=== PATIENT | female | born 1960 | race Caucasian/White ===

== ENCOUNTER 2016-07-08 06:09 | Emergency (ER) | payer OTHER ==
[~2016-07-08] VITALS: Ht 170.2 cm; Wt 72.5 kg
[~2016-07-08 06:09] MED LIST: ATEN1TAB74 PO; CITA20TA4 PO; LISI-363 PO; TRAZ100 PO
[2016-07-08] MEDS ORDERED: LISI-515 PO (06:22)
[2016-07-08 06:23] VITALS: BP 143/86; PULSE 76; RESP 18; TEMP 97.6; O2SAT 100
[2016-07-08] MEDS ORDERED: KETOROLAC TROMETHAMINE 60 MG/2 ML (IM) VIAL IM ONE (07:00)
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
[2016-07-08 07:28] VITALS: BP 134/84; PULSE 58; RESP 16; O2SAT 100
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
--- NOTE | 2016-07-08 08:02 | PD ---
Physical Exam Narrative GENERAL: Well-nourished, well-developed patient. well appearing SKIN: Warm and dry. HEAD: Normocephalic EYES: No injection or drainage. ENT: No nasal drainage noted. NECK: Supple, trachea midline. points to pain to bilateral paraspinal areas RESPIRATORY: No accessory muscle use. back: ttp to right lumbar paraspinal area without midline pain or step off NEUROLOGICAL: Awake and alert. Motor and sensory grossly within normal limits. Normal speech. Data Data Last Documented VS Vital Signs Date Time Temp Pulse Resp B/P Pulse Ox O2 Delivery O2 Flow Rate FiO2 07/08/16 08:40 56 16 143/97 98 Room Air 07/08/16 06:[address] Thorax/ Chest Wo Iv Contras (07/08/16 06:48) Ct Cerv Spine W/O Contrast (07/08/16 06:48) Ct Thor Spine W/O Contrast (07/08/16 06:48) Wrist, Complete ([id number]) (07/08/16 06:48) Ketorolac Inj (Toradol Inj) (07/08/16 07:00) Spine, Lumbar Comp W/Obliq (07/08/16 ) MDM Supervised Visit with REBECCA: No Interpretation(s) Last 24 hours Impressions Wrist X-Ray 07/08/16 0648 Signed Impressions: Service Date/Time: Friday, July 08, 2016 06:57 - CONCLUSION: No acute disease. David Reveles MD ct cervical/thoracic spine no fracture, ct thorax no acute lumbar xray no fracture, loss of disc height l5/s1, no fracture Narrative Course signed over to me to follow imaging and if normal to dc on review of imaging ct thorax ordered by mistake after discussion with patient , patient agrees to hold on ct head and will try to cancel ct thorax, agrees to xrays of lumbar spine added on given right sided pain and if persists mri as an outpatient. lengthy discussion with patient about imaging results and pain not over area with loss of disc space, agrees to no further imaging here and will follow with primary for further care, Patient denies any new complaints and states that they are feeling better. Patient happy with care, all questions answered. Patient knows that follow up is incumbent on them and to return to the emergency room immediately if new or worsening symptoms develop. Patient given strict return precautions, vitals reviewed and are normal, agrees to further workup as an outpatient. Diagnosis Primary Impression: Right low back pain Qualified Code: M54.5 - Acute right-sided low back pain without sciatica Additional Impression: Headache Qualified Code: R51 - Acute nonintractable headache, unspecified headache type Patient Instructions: General Instructions Additional Instruction: follow with primary monday, return as needed, alternate tylenol and motrin, don' t drive while taking muscle relaxant Med/Other Pt SpecificInfo: Prescription(s) given Scripts Metaxalone 400 Mg [id number] Mg PO BID PRN (PAIN SCALE 1 TO 10) #15 TAB Prov:Josi Major MD 07/08/16 Disposition: 01 DISCHARGE HOME Condition: Stable Josi Major MD Jul 08, 2016 08:02
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
[2016-07-08 08:40] VITALS: BP 143/97; PULSE 56; RESP 16; O2SAT 98
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
[2016-07-08] MEDS ORDERED: META1TAB17 PO ×2 (08:58→09:00)
== END 2016-07-08 09:13 | disposition home or self-care (01) ==
LOC: PHED 06:09
DX: M54.5 Low back pain (principal); R51 Headache; M54.2 Cervicalgia; M54.6 Pain in thoracic spine; M25.531 Pain in right wrist; I10 Essential (primary) hypertension; E07.9 Disorder of thyroid, unspecified; Z86.59 Personal history of other mental and behavioral disorders; V89.2XXA Person injured in unspecified motor-vehicle accident, traffic, initial encounter; Y92.410 Unspecified street and highway as the place of occurrence of the external cause
CPT/HCPCS: 71250; 72110; 72125; 72128; 73110; 96372; 99285; J1885

== ENCOUNTER 2016-11-20 09:14 | Emergency (ER) | payer OTHER ==
[~2016-11-20] VITALS: Ht 170.2 cm; Wt 66.0 kg
[~2016-11-20 09:14] MED LIST changes: -ATEN1TAB74 PO; -CITA20TA4 PO; -LISI-363 PO; +LISI-515 PO; +META1TAB17 PO; -TRAZ100 PO
[2016-11-20 09:18] VITALS: BP 131/72; PULSE 71; RESP 16; TEMP 98.3; O2SAT 100
--- NOTE | 2016-11-20 09:32 | PD ---
HPI Chief Complaint: Pain: Acute or Chronic Time Seen by Provider: 09:25 Travel History International Travel<30 days: No Contact w/Intl Traveler<30days: No Traveled to known affect area: No History of Present Illness HPI She presents with worsening left lateral foot pain over several days. Denies any nausea vomiting diarrhea or fever. Denies any trauma misstep or fall. Reports increased edema erythema and pain on weightbearing. Tetanus is up-to- date. PFSH Past Medical History Depression: Yes Diabetes: No Diminished Hearing: No Hypertension: Yes Thyroid Disease: Yes ?: Not Menopausal: Yes : 4 Para: 2 Miscarriage: 2 Past Surgical History Tonsillectomy: Yes Other Surgery: Yes (BREAST AUGMENTATION) Social History Alcohol Use: Yes ([facility]) Tobacco Use: No (QUIT 1994) Substance Use: Yes Allergies-Medications (Allergen,Severity, Reaction): Coded Allergies: No Known Allergies (Verified , 11/20/16) Reported Meds & Prescriptions Reported Meds & Active Scripts Active Reported Lisinopril 20 Mg Tab 20 Mg PO DAILY Review of Systems General / Constitutional: No: Fever Eyes: No: Visual changes HENT: No: Headaches Cardiovascular: No: Chest Pain or Discomfort Respiratory: No: Shortness of Breath Gastrointestinal: No: Abdominal Pain Genitourinary: No: Dysuria Musculoskeletal: No: Pain Skin: No Rash Neurologic: No: Weakness Psychiatric: No: Depression Endocrine: No: Polydipsia Hematologic/Lymphatic: No: Easy Bruising Physical Exam Narrative GENERAL: Well-nourished, well-developed patient. SKIN: Focused skin assessment warm/dry. HEAD: Normocephalic. EYES: No scleral icterus. No injection or drainage. NECK: Supple, trachea midline. No JVD or lymphadenopathy. CARDIOVASCULAR: Regular rate and rhythm without murmurs, gallops, or rubs. RESPIRATORY: Breath sounds equal bilaterally. No accessory muscle use. GASTROINTESTINAL: Abdomen soft, non-tender, nondistended. MUSCULOSKELETAL: No cyanosis, or edema. BACK: Nontender without obvious deformity. No CVA tenderness. Examination the left foot over the fourth and fifth metatarsals does reveal erythema edema and tenderness to palpation without any obvious bony deformities or ecchymosis Data Data Last Documented VS Vital Signs Date Time Temp Pulse Resp B/P (MAP) Pulse Ox O2 Delivery O2 Flow Rate FiO2 11/20/16 09:18 98.3 71 16 131/72 (91) 100 Orders Orders Foot, Limited (2vws) (11/20/16 ) MDM Medical Decision Making Medical Screen Exam Complete: Yes Emergency Medical Condition: Yes Differential Diagnosis Metatarsal fracture, cellulitis, contusion Narrative Course Assessment and plan discussed with patient at bedside. Foot films reveal no acute fracture. Diagnosis Primary Impression: Cellulitis Qualified Codes: L03.116 - Cellulitis of left lower limb Patient Instructions: General Instructions Additional Instructions: Motrin or Tylenol for pain, follow-up with PCP, encouraged antibacterial soap and water 2 times per day, return to emergency with any onset of new symptoms. Patient has crutches at home a use these for comfort. Ice and elevation. Med/Other Pt SpecificInfo: Prescription(s) given Scripts Clindamycin (Clindamycin) 150 Mg Cap 300 MG PO TID for Infection for 7 Days, CAP 0 Refills Prov: Alfredo Modi MD 11/20/16 Disposition: 01 DISCHARGE HOME Condition: Good Alfredo Modi MD Nov 20, 2016 09:32
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
[2016-11-20] MEDS ORDERED: CLIN1CAP5 PO (09:59)
[2016-11-20] MEDS ORDERED: TRAM50TA PO (10:12)
== END 2016-11-20 10:19 | disposition home or self-care (01) ==
LOC: PHED 09:14
DX: L03.116 Cellulitis of left lower limb (principal); M25.572 Pain in left ankle and joints of left foot; F32.9 Major depressive disorder, single episode, unspecified; I10 Essential (primary) hypertension; E07.9 Disorder of thyroid, unspecified; Z87.891 Personal history of nicotine dependence
CPT/HCPCS: 73620; 99283

== ENCOUNTER 2017-05-25 10:45 | Inpatient (IN) | payer OTHER ==
[~2017-05-25] VITALS: Ht 170.2 cm; Wt 60.5 kg
[2017-05-25] VITALS (16 sets, daily range): BP systolic 76–114; BP diastolic 51–81; PULSE 47–84; RESP 16–24; TEMP 97.6–98.6; O2SAT 97–100
[~2017-05-25 10:45] MED LIST changes: +CLIN150C14 PO; -META1TAB17 PO; +TRAM50TA PO
[2017-05-25] MEDS ORDERED: SODIUM CHLOR 0.9% 1000 ML INJ 800 ML IV ONE (11:02)
[2017-05-25] MEDS ORDERED: SODIUM CHLOR 0.9% 1000 ML INJ 1,000 ML IV ONE (11:02)
--- NOTE | 2017-05-25 11:08 | PD ---
HPI Chief Complaint: Dizziness Time Seen by Provider: 10:57 Travel History International Travel<30 days: No Contact w/Intl Traveler<30days: No Traveled to known affect area: No History of Present Illness HPI 56-year-old female with history of chronic back pain, here for evaluation of dizziness/lightheadedness, generalized weakness, nausea, vomiting, diarrhea, low back/flank pain/mid scapular pain. Patient reports that the symptoms of dizziness/lightheadedness started today. For the past couple of days she has been having intermittent aches that have been mid scapular, no modifying factors , pain is sharp, currently she does not have pain in this region. Right now she has right flank pain that radiates to her left lower back that she describes as an ache. No urinary or bowel incontinence or retention. No dysuria or hematuria. No fevers or chills. She denies illicit drug use. Chart review shows that the patient has been here before intoxicated with alcohol. She states she has not had any alcohol in "a while." She has had a few episodes of vomiting and diarrhea over the last couple of days and has some mild left lower quadrant abdominal pain that she describes as an ache, worse with movements. No melena or hematochezia. Emesis is clear. She has had little to eat or drink over the last 2 days of fever of vomiting. [facility] Past Medical History Depression: Yes Diabetes: No Diminished Hearing: No Hypertension: Yes Thyroid Disease: Yes ?: Not Menopausal: Yes : 4 Para: 2 Miscarriage: 2 Past Surgical History Tonsillectomy: Yes Other Surgery: Yes (BREAST AUGMENTATION) Social History Alcohol Use: No (denies) Tobacco Use: No (QUIT 1994) Substance Use: Yes Allergies-Medications (Allergen,Severity, Reaction): Coded Allergies: No Known Allergies (Verified Allergy, Unknown, 05/25/17) Reported Meds & Prescriptions Reported Meds & Active Scripts Active Tramadol (Tramadol HCl) 50 Mg Tab 50 Mg PO Q8H PRN Clindamycin (Clindamycin HCl) 150 Mg Cap 300 Mg PO TID 7 Days Reported Lisinopril 20 Mg Tab 20 Mg PO DAILY Review of Systems Except as stated in HPI: all other systems reviewed are Neg Physical Exam Narrative GENERAL: Well-developed, thin, awake, alert, no apparent distress. SKIN: Focused skin assessment warm/dry. No rash. HEAD: Atraumatic. Normocephalic. EYES: Pupils equal and round. No scleral icterus. No injection or drainage. ENT: Mucous membranes pink and moist. NECK: Trachea midline. No JVD. CARDIOVASCULAR: Regular rate and rhythm. RESPIRATORY: No accessory muscle use. Clear to auscultation. Breath sounds equal bilaterally. GASTROINTESTINAL: Abdomen soft, nondistended. Mild left lower quadrant tenderness without peritoneal signs. Normal bowel sounds. No hernias. MUSCULOSKELETAL: No obvious deformities. No clubbing. No cyanosis. No edema. No midline vertebral step-off or tenderness. Mild right flank tenderness. NEUROLOGICAL: Awake and alert. No obvious cranial nerve deficits. Motor grossly within normal limits. Normal speech. PSYCHIATRIC: Appropriate mood and affect; insight and judgment normal. Data Data Last Documented VS Vital Signs Date Time Temp Pulse Resp B/P (MAP) Pulse Ox O2 Delivery O2 Flow Rate FiO2 05/25/17 16:08 67 16 101/61 (74) 100 Room Air 05/25/17 11:05 97.6 Orders Orders Sepsis Workup Initiated (05/25/17 ) Electrocardiogram (05/25/17 11:02) Complete Blood Count With Diff (05/25/17 11:02) Comprehensive Metabolic Panel (05/25/17 11:02) Prothrombin Time / Inr (Pt) (05/25/17 11:02) Act Partial Throm Time (Ptt) (05/25/17 11:02) Lactic Acid Sepsis Protocol (05/25/17 11:02) Lipase (05/25/17 11:02) Ckmb (Isoenzyme) Profile (05/25/17 11:02) Troponin I (05/25/17 11:02) Urinalysis - C+S If Indicated (05/25/17 11:02) Blood Culture (05/25/17 11:02) Chest, Single Ap (05/25/17 11:02) Ecg Monitoring (05/25/17 11:02) Iv Access Insert/Monitor (05/25/17 11:02) Oximetry (05/25/17 11:02) Sodium Chlor 0.9% 1000 Ml Inj (Ns 1000 M (05/25/17 11:02) Sodium Chlor 0.9% 1000 Ml Inj (Ns 1000 M (05/25/17 11:02) Alcohol (Ethanol) (05/25/17 11:02) Drug Screen, Random Urine (05/25/17 11:02) Urine Culture (05/25/17 12:50) Ceftriaxone Inj (Rocephin Inj) (05/25/17 13:15) Potassium Chloride (Kcl) (05/25/17 13:15) Ct Abd/Pel W/O Iv Contrast (05/25/17 ) Sodium Chlor 0.9% 1000 Ml Inj (Ns 1000 M (05/25/17 13:48) Basic Metabolic Panel (Bmp) (05/25/17 14:31) Protein Corrected Calcium(Pcc) (05/25/17 14:47) Labs Laboratory Tests Test 05/25/17 11:35 05/25/17 12:50 05/25/17 14:47 White Blood Count 14.0 TH/MM3 Red Blood Count 3.61 MIL/MM3 Hemoglobin 12.3 GM/DL Hematocrit 37.1 % Mean Corpuscular Volume 102.8 FL Mean Corpuscular Hemoglobin 34.0 PG Mean Corpuscular Hemoglobin Concent 33.1 % Red Cell Distribution Width 15.7 % Platelet Count 313 TH/MM3 Mean Platelet Volume 9.5 FL Neutrophils (%) (Auto) 77.8 % Lymphocytes (%) (Auto) 13.5 % Monocytes (%) (Auto) 8.1 % Eosinophils (%) (Auto) 0.2 % Basophils (%) (Auto) 0.4 % Neutrophils # (Auto) 10.9 TH/MM3 Lymphocytes # (Auto) 1.9 TH/MM3 Monocytes # (Auto) 1.1 TH/MM3 Eosinophils # (Auto) 0.0 TH/MM3 Basophils # (Auto) 0.1 TH/MM3 CBC Comment DIFF FINAL Differential Comment Prothrombin Time 12.5 SEC Prothromb Time International Ratio 1.2 RATIO Activated Partial Thromboplast Time 27.3 SEC Blood Urea Nitrogen 36 MG/DL 35 MG/DL Creatinine 2.70 MG/DL 2.30 MG/DL Random Glucose 103 MG/DL 86 MG/DL Total Protein 8.1 GM/DL 7.0 GM/DL Albumin 3.3 GM/DL Calcium Level 8.5 MG/DL 7.4 MG/DL Alkaline Phosphatase 120 U/L Aspartate Amino Transf (AST/SGOT) 123 U/L Alanine Aminotransferase (ALT/SGPT) 56 U/L Total Bilirubin 1.6 MG/DL Sodium Level 128 MEQ/L 131 MEQ/L Potassium Level 2.4 MEQ/L 2.4 MEQ/L Chloride Level 86 MEQ/L 94 MEQ/L Carbon Dioxide Level 24.5 MEQ/L 25.0 MEQ/L Anion Gap 18 MEQ/L 12 MEQ/L Estimat Glomerular Filtration Rate 18 ML/MIN 22 ML/MIN Lactic Acid Level 1.8 mmol/L Total Creatine Kinase 95 U/L Troponin I LESS THAN 0.02 NG/ML Lipase 206 U/L Ethyl Alcohol Level LESS THAN 3 MG/DL Urine Collection Type CATH Urine Color YELLOW Urine Turbidity CLEAR Urine pH 6.5 Urine Specific Waucoma LESS/EQUAL 1.005 Urine Protein 30 mg/dL Urine Glucose (UA) NEG mg/dL Urine Ketones NEG mg/dL Urine Occult Blood TRACE Urine Nitrite NEG Urine Bilirubin NEG Urine Urobilinogen 0.2 MG/DL Urine Leukocyte Esterase TRACE Urine RBC 10-14 /hpf Urine WBC 15-19 /hpf Urine Squamous Epithelial Cells 0-5 /hpf Urine Bacteria FEW /hpf Urine Hyaline Casts 3-5 /lpf Microscopic Urinalysis Comment CULTURE INDICATED Urine Collection Time 12:50 Urine Opiates Screen NEG Urine Barbiturates Screen NEG Urine Amphetamines Screen NEG Urine Benzodiazepines Screen NEG Urine Cocaine Screen NEG Urine Cannabinoids Screen NEG Protein Corrected Calcium 7.5 MG/DL MDM Medical Decision Making Medical Screen Exam Complete: Yes Emergency Medical Condition: Yes Medical Record Reviewed: Yes Interpretation(s) EKG: Sinus, rate 64, normal axis, normal intervals, no acute ischemic abnormality. Differential Diagnosis Sepsis, dehydration, metabolic abnormality, UTI, ACS, pneumonia, colitis, diverticulitis, Narrative Course Initial vital signs show heart rate 79, blood pressure 76/51, pulse ox 99% on room air, oral temperature 97.6F. CBC: WBC 14, hemoglobin 12.3, hematocrit 37, platelets 313, MCV 102.8. CMP is remarkable for sodium 120, potassium 2.4, chloride 86, anion gap 18, BUN 36, creatinine 2.7, GFR 18, AST 123, ALT 56, otherwise unremarkable. Cardiac enzymes are negative. Lipase is 206. Lactic acid is 1.8. Alcohol level is negative. UA: 30 protein, trace leukocyte esterase, 10-14 RBCs, 15-19 WBCs, few bacteria, 3-5 hyaline casts, culture indicated. Chest x-ray: No acute cardiopulmonary process. CT abdomen pelvis: CONCLUSION: 1. Two small punctate 2 mm nonobstructing calyceal calculi in the inferior pole of the left kidney. No evidence for obstructive uropathy. 2. Profound hepatic steatosis. 3. Normal appendix. No evidence for bowel obstruction. The patient was made aware of all findings. She was given 2 L of normal saline IV with slight improvement in her blood pressure to 100/70. She was also provided 60 mEq of oral potassium. She admits to history of alcohol abuse, but states that she does not drink nearly as much as she used to. She attends AA meetings, however she did have a relapse about 5 days ago. I told her that my recommendation is for her to stay in the hospital overnight where her potassium can be replaced and she can be given IV fluids to treat her renal insufficiency. Patient is adamant at this point that she does not want to stay in the hospital. She states that she has pets at home that rely on her. I told her I would like to repeat her BMP and would like her to reconsider. She is amenable to this plan. Repeat BMP about 4 hours after initial BMP after the patient had received 2 L of normal saline IV and 60 mEq of oral potassium is remarkable for sodium 131, potassium 2.4, chloride 94, BUN 35, creatinine 2.3, GFR 22, calcium 7.4. Patient was made aware of repeat BMP results and my recommendation is to still admit her for overnight observation for further treatment of dehydration/ electrolyte abnormality. She is now amenable to staying. She will be written for parenteral potassium. Case discussed with hospitalist Dr. London who prefer that the patient be admitted to the [facility] service as the patient's blood pressure remains persistently low. Case discussed with justice of the peace Dr. Rosario who will admit the patient to her service. Diagnosis Primary Impression: Dehydration Additional Impressions: Acute kidney injury Hypokalemia Hyponatremia UTI (urinary tract infection) Qualified Codes: N39.0 - Urinary tract infection, site not specified; R31.9 - Hematuria, unspecified Admitting Information Admitting Physician Requests: Wilfred Vargas MD May 25, 2017 11:08
--- NOTE | 2017-05-25 11:33 | RADRPT ---
EXAM DATE/TIME: 05/25/2017 11:08 [facility] COMPARISON: No previous studies available for comparison. INDICATIONS : Mid scapular chest pain. Nausea, vomiting, diarrhea. MEDICAL HISTORY : Hypertension. Thyroid disease. SURGICAL HISTORY : Tonsillectomy. ENCOUNTER: Initial ACUITY: 2 days PAIN SCORE: 5/10 LOCATION: chest FINDINGS: A single view of the chest demonstrates the lungs to be symmetrically aerated without evidence of mas s, infiltrate or effusion. The cardiomediastinal contours are unremarkable. Osseous structures are intact with a mild levoscoliosis of the thoracolumbar spine. CONCLUSION: No acute cardiopulmonary process. Damon Cardona MD on May 25, 2017 at 11:30 Board Certified Radiologist. This report was verified electronically.
[2017-05-25 11:54] LABS: AUTOMATED NEUTROPHIL # 10.9 TH/MM3 (1.8-7.7); BASOPHIL # 0.1 TH/MM3 (0-0.2); BASOPHIL % 0.4 % (0.0-2.0); EOSINOPHIL % 0.2 % (0.0-4.0); HEMATOCRIT 37.1 % (35.0-46.0); HEMOGLOBIN 12.3 GM/DL (11.6-15.3); LYMPH % 13.5 % (9.0-44.0); LYMPHOCYTE # 1.9 TH/MM3 (1.0-4.8); MEAN CELL VOLUME 102.8 FL (80.0-100.0); MEAN CORPUSCULAR HGB CONC 33.1 % (32.0-36.0); MEAN PLATELET VOLUME 9.5 FL (7.0-11.0); MONO % 8.1 % (0.0-8.0); MONOCYTE # 1.1 TH/MM3 (0-0.9); NEUT % 77.8 % (16.0-70.0); PLATELET COUNT 313 TH/MM3 (150-450); RED BLOOD COUNT 3.61 MIL/MM3 (4.00-5.30); RED CELL DISTRIBUTION WIDTH 15.7 % (11.6-17.2)
[2017-05-25 12:35] LABS: INTERNATIONAL NORMALIZED RATIO 1.2 RATIO; PROTHROMBIN TIME - PATIENT 12.5 SEC (9.8-11.6)
[2017-05-25 12:43] LABS: ALBUMIN 3.3 GM/DL (3.4-5.0); ALKALINE PHOSPHATASE 120 U/L (45-117); ALT (GPT) 56 U/L (10-53); AST (GOT) 123 U/L (15-37); BICARBONATE 24.5 MEQ/L (21.0-32.0); BLOOD UREA NITROGEN 36 MG/DL (7-18); CALCIUM 8.5 MG/DL (8.5-10.1); CHLORIDE 86 MEQ/L (98-107); GLOMERULAR FILTRATION RATE 18 ML/MIN (>89); GLUCOSE,RANDOM 103 MG/DL (74-106); SODIUM (NA) 128 MEQ/L (136-145); TOTAL BILIRUBIN ADULT 1.6 MG/DL (0.2-1.0); TOTAL PROTEIN 8.1 GM/DL (6.4-8.2); TROPONIN I LESS THAN 0.02 NG/ML (0.02-0.05)
[2017-05-25 13:04] LABS: BLOOD, URINE TRACE (NEG); GLUCOSE,URINE NEG (NEG); KETONE, URINE NEG (NEG); NITRITE,URINE NEG (NEG); PH, URINE 6.5 (5.0-8.5); URINE COLOR YELLOW (YELLW/STRAW); URINE LEUKOCYTE ESTERASE TRACE (NEG)
[2017-05-25 13:08] LABS: BILIRUBIN, URINE NEG (NEG)
[2017-05-25 13:09] LABS: BACTERIA, URINE FEW /hpf; SQUAMOUS EPITHELIAL CELL URINE 0-5 /hpf (0-5); WBC, URINE 15-19 /hpf (0-5)
[2017-05-25] MEDS ORDERED: cefTRIAXone INJ 1,000 MG in SODIUM CHLORIDE 0.9% INJ 100 ML IV ONE (13:15)
[2017-05-25] MEDS ORDERED: POTASSIUM CHLORIDE 20 MEQ CONTROLLED RELEASE TAB PO ONE (13:15)
[2017-05-25] MEDS ORDERED: SODIUM CHLOR 0.9% 1000 ML INJ 1,000 ML IV SCH (13:48)
--- NOTE | 2017-05-25 14:21 | RADRPT ---
EXAM DATE/TIME: 05/25/2017 13:35 [facility] COMPARISON: No previous studies available for comparison. INDICATIONS : Lower abdominal and back pain. Nausea, vomiting and diarrhea. ORAL CONTRAST: No oral contrast ingested. RADIATION DOSE: 5.46 CTDIvol (mGy) MEDICAL HISTORY : Hypertension. Hypothyroidism. SURGICAL HISTORY : None. ENCOUNTER: Initial ACUITY: 2 days PAIN SCALE: 2/10 LOCATION: Bilateral lower quadrant TECHNIQUE: Volumetric scanning of the abdomen and pelvis was performed. Using automated exposure control and ad justment of the mA and/or kV according to patient size, radiation dose was kept as low as reasonably achievable to obtain optimal diagnostic quality images. DICOM format image data is available electro nically for review and comparison. FINDINGS: LOWER LUNGS: The visualized lower lungs are clear. LIVER: Prominent diffuse decreased hepatic attenuation and hepatomegaly without focal mass or intrahepatic d uctal dilatation. The gallbladder is grossly unremarkable by CT. SPLEEN: Normal size without lesion. PANCREAS: Within normal limits. KIDNEYS: There are 2 small punctate 2 mm calyceal calcifications in the inferior pole of the left kidney. The kidneys are otherwise symmetrical in size without evidence for hydronephrosis or contour deforming ab normality. ADRENAL GLANDS: Within normal limits. VASCULAR: There is no aortic aneurysm. BOWEL/MESENTERY: The stomach, small bowel, and colon demonstrate no acute abnormality. There is no free intraperitone al air or fluid. Appendix is visualized and normal in appearance. ABDOMINAL WALL: Within normal limits. RETROPERITONEUM: There is no lymphadenopathy. BLADDER: No wall thickening or mass. No bladder calculi. REPRODUCTIVE: Within normal limits. INGUINAL: There is no lymphadenopathy or hernia. MUSCULOSKELETAL: Within normal limits for patient age. CONCLUSION: 1. Two small punctate 2 mm nonobstructing calyceal calculi in the inferior pole of the left kidney. N o evidence for obstructive uropathy. 2. Profound hepatic steatosis. 3. Normal appendix. No evidence for bowel obstruction. Yoshi Barnes MD on May 25, 2017 at 14:08 Board Certified Radiologist. This report was verified electronically.
[2017-05-25 15:39] LABS: CALCIUM 7.4 MG/DL (8.5-10.1); CREATININE 2.3 MG/DL (0.50-1.00)
[2017-05-25 16:02] LABS: CALCIUM-PROTEIN CORRECTED 7.5 MG/DL (8.5-10.1)
[2017-05-25] MEDS: POTASSIUM CHLOR 20 MEQ PREMIX 100 ML IV SCH ×2 (16:42→19:04)
--- NOTE | 2017-05-25 17:55 | HHI.HP ---
[facility] Service Critical Care Medicine Primary Care Physician Logan Bermudez M.D. Admission Diagnosis Dehydration, OMAR, hypokalemia, hyponatremia, UTI Diagnosis: Travel History International Travel<30 Days: No Contact w/Intl Traveler <30 Da: No Traveled to Known Affected Are: No History of Present Illness History of Present Illness HPI This is a 56-year-old female that presented to the [place] emergency department with complaints of dizziness/lightheadedness, generalized weakness, nausea, vomiting, diarrhea, low back/flank pain/mid scapular pain. Patient reports that the symptoms of dizziness/lightheadedness started yesterday and became progressively worse. Right now she has right flank pain and right lower pelvis that radiates to her left lower back that she describes as an ache. No urinary or bowel incontinence or retention. No dysuria or hematuria. No fevers or chills. She denies illicit drug use. She states she has not had any alcohol in a while, however reported to me she had approximately had a alcoholic binge 4-5 days ago She has had a few episodes of vomiting and diarrhea over the last couple of days, no melena or hematochezia. Emesis is clear. She has had little to eat or drink over the last 2 days of fever of vomiting. The patient's medical history significant for chronic back pain which she takes baclofen, and Motrin 800 mg. The patient also has a history of hypertension and takes Lisinopril last dose reportedly 2 days ago. Critical care medicine is consulted for patient's low blood pressure. Upon my evaluation in the ED patient's blood pressure systolic 109-115. Patient alert and oriented 3 responding to questions appropriately, with heart rate in the 70s. Patient currently drinking water and Gatorade, and occasionally having bouts of nausea. 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 Reported alcohol binge 4-5 days ago Tobacco Use: No (QUIT 1994) Substance Use: Yes Allergies-Medications Allergies-Medications (Allergen,Severity, Reaction): Coded Allergies: No Known Allergies (Verified Allergy, Unknown, 05/25/17) Reported Meds & Prescriptions Reported Meds & Active Scripts Active Tramadol (Tramadol HCl) 50 Mg Tab 50 Mg PO Q8H PRN Clindamycin (Clindamycin HCl) 150 Mg Cap 300 Mg PO TID 7 Days Reported Lisinopril 20 Mg Tab 20 Mg PO DAILY ROS Review of Systems Except as stated in HPI: 12 point review of systems negative with the exception of HPI Physical Exam Vital Signs Vital Signs Date Time Temp Pulse Resp B/P (MAP) Pulse Ox O2 Delivery O2 Flow Rate FiO2 05/25/17 16:49 49 16 109/66 (80) 99 Room Air 05/25/17 16:08 67 16 101/61 (74) 100 Room Air 05/25/17 15:03 47 16 97/58 (71) Room Air 05/25/17 14:05 64 16 101/68 (79) 100 Room Air 05/25/17 12:57 56 16 88/56 (67) 100 Room Air 05/25/17 11:51 58 16 91/60 (70) 100 Room Air 05/25/17 11:10 100 Room Air 05/25/17 11:05 97.6 84 16 80/69 (73) 97 Room Air 05/25/17 10:46 97.6 79 16 76/51 (59) 99 Physical Exam GENERAL: Well-developed well-nourished female of stated age in mild to SKIN: Warm and dry. HEAD: Atraumatic. Normocephalic. EYES: Pupils equal and round. 2 mm and brisk. EOMI. no scleral icterus. No injection or drainage. ENT: No nasal bleeding or discharge. Mucous membranes pink and moist. NECK: Trachea midline. No JVD. CARDIOVASCULAR: Normal rate, regular rhythm. RESPIRATORY: No accessory muscle use. Clear to auscultation. Breath sounds equal bilaterally. GASTROINTESTINAL: Abdomen soft, nondistended right lower quadrant pelvic region mild pain on deep palpation. No guarding. No rebound tenderness. Bowel sounds are present MUSCULOSKELETAL: Extremities without clubbing, cyanosis, or edema. No obvious deformities. NEUROLOGICAL: GCS 15 awake and alert. RASS 0. No gross focal/sensory deficits. Follows commands in all 4 extremities. Motor strength 5/5 bilateral upper and lower extremities Laboratory Laboratory Tests Test 05/25/17 11:35 05/25/17 12:50 05/25/17 14:47 White Blood Count 14.0 Red Blood Count 3.61 Hemoglobin 12.3 Hematocrit 37.1 Mean Corpuscular Volume 102.8 Mean Corpuscular Hemoglobin 34.0 Mean Corpuscular Hemoglobin Concent 33.1 Red Cell Distribution Width 15.7 Platelet Count 313 Mean Platelet Volume 9.5 Neutrophils (%) (Auto) 77.8 Lymphocytes (%) (Auto) 13.5 Monocytes (%) (Auto) 8.1 Eosinophils (%) (Auto) 0.2 Basophils (%) (Auto) 0.4 Neutrophils # (Auto) 10.9 Lymphocytes # (Auto) 1.9 Monocytes # (Auto) 1.1 Eosinophils # (Auto) 0.0 Basophils # (Auto) 0.1 CBC Comment DIFF FINAL Differential Comment Prothrombin Time 12.5 Prothromb Time International Ratio 1.2 Activated Partial Thromboplast Time 27.3 Blood Urea Nitrogen 36 35 Creatinine 2.70 2.30 Random Glucose 103 86 Total Protein 8.1 7.0 Albumin 3.3 Calcium Level 8.5 7.4 Alkaline Phosphatase 120 Aspartate Amino Transf (AST/SGOT) 123 Alanine Aminotransferase (ALT/SGPT) 56 Total Bilirubin 1.6 Sodium Level 128 131 Potassium Level 2.4 2.4 Chloride Level 86 94 Carbon Dioxide Level 24.5 25.0 Anion Gap 18 12 Estimat Glomerular Filtration Rate 18 22 Lactic Acid Level 1.8 Total Creatine Kinase 95 Troponin I LESS THAN 0.02 Lipase 206 Ethyl Alcohol Level LESS THAN 3 Urine Collection Type CATH Urine Color YELLOW Urine Turbidity CLEAR Urine pH 6.5 Urine Specific [place] LESS/EQUAL 1.005 Urine Protein 30 Urine Glucose (UA) NEG Urine Ketones NEG Urine Occult Blood TRACE Urine Nitrite NEG Urine Bilirubin NEG Urine Urobilinogen 0.2 Urine Leukocyte Esterase TRACE Urine RBC 10-14 Urine WBC 15-19 Urine Squamous Epithelial Cells 0-5 Urine Bacteria FEW Urine Hyaline Casts 3-5 Microscopic Urinalysis Comment CULTURE INDICATED Urine Collection Time 12:50 Urine Opiates Screen NEG Urine Barbiturates Screen NEG Urine Amphetamines Screen NEG Urine Benzodiazepines Screen NEG Urine Cocaine Screen NEG Urine Cannabinoids Screen NEG Protein Corrected Calcium 7.5 Date/Time Source Procedure Growth Status 05/25/17 11:35 Blood Peripheral Aerobic Blood Culture Pending Received 05/25/17 11:35 Blood Peripheral Anaerobic Blood Culture Pending Received 05/25/17 12:50 Urine Catheterized Urine Urine Culture Pending Received Result Diagram: 05/25/17 1135 05/25/17 1447 Imaging Last Impressions Chest X-Ray 05/25/17 1102 Signed Impressions: Service Date/Time: May 11:08 - CONCLUSION: No acute cardiopulmonary process. Damon Cardona MD Abdomen/Pelvis CT 05/25/17 0000 Signed Impressions: Service Date/Time: May 13:35 - CONCLUSION: 1. Two small punctate 2 mm nonobstructing calyceal calculi in the inferior pole of the left kidney. No evidence for obstructive uropathy. 2. Profound hepatic steatosis. 3. Normal appendix. No evidence for bowel obstruction. Yoshi Barnes MD Septic Shock Reassessment Septic shock perfusion: reassessment completed Caprini VTE Risk Assessment Caprini VTE Risk Assessment: Mod/High Risk (score >= 2) Caprini Risk Assessment Model Point Value = 1 Point Value = 2 Point Value = 3 Point Value = 5 Age 41-60 Minor surgery BMI > 25 kg/m2 Swollen legs Varicose veins or History of unexplained or recurrent spontaneous Oral contraceptives or hormone replacement Sepsis (< 1 month) Serious lung disease, including pneumonia (< 1 month) Abnormal pulmonary function Acute myocardial infarction Congestive heart failure (< 1 month) History of inflammatory bowel disease Medical patient at bed rest Age 61-74 Arthroscopic surgery Major open surgery (> 45 min) Laparoscopic surgery (> 45 min) Malignancy Confined to bed (> 72 hours) Immobilizing plaster cast Central venous access Age >= 75 History of VTE Family history of VTE Factor V Leiden Prothrombin 32063H Lupus anticoagulant Anticardiolipin antibodies Elevated serum homocysteine Heparin-induced thrombocytopenia Other congenital or acquired thrombophilia Stroke (< 1 month) Elective arthroplasty Hip, pelvis, or leg fracture Acute spinal cord injury (< 1 month) Prophylaxis Regimen Total Risk Factor Score Risk Level Prophylaxis Regimen 0-1 Low Early ambulation 2 Moderate Order ONE of the following: *Sequential Compression Device (SCD) *Heparin 5000 units SQ BID 3-4 Higher Order ONE of the following medications: *Heparin 5000 units SQ TID *Enoxaparin/Lovenox 40 mg SQ daily (WT < 150 kg, CrCl > 30 mL/min) *Enoxaparin/Lovenox 30 mg SQ daily (WT < 150 kg, CrCl > 10-29 mL/min) *Enoxaparin/Lovenox 30 mg SQ BID (WT < 150 kg, CrCl > 30 mL/min) AND/OR *Sequential Compression Device (SCD) 5 or more Highest Order ONE of the following medications: *Heparin 5000 units SQ TID (Preferred with Epidurals) *Enoxaparin/Lovenox 40 mg SQ daily (WT < 150 kg, CrCl > 30 mL/min) *Enoxaparin/Lovenox 30 mg SQ daily (WT < 150 kg, CrCl > 10-29 mL/min) *Enoxaparin/Lovenox 30 mg SQ BID (WT < 150 kg, CrCl > 30 mL/min) AND *Sequential Compression Device (SCD) Assessment and Plan Problem List: (1) Dehydration ICD Code: E86.0 - Dehydration Status: Acute (2) Right low back pain ICD Code: M54.5 - Low back pain Status: Acute (3) Headache ICD Code: R51 - Headache Status: Acute (4) Hypokalemia ICD Code: E87.6 - Hypokalemia Status: Acute (5) Hyponatremia ICD Code: E87.1 - Hypo-osmolality and hyponatremia Status: Acute (6) UTI (urinary tract infection) ICD Code: N39.0 - Urinary tract infection, site not specified Status: Acute (7) Acute kidney injury ICD Code: N17.9 - Acute kidney failure, unspecified Status: Acute (8) Electrolyte imbalance ICD Code: E87.8 - Other disorders of electrolyte and fluid balance, not elsewhere classified Assessment and Plan Assessment Is a 56-year-old female that presented with hypotension and hypokalemia and hyponatremia, initially with hypotension, now resolved. Admit to ICU. Plan by systems: Neurologic: Syncope Chronic back pain Neuro checks per ICU protocol Avoid long-acting sedative medication Patient previously on tramadol and Motrin 800 mg , baclofen home meds will hold for now We will avoid acetaminophen secondary to hepatomegaly, will avoid ketorolac secondary to elevated creatinine Consider fentanyl low-dose if needed for pain scale 7-[address] brain Obtain random cortisol level Respiratory: Maintain O2 sat greater than 92% Currently on room air O2 saturation 100% Incentive spirometry Duo nebs every 4 hours for wheezing as needed Cardiovascular: Hypotension History of hypertension Maintain MAP greater than 65 Continue IV fluids Initial troponin <0.02 Renal: Possible UTI OMAR No Koo indicated at this TMP- SMX 1 tab BID x 3 days -- Strict I/Os FEN/GI: Fatty liver Dehydration Nausea Elevated liver enzymes Hypoalbuminemia Continue IV fluids normal saline with 20 of KCL Replete electrolytes per ICU protocol Trend sodium levels every 6 hours Zofran for nausea Clear liquid diet Obtain triglyceride level Obtain hepatitis panel 05/25 Lipase 206 Obtain gallbladder ultrasound 05/25 albumin 3.3 Home med- lisinopril for hypertension-we will hold in the setting of OMAR Avoid nephrotoxic drugs Heme/ID: Leukocytosis Monitor CBC Provide TMP-SMX x 3 days for possible UTI-we will de-escalate upon culture results Follow-up blood and urine culture Endocrine: Hypothyroidism ? Thyroid disease noted in all previous medical records obtain Thyroid panel -- SSI Prophylaxis: GI Prophylaxis Protonix DVT Prophylaxis -- SCDs Heparin SQ BID Lines: Peripheral IVs 2. Central line if indicated Dispo: Level 3 admission Code Status Full Discussed Condition With Dr. Means, and ED RN at bedside Problem Qualifiers (1) UTI (urinary tract infection): Qualified Codes: N39.0 - Urinary tract infection, site not specified; R31.9 - Hematuria, unspecified Nedra Rosario MD May 25, 2017 17:55
[2017-05-25] MEDS ORDERED: MISCELLANEOUS NURSING INFORMATION XX SCH (18:00)
[2017-05-25] MEDS ORDERED: BISACODYL 10 MG SUPP RECTAL PRN (18:00)
[2017-05-25] MEDS ORDERED: LACTULOSE SYRUP 20 GM/30 ML CUP PO PRN (18:00)
[2017-05-25] MEDS ORDERED: RESP: ALBUTEROL 2.5 MG/IPRATROPIUM 0.5 MG NEB (PRN) INH (18:00)
[2017-05-25] MEDS ORDERED: SODIUM CHLORIDE 0.9% FLUSH 10 ML FLUSH IV FLUSH PRN (18:00)
[2017-05-25] MEDS ORDERED: SENNOSIDES 8.6 MG TAB PO PRN (18:00)
[2017-05-25] MEDS ORDERED: ONDANSETRON HCL 4 MG/2 ML VIAL IV PUSH PRN (18:00)
[2017-05-25] MEDS ORDERED: CHLORHEXIDINE GLUCONATE 2 % 1 PACK (2 CLOTHS) TOP PRN (18:00)
[2017-05-25] MEDS ORDERED: MAGNESIUM HYDROXIDE SUSP 30 ML CUP PO PRN (18:00)
[2017-05-25] MEDS: NS + KCL 20 MEQ INJ 1,000 ML IV SCH (19:04)
[2017-05-25] MEDS: HEPARIN SODIUM - SQ 10,000 UNITS/ML VIAL SQ SCH (20:19)
[2017-05-25] MEDS: SULFAMETHOXAZOLE-TRIMETHOPRIM DS 800-160 MG TAB PO SCH (20:19)
[2017-05-25] MEDS: DOCUSATE SODIUM 50 MG/SENNA 8.6 MG TAB PO SCH (20:19)
[2017-05-25] MEDS: SODIUM CHLORIDE 0.9% FLUSH 10 ML FLUSH IV FLUSH SCH (20:21)
[2017-05-25] MEDS: PANTOPRAZOLE SODIUM 40 MG VIAL IV PUSH SCH (20:21)
[2017-05-26] VITALS (28 sets, daily range): BP systolic 92–119; BP diastolic 58–80; PULSE 52–86; RESP 11–30; TEMP 98.1–99.4; O2SAT 100
[2017-05-26 01:34] LABS: CHOLESTEROL/ HDL RATIO 13.85 RATIO; FREE T3 1.68 PG/ML (2.18-3.98); HDL CHOLESTEROL 19.7 MG/DL (40.0-60.0); THYROXINE (T4) 9.4 MCG/DL (4.8-13.9)
--- NOTE | 2017-05-26 02:51 | RADRPT ---
EXAM DATE/TIME: 05/26/2017 02:25 [place] COMPARISON: CT BRAIN W/O CONTRAST, May 31, 2014, 23:11. INDICATIONS : Dizziness. RADIATION DOSE: 55.65 CTDIvol (mGy) MEDICAL HISTORY : Hypothyroidism. Hypertension. SURGICAL HISTORY : None. ENCOUNTER: Initial ACUITY: 1 day PAIN SCALE: 0/10 LOCATION: cranial TECHNIQUE: Multiple contiguous axial images were obtained of the head. Using automated exposure control and adj ustment of the mA and/or kV according to patient size, radiation dose was kept as low as reasonably a chievable to obtain optimal diagnostic quality images. DICOM format image data is available electro nically for review and comparison. FINDINGS: CEREBRUM: The ventricles are normal for age. No evidence of midline shift, mass lesion, hemorrhage or acute in farction. No extra-axial fluid collections are seen. POSTERIOR FOSSA: The cerebellum and brainstem are intact. The 4th ventricle is midline. The cerebellopontine angle i s unremarkable. EXTRACRANIAL: The visualized portion of the orbits is intact. SKULL: The calvaria is intact. No evidence of skull fracture. CONCLUSION: No acute disease. Diego El Jr., MD on May 26, 2017 at 2:49 Board Certified Radiologist. This report was verified electronically.
[2017-05-26] MEDS: CHLORHEXIDINE GLUCONATE 2 % 1 PACK (2 CLOTHS) TOP SCH (04:00)
[2017-05-26 04:54] LABS: AUTOMATED NEUTROPHIL # 5.3 TH/MM3 (1.8-7.7); BASOPHIL % 0.4 % (0.0-2.0); EOSINOPHIL % 0.5 % (0.0-4.0); HEMATOCRIT 26.7 % (35.0-46.0); HEMOGLOBIN 8.9 GM/DL (11.6-15.3); LYMPH % 15.5 % (9.0-44.0); LYMPHOCYTE # 1.1 TH/MM3 (1.0-4.8); MEAN CELL VOLUME 103.1 FL (80.0-100.0); MEAN CORPUSCULAR HEMOGLOBIN 34.2 PG (27.0-34.0); MEAN CORPUSCULAR HGB CONC 33.2 % (32.0-36.0); MEAN PLATELET VOLUME 8.6 FL (7.0-11.0); MONO % 11.7 % (0.0-8.0); MONOCYTE # 0.8 TH/MM3 (0-0.9); NEUT % 71.9 % (16.0-70.0); PLATELET COUNT 197 TH/MM3 (150-450); RED BLOOD COUNT 2.59 MIL/MM3 (4.00-5.30); RED CELL DISTRIBUTION WIDTH 15.1 % (11.6-17.2); WHITE BLOOD COUNT 7.2 TH/MM3 (4.0-11.0)
[2017-05-26 05:06] LABS: INTERNATIONAL NORMALIZED RATIO 1.3 RATIO; PROTHROMBIN TIME - PATIENT 13.5 SEC (9.8-11.6)
[2017-05-26 05:13] LABS: ALBUMIN 2.5 GM/DL (3.4-5.0); BICARBONATE 19.3 MEQ/L (21.0-32.0); CALCIUM-PROTEIN CORRECTED 7.6 MG/DL (8.5-10.1); CREATININE 1.8 MG/DL (0.50-1.00); MAGNESIUM 1.2 MG/DL (1.5-2.5); PHOSPHORUS 0.7 MG/DL (2.5-4.9); TOTAL BILIRUBIN ADULT 1.1 MG/DL (0.2-1.0); TOTAL PROTEIN 5.9 GM/DL (6.4-8.2)
[2017-05-26] MEDS ORDERED: ICU - CALL ORDERING PHYSICIAN PRN (06:00)
[2017-05-26] MEDS ORDERED: SODIUM CHLOR 0.9% IV ONE (06:00)
[2017-05-26] MEDS ORDERED: ICU - MAGNESIUM SULFATE 4 GM/NS 100 ML IV PRN ×2 (06:00)
[2017-05-26] MEDS ORDERED: ICU - MAGNESIUM OXIDE 400 MG TAB PO PRN (06:00)
[2017-05-26] MEDS ORDERED: CALCIUM GLUCONATE INJ 2 GM in SODIUM CHLORIDE 0.9% INJ 100 ML IV ONE (06:00)
[2017-05-26] MEDS ORDERED: CALCIUM GLUCONATE IV ONE (06:00)
[2017-05-26] MEDS ORDERED: ICU - POTASSIUM PHOSPHATE 30 MMOL/NS 250 ML IV PRN ×2 (06:00)
[2017-05-26] MEDS ORDERED: ICU - POTASSIUM PHOSPHATE MONOBASIC 500 MG TAB PO PRN (06:00)
[2017-05-26] MEDS ORDERED: POTASSIUM CHLORIDE 25 MEQ EFFERVESCENT TAB PO PRN (06:00)
[2017-05-26] MEDS ORDERED: ICU - MAGNESIUM SULFATE 2 GM/NS 100 ML IV PRN ×2 (06:00)
[2017-05-26] MEDS ORDERED: ICU - SODIUM PHOSPHATE 30 MMOL/NS 250 ML IV PRN ×2 (06:00)
[2017-05-26] MEDS ORDERED: ICU - D/C ICU ELECTROLYTE ORDERS PRN (06:00)
[2017-05-26] MEDS ORDERED: ICU - POTASSIUM CHLORIDE/AQUEOUS SOLN 40 MEQ/100 ML IVPB IV PRN (06:00)
[2017-05-26] MEDS: ICU - POTASSIUM CHLORIDE/AQUEOUS SOLN 20 MEQ/100 ML IVPB IV PRN ×4 (06:17→15:26)
[2017-05-26] MEDS: NS + KCL 20 MEQ INJ 1,000 ML IV SCH ×2 (06:20→20:37)
--- NOTE | 2017-05-26 07:08 | HHI.CCPN ---
Subjective Remarks/Hospital Course This is a 56-year-old female that presented to the [place] emergency department with complaints of dizziness/lightheadedness, generalized weakness, nausea, vomiting, diarrhea, low back/flank pain/mid scapular pain. Patient reports that the symptoms of dizziness/lightheadedness started yesterday and became progressively worse. Right now she has right flank pain and right lower pelvis that radiates to her left lower back that she describes as an ache. No urinary or bowel incontinence or retention. No dysuria or hematuria. No fevers or chills. She denies illicit drug use. She states she has not had any alcohol in a while, however reported to me she had approximately had a alcoholic binge 4-5 days ago She has had a few episodes of vomiting and diarrhea over the last couple of days, no melena or hematochezia. Emesis is clear. She has had little to eat or drink over the last 2 days of fever of vomiting. The patient's medical history significant for chronic back pain which she takes baclofen, and Motrin 800 mg. The patient also has a history of hypertension and takes Lisinopril last dose reportedly 2 days ago. Critical care medicine is consulted for patient's low blood pressure. Upon my evaluation in the ED patient's blood pressure systolic 109-115. Patient alert and oriented 3 responding to questions appropriately, with heart rate in the 70s. Patient currently drinking water and Gatorade, and occasionally having bouts of nausea. 05/26 No events overnight. On room air oxygen. Afebrile. Awake and alert. Objective Vital Signs Date Time Temp Pulse Resp B/P (MAP) Pulse Ox O2 Delivery O2 Flow Rate FiO2 05/26/17 06:00 11 95/69 (78) 100 05/26/17 05:00 61 05/26/17 04:00 99.4 05/25/17 19:30 21 05/25/17 17:51 Room Air Intake and Output 05/26/17 05/26/17 05/27/17 08:00 16:00 00:00 Intake Total 1240 ml Output Total 950 ml Balance 290 ml Result Diagram: 05/26/17 0440 05/26/17 0440 Other Results Laboratory Tests Test 05/25/17 11:35 05/25/17 12:50 05/25/17 14:47 05/25/17 18:55 White Blood Count 14.0 TH/MM3 Red Blood Count 3.61 MIL/MM3 Hemoglobin 12.3 GM/DL Hematocrit 37.1 % Mean Corpuscular Volume 102.8 FL Mean Corpuscular Hemoglobin 34.0 PG Mean Corpuscular Hemoglobin Concent 33.1 % Red Cell Distribution Width 15.7 % Platelet Count 313 TH/MM3 Mean Platelet Volume 9.5 FL Neutrophils (%) (Auto) 77.8 % Lymphocytes (%) (Auto) 13.5 % Monocytes (%) (Auto) 8.1 % Eosinophils (%) (Auto) 0.2 % Basophils (%) (Auto) 0.4 % Neutrophils # (Auto) 10.9 TH/MM3 Lymphocytes # (Auto) 1.9 TH/MM3 Monocytes # (Auto) 1.1 TH/MM3 Eosinophils # (Auto) 0.0 TH/MM3 Basophils # (Auto) 0.1 TH/MM3 CBC Comment DIFF FINAL Differential Comment Prothrombin Time 12.5 SEC Prothromb Time International Ratio 1.2 RATIO Activated Partial Thromboplast Time 27.3 SEC Blood Urea Nitrogen 36 MG/DL 35 MG/DL Creatinine 2.70 MG/DL 2.30 MG/DL Random Glucose 103 MG/DL 86 MG/DL Total Protein 8.1 GM/DL 7.0 GM/DL Albumin 3.3 GM/DL Calcium Level 8.5 MG/DL 7.4 MG/DL Alkaline Phosphatase 120 U/L Aspartate Amino Transf (AST/SGOT) 123 U/L Alanine Aminotransferase (ALT/SGPT) 56 U/L Total Bilirubin 1.6 MG/DL Sodium Level 128 MEQ/L 131 MEQ/L Potassium Level 2.4 MEQ/L 2.4 MEQ/L Chloride Level 86 MEQ/L 94 MEQ/L Carbon Dioxide Level 24.5 MEQ/L 25.0 MEQ/L Anion Gap 18 MEQ/L 12 MEQ/L Estimat Glomerular Filtration Rate 18 ML/MIN 22 ML/MIN Lactic Acid Level 1.8 mmol/L Total Creatine Kinase 95 U/L Troponin I LESS THAN 0.02 NG/ML Lipase 206 U/L Ethyl Alcohol Level LESS THAN 3 MG/DL Urine Collection Type CATH Urine Color YELLOW Urine Turbidity CLEAR Urine pH 6.5 Urine Specific [place] LESS/EQUAL 1.005 Urine Protein 30 mg/dL Urine Glucose (UA) NEG mg/dL Urine Ketones NEG mg/dL Urine Occult Blood TRACE Urine Nitrite NEG Urine Bilirubin NEG Urine Urobilinogen 0.2 MG/DL Urine Leukocyte Esterase TRACE Urine RBC 10-14 /hpf Urine WBC 15-19 /hpf Urine Squamous Epithelial Cells 0-5 /hpf Urine Bacteria FEW /hpf Urine Hyaline Casts 3-5 /lpf Microscopic Urinalysis Comment CULTURE INDICATED Urine Collection Time 12:50 Urine Opiates Screen NEG Urine Barbiturates Screen NEG Urine Amphetamines Screen NEG Urine Benzodiazepines Screen NEG Urine Cocaine Screen NEG Urine Cannabinoids Screen NEG Protein Corrected Calcium 7.5 MG/DL Ammonia LESS THAN 10 MCMOL/L Test 05/25/17 19:01 05/25/17 19:25 05/26/17 04:40 Nasal Screen MRSA (PCR) MRSA NOT DETECTED Sodium Level 131 MEQ/L 132 MEQ/L Triglycerides Level 256 MG/DL Cholesterol Level 273 MG/DL LDL Cholesterol 202 MG/DL HDL Cholesterol 19.7 MG/DL Cholesterol/HDL Ratio 13.85 RATIO Thyroxine (T4) 9.4 MCG/DL Free Triiodothyronine (T3) pg/dL 1.68 PG/ML Thyroid Stimulating Hormone 3rd Gen 6.210 uIU/ML Random Cortisol 22.7 MCG/DL Hepatitis A IgM Antibody NONREACTIVE Hepatitis B Surface Antigen NONREACTIVE Hepatitis B Core IgM Antibody NONREACTIVE Hepatitis C IgG Antibody NONREACTIVE White Blood Count 7.2 TH/MM3 Red Blood Count 2.59 MIL/MM3 Hemoglobin 8.9 GM/DL Hematocrit 26.7 % Mean Corpuscular Volume 103.1 FL Mean Corpuscular Hemoglobin 34.2 PG Mean Corpuscular Hemoglobin Concent 33.2 % Red Cell Distribution Width 15.1 % Platelet Count 197 TH/MM3 Mean Platelet Volume 8.6 FL Neutrophils (%) (Auto) 71.9 % Lymphocytes (%) (Auto) 15.5 % Monocytes (%) (Auto) 11.7 % Eosinophils (%) (Auto) 0.5 % Basophils (%) (Auto) 0.4 % Neutrophils # (Auto) 5.3 TH/MM3 Lymphocytes # (Auto) 1.1 TH/MM3 Monocytes # (Auto) 0.8 TH/MM3 Eosinophils # (Auto) 0.0 TH/MM3 Basophils # (Auto) 0.0 TH/MM3 CBC Comment DIFF FINAL Differential Comment Prothrombin Time 13.5 SEC Prothromb Time International Ratio 1.3 RATIO Blood Urea Nitrogen 30 MG/DL Creatinine 1.80 MG/DL Random Glucose 85 MG/DL Total Protein 5.9 GM/DL Albumin 2.5 GM/DL Calcium Level 7.0 MG/DL Phosphorus Level 0.7 MG/DL Magnesium Level 1.2 MG/DL Alkaline Phosphatase 88 U/L Aspartate Amino Transf (AST/SGOT) 99 U/L Alanine Aminotransferase (ALT/SGPT) 43 U/L Total Bilirubin 1.1 MG/DL Potassium Level 2.9 MEQ/L Chloride Level 103 MEQ/L Carbon Dioxide Level 19.3 MEQ/L Anion Gap 10 MEQ/L Estimat Glomerular Filtration Rate 29 ML/MIN Protein Corrected Calcium 7.6 MG/DL Imaging Last Impressions Chest X-Ray 05/25/17 1102 Signed Impressions: Service Date/Time: May 11:08 - CONCLUSION: No acute cardiopulmonary process. Damon Cardona MD Head CT 05/25/17 0000 Signed Impressions: Service Date/Time: Friday, May 26, 2017 02:25 - CONCLUSION: No acute disease. Diego El Jr., MD Abdomen/Pelvis CT 05/25/17 0000 Signed Impressions: Service Date/Time: May 13:35 - CONCLUSION: 1. Two small punctate 2 mm nonobstructing calyceal calculi in the inferior pole of the left kidney. No evidence for obstructive uropathy. 2. Profound hepatic steatosis. 3. Normal appendix. No evidence for bowel obstruction. Yoshi Barnes MD Objective Remarks GENERAL: Well-developed well-nourished female of stated age in mild to SKIN: Warm and dry. HEAD: Atraumatic. Normocephalic. EYES: Pupils equal and round. 2 mm and brisk. EOMI. no scleral icterus. No injection or drainage. ENT: No nasal bleeding or discharge. Mucous membranes pink and moist. NECK: Trachea midline. No JVD. CARDIOVASCULAR: Normal rate, regular rhythm. RESPIRATORY: No accessory muscle use. Clear to auscultation. Breath sounds equal bilaterally. GASTROINTESTINAL: Abdomen soft, nondistended right lower quadrant pelvic region mild pain on deep palpation. No guarding. No rebound tenderness. Bowel sounds are present MUSCULOSKELETAL: Extremities without clubbing, cyanosis, or edema. No obvious deformities. NEUROLOGICAL: GCS 15 awake and alert. RASS 0. No gross focal/sensory deficits. Follows commands in all 4 extremities. Motor strength 5/5 bilateral upper and lower extremities A/P Problem List: (1) Dehydration ICD Code: E86.0 - Dehydration Status: Acute (2) Right low back pain ICD Code: M54.5 - Low back pain Status: Acute (3) Headache ICD Code: R51 - Headache Status: Acute (4) Hypokalemia ICD Code: E87.6 - Hypokalemia Status: Acute (5) Hyponatremia ICD Code: E87.1 - Hypo-osmolality and hyponatremia Status: Acute (6) UTI (urinary tract infection) ICD Code: N39.0 - Urinary tract infection, site not specified Status: Acute (7) Acute kidney injury ICD Code: N17.9 - Acute kidney failure, unspecified Status: Acute (8) Electrolyte imbalance ICD Code: E87.8 - Other disorders of electrolyte and fluid balance, not elsewhere classified Assessment and Plan Assessment Is a 56-year-old female that presented with hypotension and hypokalemia and hyponatremia, initially with hypotension, now resolved. Admit to ICU. Plan by systems: Neurologic: Syncope Chronic back pain Neuro checks per ICU protocol Avoid long-acting sedative medication Patient previously on tramadol and Motrin 800 mg , baclofen home meds will hold for now We will avoid acetaminophen secondary to hepatomegaly, will avoid ketorolac secondary to elevated creatinine CT brain: no acute process Respiratory: Maintain O2 sat greater than 92% Currently on room air O2 saturation 100% Incentive spirometry Duo nebs every 4 hours for wheezing as needed Cardiovascular: Hypotension History of hypertension Maintain MAP greater than 65 Continue IV fluids Initial troponin <0.02 Renal: Possible UTI OMAR- resolving Monitor renal function, I/O's, electrolytes replacement per protocol. Renal function is improving with Cr: 1.[address] abd/pelvis: . Two small punctate 2 mm nonobstructing calyceal calculi in the inferior pole of the left kidney. No evidence for obstructive uropathy. hepatic steatosis. No evidence for bowel obstruction. FEN/GI: Fatty liver Dehydration Nausea Elevated liver enzymes Hypoalbuminemia Continue IV fluids normal saline with 20 of KCL@75ml/hr Replete electrolytes per ICU protocol. Will need K, Mag, Phos replacement today Zofran for nausea Clear liquid diet hepatitis panel: Negative Obtain gallbladder ultrasound 05/25 albumin 3.3 Heme/ID: Leukocytosis Monitor CBC Provide TMP-SMX x 3 days for possible UTI-we will de-escalate upon culture results Follow-up blood and urine culture Endocrine: Hypothyroidism ? TSH: 6.2, FT3: 1.[address] Place on Synthroid 25mcg daily -- SSI Prophylaxis: GI Prophylaxis Protonix DVT Prophylaxis -- SCDs Heparin SQ BID Lines: Peripheral IVs 2. Level 2 admission Problem Qualifiers (1) UTI (urinary tract infection): Qualified Codes: N39.0 - Urinary tract infection, site not specified; R31.9 - Hematuria, unspecified Ramakrishna Guillen MD May 26, 2017 07:08
[2017-05-26] MEDS: DOCUSATE SODIUM 50 MG/SENNA 8.6 MG TAB PO SCH ×2 (09:00→20:38)
--- NOTE | 2017-05-26 09:00 | RADRPT ---
EXAM DATE/TIME: 05/26/2017 08:05 [facility] COMPARISON: CT ABDOMEN & PELVIS W/O CONTRAST, May 25, 2017, 13:35. INDICATIONS : Nausea and vomiting. MEDICAL HISTORY : Hypertension. Thyroid disease. SURGICAL HISTORY : Tonsillectomy. ENCOUNTER: Subsequent ACUITY: 2 days PAIN SCORE: 0/10 LOCATION: Left upper quadrant MEASUREMENTS: LIVER: 20.0 cm length COMMON DUCT: 8 mm RIGHT KIDNEY: 11.1 x 5.5 x 6.2 cm FINDINGS: LIVER: Enlarged with diffusely increased echogenicity consistent with hepatic steatosis as demonstrated on C T. COMMON DUCT: No intraluminal mass or stone visualized. GALLBLADDER: Contains no stones, demonstrates no wall thickening or pericholecystic fluid. PANCREAS: The visualized portions are within normal limits. RIGHT KIDNEY: No evidence of hydronephrosis, stone, or mass. CONCLUSION: 1. Mildly prominent common bile duct measuring up to 8 mm (normal <=6 mm) without evidence for focal intraluminal abnormality on ultrasound. No associated intrahepatic ductal dilatation. Findings are so mewhat nonspecific but may reflect sphincter dysfunction versus partial distal CBD obstruction. Furth er evaluation may be performed with ERCP or MRCP as clinically warranted. 2. Normal appearance of the gallbladder. No cholelithiasis or sonographic evidence for acute cholecys titis. 3. Hepatic steatosis. Yoshi Barnes MD on May 26, 2017 at 8:47 Board Certified Radiologist. This report was verified electronically.
[2017-05-26] MEDS ORDERED: PNEUMOCOCCAL POLYVALENT INJ 25 MCG/0.5 ML SYR IM ONE (10:00)
[2017-05-26] MEDS: PANTOPRAZOLE SODIUM 40 MG VIAL IV PUSH SCH (10:07)
[2017-05-26] MEDS: SODIUM CHLORIDE 0.9% FLUSH 10 ML FLUSH IV FLUSH SCH ×2 (10:07→20:37)
[2017-05-26] MEDS: HEPARIN SODIUM - SQ 10,000 UNITS/ML VIAL SQ SCH ×2 (10:08→20:37)
[2017-05-26] MEDS: SULFAMETHOXAZOLE-TRIMETHOPRIM DS 800-160 MG TAB PO SCH ×2 (10:12→20:38)
[2017-05-26] MEDS: LEVOTHYROXINE SODIUM 25 MCG TAB PO SCH (10:20)
[2017-05-26 15:57] LABS: CHLORIDE 105 MEQ/L (98-107); SODIUM (NA) 136 MEQ/L (136-145)
[2017-05-26 16:00] LABS: CALCIUM 7.8 MG/DL (8.5-10.1)
[2017-05-26 16:01] LABS: ALBUMIN 2.6 GM/DL (3.4-5.0); BICARBONATE 19.1 MEQ/L (21.0-32.0)
[2017-05-26 16:13] LABS: ALKALINE PHOSPHATASE 94 U/L (45-117); ALT (GPT) 44 U/L (10-53); AST (GOT) 108 U/L (15-37); BLOOD UREA NITROGEN 25 MG/DL (7-18); GLOMERULAR FILTRATION RATE 31 ML/MIN (>89); GLUCOSE,RANDOM 95 MG/DL (74-106); PHOSPHORUS 0.6 MG/DL (2.5-4.9); TOTAL BILIRUBIN ADULT 0.9 MG/DL (0.2-1.0)
[2017-05-27] VITALS (21 sets, daily range): BP systolic 99–125; BP diastolic 60–82; PULSE 56–89; RESP 14–32; TEMP 98.1–98.7; O2SAT 99
[2017-05-27] MEDS: CHLORHEXIDINE GLUCONATE 2 % 1 PACK (2 CLOTHS) TOP SCH (04:00)
[2017-05-27] MEDS: LEVOTHYROXINE SODIUM 25 MCG TAB PO SCH (04:49)
[2017-05-27 06:34] LABS: AUTOMATED NEUTROPHIL # 4.1 TH/MM3 (1.8-7.7); BASOPHIL % 0.7 % (0.0-2.0); EOSINOPHIL % 0.2 % (0.0-4.0); HEMOGLOBIN 9.1 GM/DL (11.6-15.3); LYMPH % 19.2 % (9.0-44.0); LYMPHOCYTE # 1.1 TH/MM3 (1.0-4.8); MEAN CELL VOLUME 103.5 FL (80.0-100.0); MEAN CORPUSCULAR HEMOGLOBIN 34.9 PG (27.0-34.0); MEAN CORPUSCULAR HGB CONC 33.7 % (32.0-36.0); MEAN PLATELET VOLUME 7.7 FL (7.0-11.0); MONO % 11.2 % (0.0-8.0); MONOCYTE # 0.7 TH/MM3 (0-0.9); NEUT % 68.7 % (16.0-70.0); PLATELET COUNT 250 TH/MM3 (150-450); RED BLOOD COUNT 2.61 MIL/MM3 (4.00-5.30); RED CELL DISTRIBUTION WIDTH 15.1 % (11.6-17.2); WHITE BLOOD COUNT 5.9 TH/MM3 (4.0-11.0)
[2017-05-27 06:57] LABS: ALBUMIN 2.4 GM/DL (3.4-5.0); CALCIUM 7.3 MG/DL (8.5-10.1); CALCIUM-PROTEIN CORRECTED 7.9 MG/DL (8.5-10.1); CREATININE 1.4 MG/DL (0.50-1.00); MAGNESIUM 1.4 MG/DL (1.5-2.5); PHOSPHORUS 1.8 MG/DL (2.5-4.9); TOTAL BILIRUBIN ADULT 0.9 MG/DL (0.2-1.0); TOTAL PROTEIN 5.9 GM/DL (6.4-8.2)
[2017-05-27] MEDS: SODIUM CHLORIDE 0.9% FLUSH 10 ML FLUSH IV FLUSH SCH ×2 (09:00→20:53)
--- NOTE | 2017-05-27 09:09 | HHI.CCPN ---
Subjective Remarks/Hospital Course This is a 56-year-old female that presented to the [facility] emergency department with complaints of dizziness/lightheadedness, generalized weakness, nausea, vomiting, diarrhea, low back/flank pain/mid scapular pain. Patient reports that the symptoms of dizziness/lightheadedness started yesterday and became progressively worse. Right now she has right flank pain and right lower pelvis that radiates to her left lower back that she describes as an ache. No urinary or bowel incontinence or retention. No dysuria or hematuria. No fevers or chills. She denies illicit drug use. She states she has not had any alcohol in a while, however reported to me she had approximately had a alcoholic binge 4-5 days ago She has had a few episodes of vomiting and diarrhea over the last couple of days, no melena or hematochezia. Emesis is clear. She has had little to eat or drink over the last 2 days of fever of vomiting. The patient's medical history significant for chronic back pain which she takes baclofen, and Motrin 800 mg. The patient also has a history of hypertension and takes Lisinopril last dose reportedly 2 days ago. Critical care medicine is consulted for patient's low blood pressure. Upon my evaluation in the ED patient's blood pressure systolic 109-115. Patient alert and oriented 3 responding to questions appropriately, with heart rate in the 70s. Patient currently drinking water and Gatorade, and occasionally having bouts of nausea. 05/26 No events overnight. On room air oxygen. Afebrile. Awake and alert. Subjective: 05/27 Afebrile. Urine culture with gram-negative rods. Normotensive. Tried to eat breakfast but it was unappetizing. Objective Vital Signs Date Time Temp Pulse Resp B/P (MAP) Pulse Ox O2 Delivery O2 Flow Rate FiO2 05/27/17 08:02 68 21 125/80 (95) 05/27/17 04:02 98.5 05/26/17 20:02 100 21 05/25/17 17:51 Room Air Intake and Output 05/27/17 05/27/17 05/28/17 08:00 16:00 00:00 Intake Total 713 ml Output Total 2000 ml Balance -1287 ml Result Diagram: 05/27/17 0623 05/27/17 0623 Other Results Microbiology Date/Time Source Procedure Growth Status 4/19/18 22:50 Stool Stool Stool Occult Blood ([facility]) - Final HEMOCCULT NEGATIVE Complete Imaging Last Impressions Chest X-Ray 05/25/17 1102 Signed Impressions: Service Date/Time: May 11:08 - CONCLUSION: No acute cardiopulmonary process. Damon Cardona MD Head CT 05/25/17 0000 Signed Impressions: Service Date/Time: Friday, May 26, 2017 02:25 - CONCLUSION: No acute disease. Diego El Jr., MD Abdomen/Pelvis CT 05/25/17 0000 Signed Impressions: Service Date/Time: May 13:35 - CONCLUSION: 1. Two small punctate 2 mm nonobstructing calyceal calculi in the inferior pole of the left kidney. No evidence for obstructive uropathy. 2. Profound hepatic steatosis. 3. Normal appendix. No evidence for bowel obstruction. Yoshi Barnes MD Objective Remarks GENERAL: Well-developed well-nourished female sitting up in bed. SKIN: Warm and dry. HEAD: Atraumatic. Normocephalic. EYES: Pupils equal and round. 2 mm and brisk. EOMI. no scleral icterus. No injection or drainage. ENT: No nasal bleeding or discharge. Mucous membranes pink and moist. NECK: Trachea midline. No JVD. CARDIOVASCULAR: Normal rate, regular rhythm. RESPIRATORY: No accessory muscle use. Clear to auscultation. Breath sounds equal bilaterally. GASTROINTESTINAL: Abdomen soft, nondistended. Suprapubic tenderness on deep palpation. No RUQ tenderness. No guarding. No rebound tenderness. Bowel sounds are present MUSCULOSKELETAL: Extremities without clubbing, cyanosis, or edema. No obvious deformities. NEUROLOGICAL: GCS 15 awake and alert. No gross focal/sensory deficits. Follows commands in all 4 extremities. Motor strength 5/5 bilateral upper and lower extremities A/P Problem List: (1) Dehydration ICD Code: E86.0 - Dehydration Status: Acute (2) Right low back pain ICD Code: M54.5 - Low back pain Status: Acute (3) Headache ICD Code: R51 - Headache Status: Acute (4) Hypokalemia ICD Code: E87.6 - Hypokalemia Status: Acute (5) Hyponatremia ICD Code: E87.1 - Hypo-osmolality and hyponatremia Status: Acute (6) UTI (urinary tract infection) ICD Code: N39.0 - Urinary tract infection, site not specified Status: Acute (7) Acute kidney injury ICD Code: N17.9 - Acute kidney failure, unspecified Status: Acute (8) Electrolyte imbalance ICD Code: E87.8 - Other disorders of electrolyte and fluid balance, not elsewhere classified Assessment and Plan Assessment Is a 56-year-old female that presented with hypotension and hypokalemia and hyponatremia, initially with hypotension, now resolved. Admit to ICU. Plan by systems: Neurologic: Syncope Chronic back pain Neuro checks per ICU protocol Avoid long-acting sedative medication Patient previously on tramadol and Motrin 800 mg , baclofen home meds will hold for now We will avoid acetaminophen secondary to hepatomegaly, will avoid ketorolac secondary to elevated creatinine CT brain: no acute process Respiratory: ON RA Incentive spirometry Duo nebs every 4 hours for wheezing as needed Cardiovascular: Hypotension, resolved History of hypertension Maintain MAP greater than 65 Initial troponin <0.02 Lisinopril remains on hold due to hypotension and acute kidney injury. FEN/Renal: UTI OMAR- resolving Hypophosphatemia Hypomagnesemia Monitor renal function, I/O's, electrolytes replacement per protocol. Renal function improving, Continue 0.9 NACL with 20 MEQ KCL at 75 mg/h. Replace magnesium and phos per electrolyte protocol. CT abd/pelvis: . Two small punctate 2 mm nonobstructing calyceal calculi in the inferior pole of the left kidney. No evidence for obstructive uropathy. hepatic steatosis. No evidence for bowel obstruction. FEN/GI: Hepatic steatosis. Dehydration Nausea Elevated liver enzymes Hypoalbuminemia Zofran for nausea Patient requests change to regular diet. hepatitis panel: Negative GB ultrasound with dilated CBD. No cholelithiasis or cholecystitis. D/w patient. Ordered MRCP. 05/25 albumin 3.3 Heme/ID: Leukocytosis Monitor CBC On TMP-SMX for possible UTI. Will stop in view of OMAR and cover with rocephin pending further culture results. Follow-up blood and urine culture Endocrine: Hypothyroidism TSH: 6.2, FT3: 1.68. Check free T4 Has been started on Synthroid 25mcg daily -- SSI Prophylaxis: GI Prophylaxis Protonix po DVT Prophylaxis -- SCDs Heparin SQ BID Lines: Peripheral IVs 2. Out of bed today. PT consult. Transfer to Floor. Hospitalist consult Level 2 followup Problem Qualifiers (1) UTI (urinary tract infection): Qualified Codes: N39.0 - Urinary tract infection, site not specified; R31.9 - Hematuria, unspecified Kitty Dawkins MD May 27, 2017 09:09
--- NOTE | 2017-05-27 09:25 | EKG ---
Date Performed: 05/25/2017 Time Performed: 11:24:21 PTAGE: 56 years EKG: Sinus rhythm NORMAL ECG NO PREVIOUS TRACING DOCTOR: Madonna Galan Interpretating Date/Time 05/27/2017 09:18:34
[2017-05-27] MEDS: HEPARIN SODIUM - SQ 10,000 UNITS/ML VIAL SQ SCH ×2 (10:03→20:53)
[2017-05-27] MEDS: cefTRIAXone INJ 1,000 MG in SODIUM CHLORIDE 0.9% INJ 100 ML IV SCH (10:04)
[2017-05-27] MEDS: NS + KCL 20 MEQ INJ 1,000 ML IV SCH ×2 (10:05→11:15)
[2017-05-27] MEDS: DOCUSATE SODIUM 50 MG/SENNA 8.6 MG TAB PO SCH ×2 (10:05→20:53)
--- NOTE | 2017-05-27 13:51 | RADRPT ---
EXAM DATE/TIME: 05/27/2017 13:19 [facility] COMPARISON: US ABDOMEN - GALLBLADDER, May 26, 2017, 8:05. INDICATIONS : Obstruction. MEDICAL HISTORY : Hypertension. SURGICAL HISTORY : Breast augmentation. ENCOUNTER: Initial ACUITY: 1 day PAIN SCORE: 5/10 LOCATION: Abdomen. TECHNIQUE: Multiplanar, multisequence magnetic resonance imaging of the abdomen was performed. High-resolution 3D dataset was utilized to reconstruct maximum-intensity projection (MIP) images. FINDINGS: INTRAHEPATIC BILE DUCTS: Within normal limits. No significant anatomical variant is present. EXTRAHEPATIC BILE DUCTS: The common bile duct measures 9-10 mm. No stone or filling defect is identified but the duct does ter minate approximately 10 mm from the second portion of the duodenum. This may simply represent a promi nent sphincter although an intraductal mass cannot be completely excluded. GALLBLADDER: No stones, wall thickening, or pericholecystic fluid. LIVER: Normal size and signal intensity. No concerning liver lesion is identified on this non-contrast exam. PANCREAS: The main pancreatic duct is normal in size. There is no significant anatomical variant. Signal inte nsity is within normal limits. No mass is visualized on this non-contrast exam but the pancreas is d iffusely atrophic. OTHER: The remaining visualized structures demonstrate no acute abnormality on this non-contrast exam. CONCLUSION: 1. CBD is prominent at 9-10 mm but no intrahepatic biliary duct dilatation. Gallbladder is mildly dis tended. 2. I do not see an obvious filling defect to suggest stones. The duct ends abruptly approximately 10 mm from the duodenum. While this may represent an elongated sphincter, an intra-ductal mass lesion c annot be completely excluded. ERCP may be useful for further characterization of this region. 3. Atrophic changes of the pancreas. Pancreas is otherwise intact Damon Cardona MD on May 27, 2017 at 13:43 Board Certified Radiologist. This report was verified electronically.
[2017-05-28] VITALS: BP 119/80; PULSE 68; RESP 18; TEMP 98.7; O2SAT 99
[2017-05-28] MEDS: CHLORHEXIDINE GLUCONATE 2 % 1 PACK (2 CLOTHS) TOP SCH ×2 (03:27→20:20)
[2017-05-28 04:00] VITALS: BP 114/73; PULSE 67; RESP 16; TEMP 98.5; O2SAT 96
[2017-05-28] MEDS: LEVOTHYROXINE SODIUM 25 MCG TAB PO SCH (05:39)
[2017-05-28] MEDS: PANTOPRAZOLE SOD 40 MG DELAYED RELEASE TAB PO SCH (07:53)
[2017-05-28] MEDS: SODIUM CHLORIDE 0.9% FLUSH 10 ML FLUSH IV FLUSH SCH ×2 (07:55→20:19)
[2017-05-28] MEDS: DOCUSATE SODIUM 50 MG/SENNA 8.6 MG TAB PO SCH ×2 (07:55→21:00)
[2017-05-28] MEDS: HEPARIN SODIUM - SQ 10,000 UNITS/ML VIAL SQ SCH ×2 (07:55→21:25)
[2017-05-28 08:02] VITALS: BP 140/92; PULSE 65; RESP 16; TEMP 97.9; O2SAT 100
[2017-05-28 08:26] LABS: AUTOMATED NEUTROPHIL # 4.5 TH/MM3 (1.8-7.7); BASOPHIL # 0.1 TH/MM3 (0-0.2); BASOPHIL % 1.8 % (0.0-2.0); EOSINOPHIL % 0.2 % (0.0-4.0); HEMATOCRIT 31.2 % (35.0-46.0); HEMOGLOBIN 10.5 GM/DL (11.6-15.3); LYMPH % 17.3 % (9.0-44.0); LYMPHOCYTE # 1.1 TH/MM3 (1.0-4.8); MEAN CELL VOLUME 104.6 FL (80.0-100.0); MEAN CORPUSCULAR HEMOGLOBIN 35.1 PG (27.0-34.0); MEAN CORPUSCULAR HGB CONC 33.5 % (32.0-36.0); MEAN PLATELET VOLUME 8.5 FL (7.0-11.0); MONO % 10.2 % (0.0-8.0); MONOCYTE # 0.6 TH/MM3 (0-0.9); NEUT % 70.5 % (16.0-70.0); PLATELET COUNT 273 TH/MM3 (150-450); RED BLOOD COUNT 2.98 MIL/MM3 (4.00-5.30); RED CELL DISTRIBUTION WIDTH 15.5 % (11.6-17.2); WHITE BLOOD COUNT 6.3 TH/MM3 (4.0-11.0)
--- NOTE | 2017-05-28 08:49 | HHI.PR ---
Subjective Remarks Follow-up dizziness/lightheadedness, generalized weakness, nausea, vomiting, diarrhea, low back/flank pain/mid scapular pain. Patient seen and examined, lying in bed comfortably in no apparent distress. Eating breakfast with no abdominal pain, nausea or vomiting. Patient is to transfer to the main today to undergo ERCP tomorrow and be seen by gastroenterology. N.p.o. after midnight. Vital signs are stable. Afebrile. Urine culture growing gram- negative rods. OMAR improving. Low mag and phos today. Objective Vitals Vital Signs Date Time Temp Pulse Resp B/P (MAP) Pulse Ox O2 Delivery O2 Flow Rate FiO2 05/28/17 08:02 97.9 65 16 140/92 (108) 100 05/28/17 04:00 98.5 67 16 114/73 (87) 96 05/28/17 00:00 98.7 68 18 119/80 (93) 99 05/27/17 20:00 98.7 73 18 122/82 (95) 99 05/27/17 19:30 99 21 05/27/17 16:00 82 23 111/69 (83) 05/27/17 13:41 122/81 (95) 05/27/17 12:00 89 05/27/17 10:00 72 I/O 05/27/17 05/27/17 05/27/17 05/28/17 05/28/17 05/28/17 07:00 15:00 23:00 07:00 15:00 23:00 Intake Total 713 ml 480 ml 360 ml Output Total 2000 ml Balance -1287 ml 480 ml 360 ml Intake Oral 480 ml 360 ml IV Total 713 ml Output Urine Total 2000 ml # Voids 3 5 # Bowel Movements 0 Result Diagram: 05/28/17 0741 05/28/17 0741 Imaging Last Impressions Cholangiopancreatography MRI 05/27/17 0000 Signed Impressions: Service Date/Time: Saturday, May 27, 2017 13:19 - CONCLUSION: 1. CBD is prominent at 9-10 mm but no intrahepatic biliary duct dilatation. Gallbladder is mildly distended. 2. I do not see an obvious filling defect to suggest stones. The duct ends abruptly approximately 10 mm from the duodenum. While this may represent an elongated sphincter, an intra-ductal mass lesion cannot be completely excluded. ERCP may be useful for further characterization of this region. 3. Atrophic changes of the pancreas. Pancreas is otherwise intact Damon Cardona MD Gall Bladder Ultrasound 05/26/17 0000 Signed Impressions: Service Date/Time: Friday, May 26, 2017 08:05 - CONCLUSION: 1. Mildly prominent common bile duct measuring up to 8 mm (normal <=6 mm) without evidence for focal intraluminal abnormality on ultrasound. No associated intrahepatic ductal dilatation. Findings are somewhat nonspecific but may reflect sphincter dysfunction versus partial distal CBD obstruction. Further evaluation may be performed with ERCP or MRCP as clinically warranted. 2. Normal appearance of the gallbladder. No cholelithiasis or sonographic evidence for acute cholecystitis. 3. Hepatic steatosis. Yoshi Barnes MD Chest X-Ray 05/25/17 1102 Signed Impressions: Service Date/Time: May 11:08 - CONCLUSION: No acute cardiopulmonary process. Damon Cardona MD Head CT 05/25/17 0000 Signed Impressions: Service Date/Time: Friday, May 26, 2017 02:25 - CONCLUSION: No acute disease. Diego El Jr., MD Abdomen/Pelvis CT 05/25/17 0000 Signed Impressions: Service Date/Time: May 13:35 - CONCLUSION: 1. Two small punctate 2 mm nonobstructing calyceal calculi in the inferior pole of the left kidney. No evidence for obstructive uropathy. 2. Profound hepatic steatosis. 3. Normal appendix. No evidence for bowel obstruction. Yoshi Barnes MD Objective Remarks GENERAL: Well-developed, well-nourished patient in [facility]. SKIN: Warm and dry. No rash. HEAD: Normocephalic. Atraumatic. EYES: Pupils equal and round. No scleral icterus. No injection or drainage. ENT: No nasal bleeding or discharge. Mucous membranes pink and moist. NECK: Supple. Trachea midline. CARDIOVASCULAR: Regular rate and rhythm. S1, S2 noted. No murmur appreciated. RESPIRATORY: No accessory muscle use. Clear to auscultation. Breath sounds equal bilaterally. GASTROINTESTINAL: Abdomen soft, non-tender, nondistended. Normoactive bowel sounds x4. MUSCULOSKELETAL: No obvious deformities. Extremities without clubbing, cyanosis , or edema. NEUROLOGICAL: Awake and alert. No obvious cranial nerve deficits. Motor grossly within normal limits. 5/5 muscle strength in bilateral upper and lower extremities. Normal speech. PSYCHIATRIC: Appropriate mood and affect; insight and judgment normal. A/P Problem List: (1) Dehydration ICD Code: E86.0 - Dehydration Status: Acute (2) Right low back pain ICD Code: M54.5 - Low back pain Status: Acute (3) Headache ICD Code: R51 - Headache Status: Acute (4) Hypokalemia ICD Code: E87.6 - Hypokalemia Status: Acute (5) Hyponatremia ICD Code: E87.1 - Hypo-osmolality and hyponatremia Status: Acute (6) UTI (urinary tract infection) ICD Code: N39.0 - Urinary tract infection, site not specified Status: Acute (7) Acute kidney injury ICD Code: N17.9 - Acute kidney failure, unspecified Status: Acute (8) Electrolyte imbalance ICD Code: E87.8 - Other disorders of electrolyte and fluid balance, not elsewhere classified Assessment and Plan This is a 56-year-old female that presented with hypotension and hypokalemia and hyponatremia, initially with hypotension, now resolved. Hepatic steatosis Dehydration, resolved. Nausea, resolved. Transaminitis Hypoalbuminemia - CT abdomen/pelvis showing two small punctate 2 mm nonobstructing calyceal calculi in the inferior pole of the left kidney. No evidence for obstructive uropathy. hepatic steatosis. No evidence for bowel obstruction. - Patient had MRCP, showing common bile duct dilation, gallbladder is mildly distended. No cholelithiasis or cholecystitis. Patient will undergo an ERCP at the main hospital, gastroenterology consulted and appreciate input - recommendations. Further hospitalization and treatment plan will depend on ERCP results. - Hepatitis panel checked, negative. - Zofran for nausea - Albumin level 2.4. Urinary tract infection Acute kidney injury suspect secondary to above Hypophosphatemia Hypomagnesemia - Urine culture growing E. coli, continue ceftriaxone IV. No leukocytosis at this time. Monitor CBC. Blood cultures negative to date. - Monitor BMP. Creatinine 0.97 today. Monitor intake and output. Continue IVF. - Replace electrolytes today. Hypotension, resolved History of hypertension - Maintain MAP greater than 65 - Lisinopril remains on hold due to hypotension and acute kidney injury. Hypothyroidism: TSH: 6.2, FT3: 1.68. Free T4 WNL. Has been started on Synthroid 25mcg daily. Chronic back pain - Patient previously on tramadol and Motrin 800 mg , baclofen home meds will hold for now - We will avoid acetaminophen secondary to hepatomegaly. GI prophylaxis: Protonix p.o. DVT prophylaxis: SCDs. Heparin. Problem Qualifiers (1) UTI (urinary tract infection): Qualified Codes: N39.0 - Urinary tract infection, site not specified; R31.9 - Hematuria, unspecified Carrie Bruner May 28, 2017 08:49
[2017-05-28] MEDS: cefTRIAXone INJ 1,000 MG in SODIUM CHLORIDE 0.9% INJ 100 ML IV SCH (08:50)
[2017-05-28 08:53] LABS: BICARBONATE 16.5 MEQ/L (21.0-32.0); CALCIUM 7.2 MG/DL (8.5-10.1); CREATININE 0.97 MG/DL (0.50-1.00); MAGNESIUM 1.1 MG/DL (1.5-2.5); PHOSPHORUS 1.5 MG/DL (2.5-4.9)
[2017-05-28 09:07] LABS: CALCIUM-PROTEIN CORRECTED 7.6 MG/DL (8.5-10.1); TOTAL PROTEIN 6.4 GM/DL (6.4-8.2)
[2017-05-28] MEDS: MAGNESIUM SULFATE 1 GM PREMIX 100 ML IV SCH ×2 (09:26→10:32)
[2017-05-28] MEDS ORDERED: SODIUM PHOSPHATE INJ 30 MMOL in SODIUM CHLOR 0.9% 250 ML INJ 250 ML IV ONE (11:00)
[2017-05-28 12:00] VITALS: BP 120/75; PULSE 66; RESP 20; TEMP 97.9; O2SAT 100
[2017-05-28 16:00] VITALS: BP 128/84; PULSE 63; RESP 20; TEMP 98.1; O2SAT 100
[2017-05-28 20:00] VITALS: BP 126/79; PULSE 84; RESP 18; TEMP 97.9; O2SAT 98
[2017-05-29] VITALS: BP 113/73; PULSE 74; RESP 17; TEMP 97.4; O2SAT 100
[2017-05-29] MEDS ORDERED: LACTATED RINGER'S 1000 ML IV PRN (02:00)
[2017-05-29] MEDS ORDERED: SODIUM CHLORID 0.9% 500 ML IV PRN (02:00)
[2017-05-29] MEDS: LEVOTHYROXINE SODIUM 25 MCG TAB PO SCH (05:32)
[2017-05-29 08:00] VITALS: BP 111/75; PULSE 72; RESP 16; TEMP 98.3; O2SAT 97
[2017-05-29] MEDS: HEPARIN SODIUM - SQ 10,000 UNITS/ML VIAL SQ SCH ×2 (08:00→20:26)
[2017-05-29] MEDS: DOCUSATE SODIUM 50 MG/SENNA 8.6 MG TAB PO SCH ×2 (09:00→20:26)
[2017-05-29] MEDS: PANTOPRAZOLE SOD 40 MG DELAYED RELEASE TAB PO SCH (09:47)
[2017-05-29] MEDS: cefTRIAXone INJ 1,000 MG in SODIUM CHLORIDE 0.9% INJ 100 ML IV SCH (09:48)
[2017-05-29] MEDS: SODIUM CHLORIDE 0.9% FLUSH 10 ML FLUSH IV FLUSH SCH ×2 (09:48→20:26)
[2017-05-29] MEDS ORDERED: PROPOFOL 200 MG/20 ML AMP IV ONE (12:00)
[2017-05-29] MEDS ORDERED: LIDOCAINE HCL 1% PF 5 ML SYRINGE OTHER ONE (12:00)
[2017-05-29] MEDS ORDERED: MIDAZOLAM HCL 2 MG/2 ML VIAL ONE (14:42)
--- NOTE | 2017-05-29 14:44 | PD.PROCEDR ---
GI Procedure PROCEDURE PERFORMED EGD with biopsy followed by endoscopic ultrasound INDICATION FOR PROCEDURE Abnormal imaging with complaints of nausea and vomiting PROCEDURE: The procedure, risks and benefits were discussed with Patient/POA and informed consent was obtained. Anesthesia sedated Patient with Diprivan. Patient was placed in the left lateral decubitus position. EGD: The Pentax videoscope was introduced through the oropharynx and advanced to the second portion of the duodenum under direct visualization. Retroflexion was performed in the stomach. FINDINGS: The esophagus this appeared to be unremarkable and within normal limits The stomach there was some patchy erythema in the antrum but no ulcerations no erosions no blood or bleeding the rest of the stomach was unremarkable antral biopsies were taken for further evaluation The duodenum this was normal EUS: The Pentax videoscope was introduced through the oropharynx and advanced to the second portion of the duodenum . FINDINGS: The pancreatic parenchyma appeared to be within normal limits it was slightly lobular throughout the pancreatic body but with normal pancreatic duct from head to tail with no filling defects The ampulla appeared to be unremarkable and within normal limits The common bile duct appeared to be unremarkable with a gradual taper towards the ampulla and may be a slight dilation in the more proximal portions of the no filling defects no sudden change of caliber no abnormal echo findings along its path The gallbladder had a few small less than 3 mm polyps otherwise it was unremarkable No lymphadenopathy was seen or noted ESTIMATED BLOOD LOSS: None SPECIMENS REMOVED: Antral biopsies COMPLICATIONS: None IMPRESSION: Mild gastritis Gallbladder polyps Otherwise unremarkable endoscopic ultrasound PLAN: Await biopsies Advance diet Recommend abdominal ultrasound in 1 year Follow-up with GI post discharge Check on tumor markers for verification Dann Chandra MD May 29, 2017 14:44
--- NOTE | 2017-05-29 15:36 | HHI.PR ---
Subjective Remarks Follow-up hepatic steatosis/dehydration/hypotension May 29, 2017-patient seen and examined, denies any abdominal pain, chest pain or shortness of breath. Plan for ERCP today Objective Vitals Vital Signs Date Time Temp Pulse Resp B/P (MAP) Pulse Ox O2 Delivery O2 Flow Rate FiO2 05/29/17 14:49 97.2 73 16 142/86 (104) 99 05/29/17 08:00 98.3 72 16 111/75 (87) 97 05/29/17 00:00 97.4 74 17 113/73 (86) 100 05/28/17 20:00 97.9 84 18 126/79 (95) 98 05/28/17 16:00 98.1 63 20 128/84 (99) 100 I/O 05/28/17 05/28/17 05/28/17 05/29/17 05/29/17 05/29/17 07:00 15:00 23:00 07:00 15:00 23:00 Intake Total 360 ml 600 ml 1100 ml 700 ml Output Total 0 ml Balance 360 ml 600 ml 1100 ml 700 ml Intake Oral 360 ml 840 ml IV Total 600 ml 260 ml 700 ml Estimated Blood Loss 0 ml # Voids 5 4 1 # Bowel Movements 0 1 Result Diagram: 05/28/17 0741 05/28/17 0741 Imaging Last Impressions Cholangiopancreatography MRI 05/27/17 0000 Signed Impressions: Service Date/Time: Saturday, May 27, 2017 13:19 - CONCLUSION: 1. CBD is prominent at 9-10 mm but no intrahepatic biliary duct dilatation. Gallbladder is mildly distended. 2. I do not see an obvious filling defect to suggest stones. The duct ends abruptly approximately 10 mm from the duodenum. While this may represent an elongated sphincter, an intra-ductal mass lesion cannot be completely excluded. ERCP may be useful for further characterization of this region. 3. Atrophic changes of the pancreas. Pancreas is otherwise intact Damon Cardona MD Gall Bladder Ultrasound 05/26/17 0000 Signed Impressions: Service Date/Time: Friday, May 26, 2017 08:05 - CONCLUSION: 1. Mildly prominent common bile duct measuring up to 8 mm (normal <=6 mm) without evidence for focal intraluminal abnormality on ultrasound. No associated intrahepatic ductal dilatation. Findings are somewhat nonspecific but may reflect sphincter dysfunction versus partial distal CBD obstruction. Further evaluation may be performed with ERCP or MRCP as clinically warranted. 2. Normal appearance of the gallbladder. No cholelithiasis or sonographic evidence for acute cholecystitis. 3. Hepatic steatosis. Yoshi Barnes MD Chest X-Ray 05/25/17 1102 Signed Impressions: Service Date/Time: May 11:08 - CONCLUSION: No acute cardiopulmonary process. Damon Cardona MD Head CT 05/25/17 0000 Signed Impressions: Service Date/Time: Friday, May 26, 2017 02:25 - CONCLUSION: No acute disease. Diego El Jr., MD Abdomen/Pelvis CT 05/25/17 0000 Signed Impressions: Service Date/Time: May 13:35 - CONCLUSION: 1. Two small punctate 2 mm nonobstructing calyceal calculi in the inferior pole of the left kidney. No evidence for obstructive uropathy. 2. Profound hepatic steatosis. 3. Normal appendix. No evidence for bowel obstruction. Yoshi Barnes MD Objective Remarks GENERAL: NAD SKIN: Warm and dry. HEAD: Normocephalic. EYES: No scleral icterus. No injection or drainage. NECK: Supple, trachea midline. No JVD or lymphadenopathy. CARDIOVASCULAR: Regular rate and rhythm without murmurs, gallops, or rubs. RESPIRATORY: Breath sounds equal bilaterally. No accessory muscle use. GASTROINTESTINAL: Abdomen soft, non-tender, nondistended. MUSCULOSKELETAL: No cyanosis, or edema. BACK: Nontender without obvious deformity. No CVA tenderness. A/P Problem List: (1) Dehydration ICD Code: E86.0 - Dehydration Status: Acute (2) Right low back pain ICD Code: M54.5 - Low back pain Status: Acute (3) Headache ICD Code: R51 - Headache Status: Acute (4) Hypokalemia ICD Code: E87.6 - Hypokalemia Status: Acute (5) Hyponatremia ICD Code: E87.1 - Hypo-osmolality and hyponatremia Status: Acute (6) UTI (urinary tract infection) ICD Code: N39.0 - Urinary tract infection, site not specified Status: Acute (7) Acute kidney injury ICD Code: N17.9 - Acute kidney failure, unspecified Status: Acute (8) Electrolyte imbalance ICD Code: E87.8 - Other disorders of electrolyte and fluid balance, not elsewhere classified Assessment and Plan 56-year-old female with Hepatic steatosis Dehydration, resolved. Nausea, resolved. Transaminitis Hypoalbuminemia - CT abdomen/pelvis showing two small punctate 2 mm nonobstructing calyceal calculi in the inferior pole of the left kidney. No evidence for obstructive uropathy. hepatic steatosis. No evidence for bowel obstruction. - Patient had MRCP, -Appreciate input from GI and plan for ERCP today - Hepatitis panel checked, negative. Urinary tract infection Currently on Rocephin however will switch to Cipro 500 mg every 12 hours Acute kidney injury Resolved with IV fluid hydration Hypophosphatemia Hypomagnesemia -Give magnesium sulfate 1 g IV 1 now Hypotension, resolved History of hypertension - Maintain MAP greater than 65 - Lisinopril remains on hold due to hypotension and acute kidney injury. Hypothyroidism: TSH: 6.2, FT3: 1.68. Free T4 WNL. on Synthroid 25mcg daily. Chronic back pain - Patient previously on tramadol and Motrin 800 mg , baclofen on hold GI prophylaxis: Protonix p.o. DVT prophylaxis: SCDs. Heparin. Problem Qualifiers (1) UTI (urinary tract infection): Qualified Codes: N39.0 - Urinary tract infection, site not specified; R31.9 - Hematuria, unspecified Trevor Ramirez MD May 29, 2017 15:36
[2017-05-29] MEDS ORDERED: MAGNESIUM SULFATE 1 GM PREMIX 100 ML IV ONE (15:45)
[2017-05-29 16:00] VITALS: BP 129/81; PULSE 80; RESP 17; TEMP 97.8; O2SAT 100
[2017-05-29 17:17] LABS: CARCINOEMBRYONIC ANTIGEN 2.8 NG/ML (0.2-5.0)
[2017-05-29 20:00] VITALS: BP 120/78; PULSE 70; RESP 20; TEMP 98.4; O2SAT 100
[2017-05-29] MEDS: CIPROFLOXACIN 500 MG TAB PO SCH (20:26)
[2017-05-30] VITALS: BP 99/56; PULSE 69; RESP 18; TEMP 98.1; O2SAT 98
[2017-05-30] MEDS: CHLORHEXIDINE GLUCONATE 2 % 1 PACK (2 CLOTHS) TOP SCH (04:00)
[2017-05-30] MEDS: LEVOTHYROXINE SODIUM 25 MCG TAB PO SCH (05:50)
[2017-05-30 06:36] LABS: HEMOGLOBIN 9.1 GM/DL (11.6-15.3); MEAN CORPUSCULAR HEMOGLOBIN 36.6 PG (27.0-34.0); MEAN CORPUSCULAR HGB CONC 34.9 % (32.0-36.0); MEAN PLATELET VOLUME 8.4 FL (7.0-11.0); PLATELET COUNT 266 TH/MM3 (150-450); RED BLOOD COUNT 2.47 MIL/MM3 (4.00-5.30); RED CELL DISTRIBUTION WIDTH 15.4 % (11.6-17.2)
[2017-05-30 06:54] LABS: ALBUMIN 2.3 GM/DL (3.4-5.0); BICARBONATE 17.8 MEQ/L (21.0-32.0); CALCIUM 7.3 MG/DL (8.5-10.1); CREATININE 0.59 MG/DL (0.50-1.00); MAGNESIUM 1.3 MG/DL (1.5-2.5); TOTAL BILIRUBIN ADULT 1.2 MG/DL (0.2-1.0); TOTAL PROTEIN 5.8 GM/DL (6.4-8.2)
[2017-05-30 08:00] VITALS: BP 139/76; PULSE 69; RESP 18; TEMP 99; O2SAT 98
[2017-05-30] MEDS: HEPARIN SODIUM - SQ 10,000 UNITS/ML VIAL SQ SCH (08:34)
[2017-05-30] MEDS: SODIUM CHLORIDE 0.9% FLUSH 10 ML FLUSH IV FLUSH SCH (08:36)
[2017-05-30] MEDS: PANTOPRAZOLE SOD 40 MG DELAYED RELEASE TAB PO SCH (08:36)
[2017-05-30] MEDS: CIPROFLOXACIN 500 MG TAB PO SCH (08:36)
[2017-05-30] MEDS: DOCUSATE SODIUM 50 MG/SENNA 8.6 MG TAB PO SCH (08:44)
[2017-05-30] MEDS ORDERED: CIPR-9 PO (10:17)
--- NOTE | 2017-05-30 10:39 | HHI.PR ---
Subjective Remarks Follow-up hepatic steatosis/dehydration/hypotension May 29, 2017-patient seen and examined, denies any abdominal pain, chest pain or shortness of breath. Plan for ERCP today May 30, 2017-patient seen and examined, denies any abdominal pain vitals stable. States she is ready for discharge home. Objective Vitals Vital Signs Date Time Temp Pulse Resp B/P (MAP) Pulse Ox O2 Delivery O2 Flow Rate FiO2 05/30/17 08:00 99.0 69 18 139/76 (97) 98 05/30/17 00:00 98.1 69 18 99/56 (70) 98 05/29/17 20:00 98.4 70 20 120/78 (92) 100 05/29/17 16:00 97.8 80 17 129/81 (97) 100 05/29/17 14:49 97.2 73 16 142/86 (104) 99 I/O 05/29/17 05/29/17 05/29/17 05/30/17 05/30/17 05/30/17 07:00 15:00 23:00 07:00 15:00 23:00 Intake Total 700 ml 820 ml Output Total 0 ml 0 ml Balance 700 ml 820 ml 0 ml Intake Oral 720 ml IV Total 700 ml 100 ml Stool Total 0 ml Estimated Blood Loss 0 ml # Voids 1 10 5 Result Diagram: 05/30/17 0536 05/30/17 0536 Imaging Last Impressions Cholangiopancreatography MRI 05/27/17 0000 Signed Impressions: Service Date/Time: Saturday, May 27, 2017 13:19 - CONCLUSION: 1. CBD is prominent at 9-10 mm but no intrahepatic biliary duct dilatation. Gallbladder is mildly distended. 2. I do not see an obvious filling defect to suggest stones. The duct ends abruptly approximately 10 mm from the duodenum. While this may represent an elongated sphincter, an intra-ductal mass lesion cannot be completely excluded. ERCP may be useful for further characterization of this region. 3. Atrophic changes of the pancreas. Pancreas is otherwise intact Damon Cardona MD Gall Bladder Ultrasound 05/26/17 0000 Signed Impressions: Service Date/Time: Friday, May 26, 2017 08:05 - CONCLUSION: 1. Mildly prominent common bile duct measuring up to 8 mm (normal <=6 mm) without evidence for focal intraluminal abnormality on ultrasound. No associated intrahepatic ductal dilatation. Findings are somewhat nonspecific but may reflect sphincter dysfunction versus partial distal CBD obstruction. Further evaluation may be performed with ERCP or MRCP as clinically warranted. 2. Normal appearance of the gallbladder. No cholelithiasis or sonographic evidence for acute cholecystitis. 3. Hepatic steatosis. Yoshi Barnes MD Chest X-Ray 05/25/17 1102 Signed Impressions: Service Date/Time: May 11:08 - CONCLUSION: No acute cardiopulmonary process. Damon Cardona MD Head CT 05/25/17 0000 Signed Impressions: Service Date/Time: Friday, May 26, 2017 02:25 - CONCLUSION: No acute disease. Diego El Jr., MD Abdomen/Pelvis CT 05/25/17 0000 Signed Impressions: Service Date/Time: May 13:35 - CONCLUSION: 1. Two small punctate 2 mm nonobstructing calyceal calculi in the inferior pole of the left kidney. No evidence for obstructive uropathy. 2. Profound hepatic steatosis. 3. Normal appendix. No evidence for bowel obstruction. Yoshi Barnes MD Objective Remarks GENERAL: NAD SKIN: Warm and dry. HEAD: Normocephalic. EYES: No scleral icterus. No injection or drainage. NECK: Supple, trachea midline. No JVD or lymphadenopathy. CARDIOVASCULAR: Regular rate and rhythm without murmurs, gallops, or rubs. RESPIRATORY: Breath sounds equal bilaterally. No accessory muscle use. GASTROINTESTINAL: Abdomen soft, non-tender, nondistended. MUSCULOSKELETAL: No cyanosis, or edema. BACK: Nontender without obvious deformity. No CVA tenderness. Procedures None A/P Problem List: (1) Dehydration ICD Code: E86.0 - Dehydration Status: Acute (2) Right low back pain ICD Code: M54.5 - Low back pain Status: Acute (3) Headache ICD Code: R51 - Headache Status: Acute (4) Hypokalemia ICD Code: E87.6 - Hypokalemia Status: Acute (5) Hyponatremia ICD Code: E87.1 - Hypo-osmolality and hyponatremia Status: Acute (6) UTI (urinary tract infection) ICD Code: N39.0 - Urinary tract infection, site not specified Status: Acute (7) Acute kidney injury ICD Code: N17.9 - Acute kidney failure, unspecified Status: Acute (8) Electrolyte imbalance ICD Code: E87.8 - Other disorders of electrolyte and fluid balance, not elsewhere classified Assessment and Plan 56-year-old female with Hepatic steatosis Dehydration, resolved. Nausea, resolved. Transaminitis-improving Hypoalbuminemia - CT abdomen/pelvis showing two small punctate 2 mm nonobstructing calyceal calculi in the inferior pole of the left kidney. No evidence for obstructive uropathy. hepatic steatosis. No evidence for bowel obstruction. - Patient had MRCP, -Appreciate input from GI and s/p ERCP 05/29/17 - Hepatitis panel checked, negative. Urinary tract infection-E. coli s/p Rocephin and continue Cipro 500 mg every 12 hours Acute kidney injury Resolved with IV fluid hydration Hypophosphatemia Hypomagnesemia -Status post replacement with electrolyte Hypotension, resolved History of hypertension - Maintain MAP greater than 65 - Resume Lisinopril as hypotension and acute kidney injury resolved. Hypothyroidism: TSH: 6.2, FT3: 1.68. Free T4 WNL. on Synthroid 25mcg daily. Hyperlipidemia Although LDL of 202, however secondary to elevated LFTs will not start Statin. Patient to recheck LFTs in 4-6 weeks Chronic back pain - Patient previously on tramadol and Motrin 800 mg , baclofen on hold GI prophylaxis: Protonix p.o. DVT prophylaxis: SCDs. Heparin. Problem Qualifiers (1) UTI (urinary tract infection): Qualified Codes: N39.0 - Urinary tract infection, site not specified; R31.9 - Hematuria, unspecified Trevor Ramirez MD May 30, 2017 10:39
--- NOTE | 2017-05-30 10:40 | HHI.DS ---
Discharge Summary Admission Date May 25, 2017 at 16:21 Discharge Date: May 30, 2017 Admitting Diagnosis Dehydration, OMAR, hypokalemia, hyponatremia, UTI (1) Dehydration ICD Code: E86.0 - Dehydration Status: Acute (2) Right low back pain ICD Code: M54.5 - Low back pain Status: Acute (3) Headache ICD Code: R51 - Headache Status: Acute (4) Hypokalemia ICD Code: E87.6 - Hypokalemia Status: Acute (5) Hyponatremia ICD Code: E87.1 - Hypo-osmolality and hyponatremia Status: Acute (6) UTI (urinary tract infection) ICD Code: N39.0 - Urinary tract infection, site not specified Status: Acute (7) Acute kidney injury ICD Code: N17.9 - Acute kidney failure, unspecified Status: Acute (8) Electrolyte imbalance ICD Code: E87.8 - Other disorders of electrolyte and fluid balance, not elsewhere classified Procedures None Brief History - From Admission History of Present Illness HPI This is a 56-year-old female that presented to the [place] emergency department with complaints of dizziness/lightheadedness, generalized weakness, nausea, vomiting, diarrhea, low back/flank pain/mid scapular pain. Patient reports that the symptoms of dizziness/lightheadedness started yesterday and became progressively worse. Right now she has right flank pain and right lower pelvis that radiates to her left lower back that she describes as an ache. No urinary or bowel incontinence or retention. No dysuria or hematuria. No fevers or chills. She denies illicit drug use. She states she has not had any alcohol in a while, however reported to me she had approximately had a alcoholic binge 4-5 days ago She has had a few episodes of vomiting and diarrhea over the last couple of days, no melena or hematochezia. Emesis is clear. She has had little to eat or drink over the last 2 days of fever of vomiting. The patient's medical history significant for chronic back pain which she takes baclofen, and Motrin 800 mg. The patient also has a history of hypertension and takes Lisinopril last dose reportedly 2 days ago. Critical care medicine is consulted for patient's low blood pressure. Upon my evaluation in the ED patient's blood pressure systolic 109-115. Patient alert and oriented 3 responding to questions appropriately, with heart rate in the 70s. Patient currently drinking water and Gatorade, and occasionally having bouts of nausea. 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 Reported alcohol binge 4-5 days ago Tobacco Use: No (QUIT 1994) Substance Use: Yes Allergies-Medications Allergies-Medications (Allergen,Severity, Reaction): Coded Allergies: No Known Allergies (Verified Allergy, Unknown, 05/25/17) Reported Meds & Prescriptions Reported Meds & Active Scripts Active Tramadol (Tramadol HCl) 50 Mg Tab 50 Mg PO Q8H PRN Clindamycin (Clindamycin HCl) 150 Mg Cap 300 Mg PO TID 7 Days Reported Lisinopril 20 Mg Tab 20 Mg PO DAILY ROS Review of Systems Except as stated in HPI: 12 point review of systems negative with the exception of HPI CBC/BMP: 05/30/17 0536 05/30/17 0536 Significant Findings Laboratory Tests Test 05/28/17 07:41 05/29/17 16:22 05/30/17 05:36 Red Blood Count 2.98 MIL/MM3 (4.00-5.30) 2.47 MIL/MM3 (4.00-5.30) Hemoglobin 10.5 GM/DL (11.6-15.3) 9.1 GM/DL (11.6-15.3) Hematocrit 31.2 % (35.0-46.0) 26.0 % (35.0-46.0) Mean Corpuscular Volume 104.6 FL (80.0-100.0) 105.0 FL (80.0-100.0) Mean Corpuscular Hemoglobin 35.1 PG (27.0-34.0) 36.6 PG (27.0-34.0) Neutrophils (%) (Auto) 70.5 % (16.0-70.0) Monocytes (%) (Auto) 10.2 % (0.0-8.0) Calcium Level 7.2 MG/DL (8.5-10.1) 7.3 MG/DL (8.5-10.1) Phosphorus Level 1.5 MG/DL (2.5-4.9) Magnesium Level 1.1 MG/DL (1.5-2.5) 1.3 MG/DL (1.5-2.5) Sodium Level 134 MEQ/L (136-145) Chloride Level 108 MEQ/L (98-107) Carbon Dioxide Level 16.5 MEQ/L (21.0-32.0) 17.8 MEQ/L (21.0-32.0) Estimat Glomerular Filtration Rate 60 ML/MIN (>89) Protein Corrected Calcium 7.6 MG/DL (8.5-10.1) 8.0 MG/DL (8.5-10.1) Blood Urea Nitrogen 3 MG/DL (7-18) Total Protein 5.8 GM/DL (6.4-8.2) Albumin 2.3 GM/DL (3.4-5.0) Aspartate Amino Transf (AST/SGOT) 81 U/L (15-37) Total Bilirubin 1.2 MG/DL (0.2-1.0) Potassium Level 3.3 MEQ/L (3.5-5.1) Imaging Last Impressions Cholangiopancreatography MRI 05/27/17 0000 Signed Impressions: Service Date/Time: Saturday, May 27, 2017 13:19 - CONCLUSION: 1. CBD is prominent at 9-10 mm but no intrahepatic biliary duct dilatation. Gallbladder is mildly distended. 2. I do not see an obvious filling defect to suggest stones. The duct ends abruptly approximately 10 mm from the duodenum. While this may represent an elongated sphincter, an intra-ductal mass lesion cannot be completely excluded. ERCP may be useful for further characterization of this region. 3. Atrophic changes of the pancreas. Pancreas is otherwise intact Damon Cardona MD Gall Bladder Ultrasound 05/26/17 0000 Signed Impressions: Service Date/Time: Friday, May 26, 2017 08:05 - CONCLUSION: 1. Mildly prominent common bile duct measuring up to 8 mm (normal <=6 mm) without evidence for focal intraluminal abnormality on ultrasound. No associated intrahepatic ductal dilatation. Findings are somewhat nonspecific but may reflect sphincter dysfunction versus partial distal CBD obstruction. Further evaluation may be performed with ERCP or MRCP as clinically warranted. 2. Normal appearance of the gallbladder. No cholelithiasis or sonographic evidence for acute cholecystitis. 3. Hepatic steatosis. Yoshi Barnes MD Chest X-Ray 05/25/17 1102 Signed Impressions: Service Date/Time: May 11:08 - CONCLUSION: No acute cardiopulmonary process. Damon Cardona MD Head CT 05/25/17 0000 Signed Impressions: Service Date/Time: Friday, May 26, 2017 02:25 - CONCLUSION: No acute disease. Diego El Jr., MD Abdomen/Pelvis CT 05/25/17 0000 Signed Impressions: Service Date/Time: May 13:35 - CONCLUSION: 1. Two small punctate 2 mm nonobstructing calyceal calculi in the inferior pole of the left kidney. No evidence for obstructive uropathy. 2. Profound hepatic steatosis. 3. Normal appendix. No evidence for bowel obstruction. Yoshi Barnes MD PE at Discharge GENERAL: NAD SKIN: Warm and dry. HEAD: Normocephalic. EYES: No scleral icterus. No injection or drainage. NECK: Supple, trachea midline. No JVD or lymphadenopathy. CARDIOVASCULAR: Regular rate and rhythm without murmurs, gallops, or rubs. RESPIRATORY: Breath sounds equal bilaterally. No accessory muscle use. GASTROINTESTINAL: Abdomen soft, non-tender, nondistended. MUSCULOSKELETAL: No cyanosis, or edema. BACK: Nontender without obvious deformity. No CVA tenderness. Hospital Course While in the hospital, patient was treated for: Hepatic steatosis Dehydration, resolved. Nausea, resolved. Transaminitis-improving Hypoalbuminemia - CT abdomen/pelvis showing two small punctate 2 mm nonobstructing calyceal calculi in the inferior pole of the left kidney. No evidence for obstructive uropathy. hepatic steatosis. No evidence for bowel obstruction. - Patient had MRCP, -Appreciated input from GI and s/p ERCP 05/29/17 - Hepatitis panel checked, negative. Urinary tract infection-E. coli s/p Rocephin and she was switched to Cipro 500 mg every 12 hours Acute kidney injury Resolved with IV fluid hydration Hypophosphatemia Hypomagnesemia -Status post replacement with electrolyte Hypotension, resolved History of hypertension - Maintain MAP greater than 65 - Resume Lisinopril as hypotension and acute kidney injury resolved. Hypothyroidism: TSH: 6.2, FT3: 1.68. Free T4 WNL. on Synthroid 25mcg daily. Hyperlipidemia Although LDL of 202, however secondary to elevated LFTs will not start Statin. Patient to recheck LFTs in 4-6 weeks Chronic back pain - Patient previously on tramadol and Motrin 800 mg , baclofen on hold GI prophylaxis: Protonix p.o. DVT prophylaxis: SCDs. Heparin. Pt Condition on Discharge: Good Discharge Disposition: Discharge Home Discharge Time: <= 30 minutes Discharge Instructions DIET: Follow Instructions for: As Tolerated, No Restrictions Activities you can perform: Regular-No Restrictions Follow up Referrals: Appointment for Follow Up - 2 Weeks with Dann Chandra MD PCP Follow-up - 1 Week New Medications: Ciprofloxacin (Cipro) 500 Mg Tab 500 MG PO Q12HR for Infection, #10 TAB Continued Medications: Lisinopril (Lisinopril) 20 Mg Tab 20 MG PO DAILY, #30 TAB 0 Refills Discontinued Medications: Clindamycin (Clindamycin) 150 Mg Cap 300 MG PO TID for Infection for 7 Days, CAP 0 Refills Tramadol (Tramadol) 50 Mg Tab 50 MG PO Q8H PRN for PAIN, #20 TAB 0 Refills Trevor Ramirez MD May 30, 2017 10:40
== END 2017-05-30 13:04 | disposition home or self-care (01) | DRG 683 ==
LOC: PHED 10:45 → PHEDA 16:21 → PHICU 18:22 → PH3B 05-28 06:18 → N07B 05-29 00:08
PROVIDERS: ADMIT Hospitalist; ATTEND Hospitalist
PROC: 0DJ08ZZ Inspection of Upper Intestinal Tract, Via Natural or Artificial Opening Endoscopic (ICD-10-PCS; 2017-05-29)
PROC: 0DB78ZX Excision of Stomach, Pylorus, Via Natural or Artificial Opening Endoscopic, Diagnostic (ICD-10-PCS; principal; 2017-05-29 13:53)
DX: N17.9 Acute kidney failure, unspecified (principal); E87.1 Hypo-osmolality and hyponatremia; I95.9 Hypotension, unspecified; K76.0 Fatty (change of) liver, not elsewhere classified; E88.09 Other disorders of plasma-protein metabolism, not elsewhere classified; E83.42 Hypomagnesemia; N39.0 Urinary tract infection, site not specified; E83.39 Other disorders of phosphorus metabolism; R16.0 Hepatomegaly, not elsewhere classified; I10 Essential (primary) hypertension; E03.9 Hypothyroidism, unspecified; E78.5 Hyperlipidemia, unspecified; E86.0 Dehydration; E87.6 Hypokalemia; N20.0 Calculus of kidney; K82.4 Cholesterolosis of gallbladder; K29.70 Gastritis, unspecified, without bleeding; R74.0 Nonspecific elevation of levels of transaminase and lactic acid dehydrogenase [LDH]; M54.5 Low back pain; G89.29 Other chronic pain; R79.89 Other specified abnormal findings of blood chemistry; F10.10 Alcohol abuse, uncomplicated; F32.9 Major depressive disorder, single episode, unspecified; Y90.0 Blood alcohol level of less than 20 mg/100 ml; Z23 Encounter for immunization; Z87.891 Personal history of nicotine dependence
CPT/HCPCS: 43259; 70450; 71045; 74176; 74181; 76377; 76705; 80048; 80053; 80061; 80074; 80307; 81001; 82140; 82272; 82378; 82533; 82550; 83605; 83690; 83735; 84100; 84155; 84295; 84436; 84439; 84443; 84481; 84484; 85025; 85027; 85610; 85730; 86301; 87040; 87077; 87086; 87186; 87641; 88305; 88312; 90732; 93005; 94150; 96361; 96365; C9113; J0610; J0696; J1644; J2250; J3010; J3475; J3480; J7030; J7050; J7120

== ENCOUNTER 2017-10-03 07:00 | Inpatient (IN) ==
[2017-10-03] MEDS ORDERED: Thiamine Inj 100 MG in Sodium Chlor 0.9% Inj 100 ML IV.SIG ONE (07:06)
--- NOTE | 2017-10-03 07:23 | ED ---
HPI General Chief complaint: Altered Mental Status Stated complaint: Evac/Altered mental Time Seen by Provider: 10/03/17 07:13 History of Present Illness HPI narrative: History of present illness on this patient is very limited by the patient's altered mental status. This is a 56-year-old female, apparently daughter had been calling her since about 2:00 in the morning and had been able to get through so she called 911. 9 1 found the patient on the floor glass strewn about the room and the patient had been down for an unknown period of time. Apparently has a history of alcoholism. The patient on physical exam can tell me her first name, and when I asked her to answer any other questions she just says that she is 5 foot 7. No other history is readily available from this patient is no family is at the bedside. Related Data Home Medications Medication Instructions Recorded Confirmed Unable to Obtain Home Meds 10/03/17 10/03/17 Allergies Allergy/AdvReac Type Severity Reaction Status Date / Time No Known Allergies Allergy Unverified 10/03/17 07:09 Review of Systems ROS Unobtainable ROS Unobtainable: unobtainable due to mental status PMFSH Family History Family History Other Unknown family medical history Social History Social History Substance History: No History of Abuse Second Hand Smoke Exposure: No Smoking Status: Former smoker How Often Do You Have a Drink Containing Alcohol: 4 or more times a week Immunization History Tetanus Immunization Year if Known: 2017 Exam Narrative Exam Narrative: GENERAL: Well-developed under nourished female patient appears older than stated age. Bruises of multiple stages of healing on her forehead and face. SKIN: There are scattered bruises over her upper and lower extremities as well as her face. These are all in multiple different stages of healing. There is scattered yellow hue of her skin, probably from healing bruising but cannot rule out mild jaundice. Specific bruising noted and includes a large bruise to her middle of her forehead, large bruise to the right knee, scattered bruises on both forearms, there is a bruise over the right iliac crest and one over the right flank, there is also a stage I pressure ulcer on the sacrum. HEAD: No king signs no raccoons eyes. Multiple bruises at different stages of healing on her face as above.. Normocephalic. EYES: Pupils equal and round. No scleral icterus. No injection or drainage. ENT: No nasal bleeding or discharge. Mucous membranes pink and moist. NECK: Trachea midline. No JVD. CARDIOVASCULAR: Regular rate and rhythm. No murmur appreciated. RESPIRATORY: No accessory muscle use. Clear to auscultation. Breath sounds equal bilaterally. GASTROINTESTINAL: Abdomen soft, non-tender, nondistended. Hepatic and splenic margins not palpable. MUSCULOSKELETAL: No obvious deformities. No clubbing. No cyanosis. No edema. NEUROLOGICAL: Alert and awake, very confused as per HPI. Very repetitive in questioning. Is playing with the sensors on her but is unable to follow commands but does have purposeful movement in all 4 extremities. She has what appears to be a contracture of her right hand most limited in the adduction of her thumb. No obvious cranial nerve deficits. No tremor seen, no seizure activity on initial exam peer PSYCHIATRIC: Unable to assess Course Initial Documented Vital Signs Temperature 98.2 F 10/03/17 07:01 Pulse Rate 76 10/03/17 07:01 Respiratory Rate 15 10/03/17 07:01 Blood Pressure 150/104 H 10/03/17 07:01 Pulse Oximetry 94 L 10/03/17 07:01 Last Documented Vital Signs Temperature 98.3 F 10/05/17 04:00 Pulse Rate 67 10/05/17 04:00 Respiratory Rate 16 10/05/17 04:00 Blood Pressure 134/87 10/05/17 04:00 Pulse Oximetry 100 10/05/17 07:52 Medical Decision Making [facility] Narrative Medical decision making narrative: Review of the patient's labs shows that she has not a significant acute kidney from a month ago, creatinine has gone from 0.72 in excess of 3, she does also have metabolic acidosis with anion gap. And because of her anion gap is yet unidentified, could consider alcoholic ketoacidosis, other differentials include Wernicke's encephalopathy, UTI. Significant difficulty with straight cathing the patient and she did have some hematuria. A bedside ultrasound shows that she has no urine in the bladder. I think the patient clinically is dehydrated, failure to thrive multiple bruising. I have added on a CAT scan of her chest abdomen and pelvis to screen for any additional internal injuries, CT head and C-spine were negative. Patient remaining altered, thiamine, normal saline, potassium is being repleted. Will obligate admission to the hospital for further workup, I have attempted to call patient's daughter Rhina with no answer. Patient lactic acid is normal negating the need for aggressive fluid resuscitation. Medical Screen Exam Complete: Yes Emergency Medical Condition: Yes Differential Diagnosis Differential Diagnosis: Head injury, sepsis, UTI, coagulopathy, electrolyte abnormality, alcohol intoxication, hepatic encephalopathy, toxic encephalopathy. Subacute CVA. Lab Data Result diagrams: 10/05/17 04:40 10/05/17 04:40 Lab Results 10/03/17 10/03/17 10/03/17 Range/Units 07:30 07:30 07:30 CBC w Diff Auto diff final WBC 15.9 H (4.0-11.0) th/mm3 RBC 2.71 L (4.00-5.30) mil/mm3 Hgb 9.8 L (11.6-15.3) gm/dL Hct 28.1 L (35.0-46.0) % MCV 103.8 H (80.0-100.0) fL MCH 36.1 H (27.0-34.0) pg MCHC 34.8 (32.0-36.0) % RDW 16.8 (11.6-17.2) % Plt Count 187 D (150-450) th/mm3 MPV 8.4 (7.0-11.0) fL Neut % (Auto) 84.3 H (16.0-70.0) % Lymph % (Auto) 9.1 (9.0-44.0) % Gila % (Auto) 6.4 (0.0-8.0) % Eos % (Auto) 0.0 (0.0-4.0) % Baso % (Auto) 0.2 (0.0-2.0) % Neut # (Auto) 13.5 H (1.8-7.7) th/mm3 Lymph # (Auto) 1.4 (1.0-4.8) th/mm3 Gila # (Auto) 1.0 H (0.0-0.9) th/mm3 Eos # (Auto) 0.0 (0.0-0.4) th/mm3 Baso # (Auto) 0.0 (0.0-0.2) th/mm3 WBC Differential . Diff Scan Differential Comment . PT 13.4 H (9.8-11.6) sec INR 1.3 Ratio APTT 21.9 L (24.3-30.1) sec Sodium 145 (136-145) meq/L Potassium 2.8 L* (3.5-5.1) meq/L Chloride 108 H (98-107) meq/L Carbon Dioxide 18.4 L (21.0-32.0) meq/L Anion Gap 19 H (5-15) meq/L BUN 27 H (7-18) mg/dL Creatinine 3.30 H (0.50-1.00) mg/dL Estimated GFR 15 L (>89) mL/min POC Glucose (68-110) mg/dl Random Glucose 122 H (74-106) mg/dL Lactic Acid (0.4-2.0) mmol/L Calcium 8.4 L (8.5-10.1) mg/dL Prot Corrected Calcium (8.5-10.1) mg/dL Magnesium (1.5-2.5) mg/dL Total Bilirubin 1.3 H (0.2-1.0) mg/dL AST 119 H (15-37) U/L ALT 40 (10-53) U/L Alkaline Phosphatase 163 H (45-117) U/L Ammonia (11-32) mcmol/L Total Creatine Kinase 733 H (26-192) U/L CK-MB (CK-2) 13.4 H (0.5-3.6) ng/mL CK-MB (CK-2) % 1.8 (0.0-4.0) % Troponin I Less than 0.02 L (0.02-0.05) ng/mL Total Protein 8.1 (6.4-8.2) g/dL Albumin 3.5 (3.4-5.0) g/dL TSH 8.410 H (0.358-3.740) uIU/mL Free T4 (0.76-1.46) ng/dL Free T3 (2.18-3.98) pg/mL Ur Collection Type Urine Color (Yellw/Straw) Urine Clarity (Clear) Urine pH (5.0-8.5) Ur Specific [place] (1.002-1.035) Urine Protein (Neg-Trace) mg/dL Urine Glucose (UA) (Negative) mg/dL Urine Ketones (Negative) mg/dL Urine Occult Blood (Negative) Urine Nitrate (Negative) Urine Bilirubin (Negative) Urine Urobilinogen (Less than 2) mg/dL Ur Leukocyte Esterase (Negative) Urine RBC (0-3) /hpf Urine WBC (0-5) /hpf Ur Transition Epith Cell (None) /hpf Ur Renal Epithelial Cell (None) /hpf Amorphous Sediment (None) /hpf Micro UA Comment Ur Microscopic Review Urine Culture Comments Urine Opiates Screen (Neg) Ur Barbiturates Screen (Neg) Ur Amphetamines Screen (Neg) U Benzodiazepines Scrn (Neg) Urine Cocaine Screen (Neg) U Cannabinoids Screen (Neg) Serum Alcohol Less than 3 (0-5) mg/dL 10/03/17 10/03/17 10/03/17 Range/Units 07:30 07:30 07:38 CBC w Diff WBC (4.0-11.0) th/mm3 RBC (4.00-5.30) mil/mm3 Hgb (11.6-15.3) gm/dL Hct (35.0-46.0) % MCV (80.0-100.0) fL MCH (27.0-34.0) pg MCHC (32.0-36.0) % RDW (11.6-17.2) % Plt Count (150-450) th/mm3 MPV (7.0-11.0) fL Neut % (Auto) (16.0-70.0) % Lymph % (Auto) (9.0-44.0) % Gila % (Auto) (0.0-8.0) % Eos % (Auto) (0.0-4.0) % Baso % (Auto) (0.0-2.0) % Neut # (Auto) (1.8-7.7) th/mm3 Lymph # (Auto) (1.0-4.8) th/mm3 Gila # (Auto) (0.0-0.9) th/mm3 Eos # (Auto) (0.0-0.4) th/mm3 Baso # (Auto) (0.0-0.2) th/mm3 WBC Differential Diff Scan Differential Comment PT (9.8-11.6) sec INR Ratio APTT (24.3-30.1) sec Sodium (136-145) meq/L Potassium (3.5-5.1) meq/L Chloride (98-107) meq/L Carbon Dioxide (21.0-32.0) meq/L Anion Gap (5-15) meq/L BUN (7-18) mg/dL Creatinine (0.50-1.00) mg/dL Estimated GFR (>89) mL/min POC Glucose 146 H (68-110) mg/dl Random Glucose (74-106) mg/dL Lactic Acid 1.6 (0.4-2.0) mmol/L Calcium (8.5-10.1) mg/dL Prot Corrected Calcium (8.5-10.1) mg/dL Magnesium (1.5-2.5) mg/dL Total Bilirubin (0.2-1.0) mg/dL AST (15-37) U/L ALT (10-53) U/L Alkaline Phosphatase (45-117) U/L Ammonia 35 H (11-32) mcmol/L Total Creatine Kinase (26-192) U/L CK-MB (CK-2) (0.5-3.6) ng/mL CK-MB (CK-2) % (0.0-4.0) % Troponin I (0.02-0.05) ng/mL Total Protein (6.4-8.2) g/dL Albumin (3.4-5.0) g/dL TSH (0.358-3.740) uIU/mL Free T4 (0.76-1.46) ng/dL Free T3 (2.18-3.98) pg/mL Ur Collection Type Urine Color (Yellw/Straw) Urine Clarity (Clear) Urine pH (5.0-8.5) Ur Specific [place] (1.002-1.035) Urine Protein (Neg-Trace) mg/dL Urine Glucose (UA) (Negative) mg/dL Urine Ketones (Negative) mg/dL Urine Occult Blood (Negative) Urine Nitrate (Negative) Urine Bilirubin (Negative) Urine Urobilinogen (Less than 2) mg/dL Ur Leukocyte Esterase (Negative) Urine RBC (0-3) /hpf Urine WBC (0-5) /hpf Ur Transition Epith Cell (None) /hpf Ur Renal Epithelial Cell (None) /hpf Amorphous Sediment (None) /hpf Micro UA Comment Ur Microscopic Review Urine Culture Comments Urine Opiates Screen (Neg) Ur Barbiturates Screen (Neg) Ur Amphetamines Screen (Neg) U Benzodiazepines Scrn (Neg) Urine Cocaine Screen (Neg) U Cannabinoids Screen (Neg) Serum Alcohol (0-5) mg/dL 10/03/17 10/03/17 10/03/17 Range/Units 08:05 08:05 19:15 CBC w Diff WBC (4.0-11.0) th/mm3 RBC (4.00-5.30) mil/mm3 Hgb (11.6-15.3) gm/dL Hct (35.0-46.0) % MCV (80.0-100.0) fL MCH (27.0-34.0) pg MCHC (32.0-36.0) % RDW (11.6-17.2) % Plt Count (150-450) th/mm3 MPV (7.0-11.0) fL Neut % (Auto) (16.0-70.0) % Lymph % (Auto) (9.0-44.0) % Gila % (Auto) (0.0-8.0) % Eos % (Auto) (0.0-4.0) % Baso % (Auto) (0.0-2.0) % Neut # (Auto) (1.8-7.7) th/mm3 Lymph # (Auto) (1.0-4.8) th/mm3 Gila # (Auto) (0.0-0.9) th/mm3 Eos # (Auto) (0.0-0.4) th/mm3 Baso # (Auto) (0.0-0.2) th/mm3 WBC Differential Diff Scan Differential Comment PT (9.8-11.6) sec INR Ratio APTT (24.3-30.1) sec Sodium 149 H (136-145) meq/L Potassium 3.7 D (3.5-5.1) meq/L Chloride 115 H (98-107) meq/L Carbon Dioxide 18.1 L (21.0-32.0) meq/L Anion Gap 16 H (5-15) meq/L BUN 25 H (7-18) mg/dL Creatinine 2.10 H (0.50-1.00) mg/dL Estimated GFR 25 L (>89) mL/min POC Glucose (68-110) mg/dl Random Glucose 77 (74-106) mg/dL Lactic Acid (0.4-2.0) mmol/L Calcium 7.7 L (8.5-10.1) mg/dL Prot Corrected Calcium (8.5-10.1) mg/dL Magnesium (1.5-2.5) mg/dL Total Bilirubin (0.2-1.0) mg/dL AST (15-37) U/L ALT (10-53) U/L Alkaline Phosphatase (45-117) U/L Ammonia (11-32) mcmol/L Total Creatine Kinase 698 H (26-192) U/L CK-MB (CK-2) 9.8 H (0.5-3.6) ng/mL CK-MB (CK-2) % 1.4 (0.0-4.0) % Troponin I (0.02-0.05) ng/mL Total Protein (6.4-8.2) g/dL Albumin (3.4-5.0) g/dL TSH (0.358-3.740) uIU/mL Free T4 (0.76-1.46) ng/dL Free T3 (2.18-3.98) pg/mL Ur Collection Type Cath Urine Color Red H (Yellw/Straw) Urine Clarity Cloudy H (Clear) Urine pH 6.0 (5.0-8.5) Ur Specific [place] 1.025 (1.002-1.035) Urine Protein 300 or greater H (Neg-Trace) mg/dL Urine Glucose (UA) Negative (Negative) mg/dL Urine Ketones 15 H (Negative) mg/dL Urine Occult Blood Large H (Negative) Urine Nitrate Negative (Negative) Urine Bilirubin Negative (Negative) Urine Urobilinogen 1.0 (Less than 2) mg/dL Ur Leukocyte Esterase Small H (Negative) Urine RBC Innumerable H (0-3) /hpf Urine WBC 21-50 H (0-5) /hpf Ur Transition Epith Cell 1-5 H (None) /hpf Ur Renal Epithelial Cell 6-10 H (None) /hpf Amorphous Sediment Few H (None) /hpf Micro UA Comment Cath-culture ind Ur Microscopic Review Microscopic reviewed Urine Culture Comments Cath-cult indicated Urine Opiates Screen Neg (Neg) Ur Barbiturates Screen Neg (Neg) Ur Amphetamines Screen Neg (Neg) U Benzodiazepines Scrn Neg (Neg) Urine Cocaine Screen Neg (Neg) U Cannabinoids Screen Neg (Neg) Serum Alcohol (0-5) mg/dL 10/03/17 10/04/17 10/04/17 Range/Units 19:15 02:46 05:00 CBC w Diff WBC (4.0-11.0) th/mm3 RBC (4.00-5.30) mil/mm3 Hgb (11.6-15.3) gm/dL Hct (35.0-46.0) % MCV (80.0-100.0) fL MCH (27.0-34.0) pg MCHC (32.0-36.0) % RDW (11.6-17.2) % Plt Count (150-450) th/mm3 MPV (7.0-11.0) fL Neut % (Auto) (16.0-70.0) % Lymph % (Auto) (9.0-44.0) % Gila % (Auto) (0.0-8.0) % Eos % (Auto) (0.0-4.0) % Baso % (Auto) (0.0-2.0) % Neut # (Auto) (1.8-7.7) th/mm3 Lymph # (Auto) (1.0-4.8) th/mm3 Gila # (Auto) (0.0-0.9) th/mm3 Eos # (Auto) (0.0-0.4) th/mm3 Baso # (Auto) (0.0-0.2) th/mm3 WBC Differential Diff Scan Differential Comment PT (9.8-11.6) sec INR Ratio APTT (24.3-30.1) sec Sodium 149 H (136-145) meq/L Potassium 2.4 L* D (3.5-5.1) meq/L Chloride 117 H (98-107) meq/L Carbon Dioxide 19.1 L (21.0-32.0) meq/L Anion Gap 13 (5-15) meq/L BUN 21 H (7-18) mg/dL Creatinine 1.30 H (0.50-1.00) mg/dL Estimated GFR 43 L (>89) mL/min POC Glucose 76 (68-110) mg/dl Random Glucose 80 (74-106) mg/dL Lactic Acid (0.4-2.0) mmol/L Calcium 7.3 L* (8.5-10.1) mg/dL Prot Corrected Calcium 7.5 L (8.5-10.1) mg/dL Magnesium 1.6 (1.5-2.5) mg/dL Total Bilirubin 1.0 (0.2-1.0) mg/dL AST 108 H (15-37) U/L ALT 34 (10-53) U/L Alkaline Phosphatase 131 H (45-117) U/L Ammonia (11-32) mcmol/L Total Creatine Kinase 444 H (26-192) U/L CK-MB (CK-2) 5.8 H (0.5-3.6) ng/mL CK-MB (CK-2) % 1.3 (0.0-4.0) % Troponin I (0.02-0.05) ng/mL Total Protein 6.7 D (6.4-8.2) g/dL Albumin 2.7 L D (3.4-5.0) g/dL TSH (0.358-3.740) uIU/mL Free T4 1.07 (0.76-1.46) ng/dL Free T3 1.83 L (2.18-3.98) pg/mL Ur Collection Type Urine Color (Yellw/Straw) Urine Clarity (Clear) Urine pH (5.0-8.5) Ur Specific [place] (1.002-1.035) Urine Protein (Neg-Trace) mg/dL Urine Glucose (UA) (Negative) mg/dL Urine Ketones (Negative) mg/dL Urine Occult Blood (Negative) Urine Nitrate (Negative) Urine Bilirubin (Negative) Urine Urobilinogen (Less than 2) mg/dL Ur Leukocyte Esterase (Negative) Urine RBC (0-3) /hpf Urine WBC (0-5) /hpf Ur Transition Epith Cell (None) /hpf Ur Renal Epithelial Cell (None) /hpf Amorphous Sediment (None) /hpf Micro UA Comment Ur Microscopic Review Urine Culture Comments Urine Opiates Screen (Neg) Ur Barbiturates Screen (Neg) Ur Amphetamines Screen (Neg) U Benzodiazepines Scrn (Neg) Urine Cocaine Screen (Neg) U Cannabinoids Screen (Neg) Serum Alcohol (0-5) mg/dL 10/04/17 10/04/17 10/04/17 Range/Units 05:00 05:00 07:47 CBC w Diff Auto diff final WBC 6.2 D (4.0-11.0) th/mm3 RBC 2.42 L (4.00-5.30) mil/mm3 Hgb 8.3 L (11.6-15.3) gm/dL Hct 25.5 L (35.0-46.0) % MCV 105.4 H (80.0-100.0) fL MCH 34.5 H (27.0-34.0) pg MCHC 32.7 (32.0-36.0) % RDW 16.6 (11.6-17.2) % Plt Count 155 (150-450) th/mm3 MPV 7.0 (7.0-11.0) fL Neut % (Auto) 65.3 (16.0-70.0) % Lymph % (Auto) 24.6 (9.0-44.0) % Gila % (Auto) 9.5 H (0.0-8.0) % Eos % (Auto) 0.2 (0.0-4.0) % Baso % (Auto) 0.4 (0.0-2.0) % Neut # (Auto) 4.1 (1.8-7.7) th/mm3 Lymph # (Auto) 1.5 (1.0-4.8) th/mm3 Gila # (Auto) 0.6 (0.0-0.9) th/mm3 Eos # (Auto) 0.0 (0.0-0.4) th/mm3 Baso # (Auto) 0.0 (0.0-0.2) th/mm3 WBC Differential . Diff Scan Differential Comment . PT (9.8-11.6) sec INR Ratio APTT (24.3-30.1) sec Sodium (136-145) meq/L Potassium (3.5-5.1) meq/L Chloride (98-107) meq/L Carbon Dioxide (21.0-32.0) meq/L Anion Gap (5-15) meq/L BUN (7-18) mg/dL Creatinine (0.50-1.00) mg/dL Estimated GFR (>89) mL/min POC Glucose 87 (68-110) mg/dl Random Glucose (74-106) mg/dL Lactic Acid (0.4-2.0) mmol/L Calcium (8.5-10.1) mg/dL Prot Corrected Calcium (8.5-10.1) mg/dL Magnesium (1.5-2.5) mg/dL Total Bilirubin (0.2-1.0) mg/dL AST (15-37) U/L ALT (10-53) U/L Alkaline Phosphatase (45-117) U/L Ammonia 42 H (11-32) mcmol/L Total Creatine Kinase (26-192) U/L CK-MB (CK-2) (0.5-3.6) ng/mL CK-MB (CK-2) % (0.0-4.0) % Troponin I (0.02-0.05) ng/mL Total Protein (6.4-8.2) g/dL Albumin (3.4-5.0) g/dL TSH (0.358-3.740) uIU/mL Free T4 (0.76-1.46) ng/dL Free T3 (2.18-3.98) pg/mL Ur Collection Type Urine Color (Yellw/Straw) Urine Clarity (Clear) Urine pH (5.0-8.5) Ur Specific [place] (1.002-1.035) Urine Protein (Neg-Trace) mg/dL Urine Glucose (UA) (Negative) mg/dL Urine Ketones (Negative) mg/dL Urine Occult Blood (Negative) Urine Nitrate (Negative) Urine Bilirubin (Negative) Urine Urobilinogen (Less than 2) mg/dL Ur Leukocyte Esterase (Negative) Urine RBC (0-3) /hpf Urine WBC (0-5) /hpf Ur Transition Epith Cell (None) /hpf Ur Renal Epithelial Cell (None) /hpf Amorphous Sediment (None) /hpf Micro UA Comment Ur Microscopic Review Urine Culture Comments Urine Opiates Screen (Neg) Ur Barbiturates Screen (Neg) Ur Amphetamines Screen (Neg) U Benzodiazepines Scrn (Neg) Urine Cocaine Screen (Neg) U Cannabinoids Screen (Neg) Serum Alcohol (0-5) mg/dL 08/29/18 08/29/18 08/29/18 Range/Units 11:49 15:26 21:06 CBC w Diff WBC (4.0-11.0) th/mm3 RBC (4.00-5.30) mil/mm3 Hgb (11.6-15.3) gm/dL Hct (35.0-46.0) % MCV (80.0-100.0) fL MCH (27.0-34.0) pg MCHC (32.0-36.0) % RDW (11.6-17.2) % Plt Count (150-450) th/mm3 MPV (7.0-11.0) fL Neut % (Auto) (16.0-70.0) % Lymph % (Auto) (9.0-44.0) % Gila % (Auto) (0.0-8.0) % Eos % (Auto) (0.0-4.0) % Baso % (Auto) (0.0-2.0) % Neut # (Auto) (1.8-7.7) th/mm3 Lymph # (Auto) (1.0-4.8) th/mm3 Gila # (Auto) (0.0-0.9) th/mm3 Eos # (Auto) (0.0-0.4) th/mm3 Baso # (Auto) (0.0-0.2) th/mm3 WBC Differential Diff Scan Differential Comment PT (9.8-11.6) sec INR Ratio APTT (24.3-30.1) sec Sodium (136-145) meq/L Potassium (3.5-5.1) meq/L Chloride (98-107) meq/L Carbon Dioxide (21.0-32.0) meq/L Anion Gap (5-15) meq/L BUN (7-18) mg/dL Creatinine (0.50-1.00) mg/dL Estimated GFR (>89) mL/min POC Glucose 102 117 H 117 H (68-110) mg/dl Random Glucose (74-106) mg/dL Lactic Acid (0.4-2.0) mmol/L Calcium (8.5-10.1) mg/dL Prot Corrected Calcium (8.5-10.1) mg/dL Magnesium (1.5-2.5) mg/dL Total Bilirubin (0.2-1.0) mg/dL AST (15-37) U/L ALT (10-53) U/L Alkaline Phosphatase (45-117) U/L Ammonia (11-32) mcmol/L Total Creatine Kinase (26-192) U/L CK-MB (CK-2) (0.5-3.6) ng/mL CK-MB (CK-2) % (0.0-4.0) % Troponin I (0.02-0.05) ng/mL Total Protein (6.4-8.2) g/dL Albumin (3.4-5.0) g/dL TSH (0.358-3.740) uIU/mL Free T4 (0.76-1.46) ng/dL Free T3 (2.18-3.98) pg/mL Ur Collection Type Urine Color (Yellw/Straw) Urine Clarity (Clear) Urine pH (5.0-8.5) Ur Specific [place] (1.002-1.035) Urine Protein (Neg-Trace) mg/dL Urine Glucose (UA) (Negative) mg/dL Urine Ketones (Negative) mg/dL Urine Occult Blood (Negative) Urine Nitrate (Negative) Urine Bilirubin (Negative) Urine Urobilinogen (Less than 2) mg/dL Ur Leukocyte Esterase (Negative) Urine RBC (0-3) /hpf Urine WBC (0-5) /hpf Ur Transition Epith Cell (None) /hpf Ur Renal Epithelial Cell (None) /hpf Amorphous Sediment (None) /hpf Micro UA Comment Ur Microscopic Review Urine Culture Comments Urine Opiates Screen (Neg) Ur Barbiturates Screen (Neg) Ur Amphetamines Screen (Neg) U Benzodiazepines Scrn (Neg) Urine Cocaine Screen (Neg) U Cannabinoids Screen (Neg) Serum Alcohol (0-5) mg/dL 10/05/17 10/05/17 10/05/17 Range/Units 04:40 04:40 04:40 CBC w Diff Slide review pending WBC 5.6 (4.0-11.0) th/mm3 RBC 2.41 L (4.00-5.30) mil/mm3 Hgb 8.4 L (11.6-15.3) gm/dL Hct 25.2 L (35.0-46.0) % MCV 104.8 H (80.0-100.0) fL MCH 34.7 H (27.0-34.0) pg MCHC 33.1 (32.0-36.0) % RDW 16.1 (11.6-17.2) % Plt Count 189 (150-450) th/mm3 MPV 7.4 (7.0-11.0) fL Neut % (Auto) 53.3 (16.0-70.0) % Lymph % (Auto) 31.4 (9.0-44.0) % Gila % (Auto) 13.9 H (0.0-8.0) % Eos % (Auto) 0.9 (0.0-4.0) % Baso % (Auto) 0.5 (0.0-2.0) % Neut # (Auto) 2.9 (1.8-7.7) th/mm3 Lymph # (Auto) 1.8 (1.0-4.8) th/mm3 Gila # (Auto) 0.8 (0.0-0.9) th/mm3 Eos # (Auto) 0.1 (0.0-0.4) th/mm3 Baso # (Auto) 0.0 (0.0-0.2) th/mm3 WBC Differential . Diff Scan Auto diff confirmed Differential Comment . PT (9.8-11.6) sec INR Ratio APTT (24.3-30.1) sec Sodium 137 D (136-145) meq/L Potassium 3.4 L D (3.5-5.1) meq/L Chloride 108 H D (98-107) meq/L Carbon Dioxide 17.0 L (21.0-32.0) meq/L Anion Gap 12 (5-15) meq/L BUN 9 (7-18) mg/dL Creatinine 0.69 (0.50-1.00) mg/dL Estimated GFR 89 (>89) mL/min POC Glucose (68-110) mg/dl Random Glucose 89 (74-106) mg/dL Lactic Acid (0.4-2.0) mmol/L Calcium 7.2 L* (8.5-10.1) mg/dL Prot Corrected Calcium 7.5 L (8.5-10.1) mg/dL Magnesium (1.5-2.5) mg/dL Total Bilirubin 1.0 (0.2-1.0) mg/dL AST 130 H (15-37) U/L ALT 42 (10-53) U/L Alkaline Phosphatase 144 H (45-117) U/L Ammonia 41 H (11-32) mcmol/L Total Creatine Kinase 254 H (26-192) U/L CK-MB (CK-2) 2.1 (0.5-3.6) ng/mL CK-MB (CK-2) % 0.8 (0.0-4.0) % Troponin I (0.02-0.05) ng/mL Total Protein 6.5 (6.4-8.2) g/dL Albumin 2.6 L (3.4-5.0) g/dL TSH (0.358-3.740) uIU/mL Free T4 (0.76-1.46) ng/dL Free T3 (2.18-3.98) pg/mL Ur Collection Type Urine Color (Yellw/Straw) Urine Clarity (Clear) Urine pH (5.0-8.5) Ur Specific [place] (1.002-1.035) Urine Protein (Neg-Trace) mg/dL Urine Glucose (UA) (Negative) mg/dL Urine Ketones (Negative) mg/dL Urine Occult Blood (Negative) Urine Nitrate (Negative) Urine Bilirubin (Negative) Urine Urobilinogen (Less than 2) mg/dL Ur Leukocyte Esterase (Negative) Urine RBC (0-3) /hpf Urine WBC (0-5) /hpf Ur Transition Epith Cell (None) /hpf Ur Renal Epithelial Cell (None) /hpf Amorphous Sediment (None) /hpf Micro UA Comment Ur Microscopic Review Urine Culture Comments Urine Opiates Screen (Neg) Ur Barbiturates Screen (Neg) Ur Amphetamines Screen (Neg) U Benzodiazepines Scrn (Neg) Urine Cocaine Screen (Neg) U Cannabinoids Screen (Neg) Serum Alcohol (0-5) mg/dL 10/05/18 Range/Units 08:26 CBC w Diff WBC (4.0-11.0) th/mm3 RBC (4.00-5.30) mil/mm3 Hgb (11.6-15.3) gm/dL Hct (35.0-46.0) % MCV (80.0-100.0) fL MCH (27.0-34.0) pg MCHC (32.0-36.0) % RDW (11.6-17.2) % Plt Count (150-450) th/mm3 MPV (7.0-11.0) fL Neut % (Auto) (16.0-70.0) % Lymph % (Auto) (9.0-44.0) % Gila % (Auto) (0.0-8.0) % Eos % (Auto) (0.0-4.0) % Baso % (Auto) (0.0-2.0) % Neut # (Auto) (1.8-7.7) th/mm3 Lymph # (Auto) (1.0-4.8) th/mm3 [place] # (Auto) (0.0-0.9) th/mm3 Eos # (Auto) (0.0-0.4) th/mm3 Baso # (Auto) (0.0-0.2) th/mm3 WBC Differential Diff Scan Differential Comment PT (9.8-11.6) sec INR Ratio APTT (24.3-30.1) sec Sodium (136-145) meq/L Potassium (3.5-5.1) meq/L Chloride (98-107) meq/L Carbon Dioxide (21.0-32.0) meq/L Anion Gap (5-15) meq/L BUN (7-18) mg/dL Creatinine (0.50-1.00) mg/dL Estimated GFR (>89) mL/min POC Glucose 109 (68-110) mg/dl Random Glucose (74-106) mg/dL Lactic Acid (0.4-2.0) mmol/L Calcium (8.5-10.1) mg/dL Prot Corrected Calcium (8.5-10.1) mg/dL Magnesium (1.5-2.5) mg/dL Total Bilirubin (0.2-1.0) mg/dL AST (15-37) U/L ALT (10-53) U/L Alkaline Phosphatase (45-117) U/L Ammonia (11-32) mcmol/L Total Creatine Kinase (26-192) U/L CK-MB (CK-2) (0.5-3.6) ng/mL CK-MB (CK-2) % (0.0-4.0) % Troponin I (0.02-0.05) ng/mL Total Protein (6.4-8.2) g/dL Albumin (3.4-5.0) g/dL TSH (0.358-3.740) uIU/mL Free T4 (0.76-1.46) ng/dL Free T3 (2.18-3.98) pg/mL Ur Collection Type Urine Color (Yellw/Straw) Urine Clarity (Clear) Urine pH (5.0-8.5) Ur Specific [place] (1.002-1.035) Urine Protein (Neg-Trace) mg/dL Urine Glucose (UA) (Negative) mg/dL Urine Ketones (Negative) mg/dL Urine Occult Blood (Negative) Urine Nitrate (Negative) Urine Bilirubin (Negative) Urine Urobilinogen (Less than 2) mg/dL Ur Leukocyte Esterase (Negative) Urine RBC (0-3) /hpf Urine WBC (0-5) /hpf Ur Transition Epith Cell (None) /hpf Ur Renal Epithelial Cell (None) /hpf Amorphous Sediment (None) /hpf Micro UA Comment Ur Microscopic Review Urine Culture Comments Urine Opiates Screen (Neg) Ur Barbiturates Screen (Neg) Ur Amphetamines Screen (Neg) U Benzodiazepines Scrn (Neg) Urine Cocaine Screen (Neg) U Cannabinoids Screen (Neg) Serum Alcohol (0-5) mg/dL Imaging Data Radiologist's impression: Cervical Spine CT 10/03/17 07:06 CONCLUSION: 1. Degenerative changes without fracture or listhesis. Chest X-Ray 10/03/17 07:06 CONCLUSION: 1. No acute cardiopulmonary disease. Head CT 10/03/17 07:06 CONCLUSION: 1. No acute intracranial abnormality. . Chest CT 10/03/17 09:17 CONCLUSION: 1. Prominent right axillary lymph node is identified and nonspecific as to etiology. 2. Hepatic steatosis. Abdomen/Pelvis CT 10/03/17 09:19 CONCLUSION: 1. There are no acute findings. 2. Hepatomegaly and hepatic steatosis. Discharge Plan Discharge Disposition Patient Disposition: 30 Still Patient Discharge Condition Condition: Fair Discharge Details Diagnosis: Urinary tract infection, Encephalopathy, Hypokalemia, Acute renal failure, Rhabdomyolysis, Metabolic acidosis, Sepsis Physicians Team ED Provider: Paul Celis Primary Care Provider: UNKNOWN, Attending Provider: Lee Castañeda Discharge Interventions Interventions: ED Discharge Assessment Last Done: 10/03/17 17:31 Status ED Status: Left Department Discharge Information Discharge Date/Time: 10/03/17 17:32
--- NOTE | 2017-10-03 07:36 | XR ---
EXAM DATE: 10/03/2017 7:32 AM EDT AGE/SEX: 56 years / Female INDICATIONS: Altered mental status, trauma, unable to obtain history. CLINICAL DATA: This is the patient's initial encounter. Patient reports that signs and symptoms have been present for 1 day and indicates a pain score of Nonresponsive. MEDICAL/SURGICAL HISTORY: Hypertension. Thyroid disease. Tonsillectomy. COMPARISON: [facility], CHEST SINGLE AP, 05/25/2017. . FINDINGS: A single AP view of the chest demonstrates the lungs to be symmetrically aerated without evidence of mass, infiltrate or effusion. The cardiomediastinal contours are unremarkable. Osseous structures a re intact. CONCLUSION: 1. No acute cardiopulmonary disease. Electronically signed by: Yoshi Barnes MD 10/03/2017 7:34 AM EDT
[2017-10-03 07:41] LABS: Baso % (Auto) 0.2 % (0.0-2.0); Hematocrit 28.1 % (35.0-46.0); Hemoglobin 9.8 gm/dL (11.6-15.3); Lymph # (Auto) 1.4 th/mm3 (1.0-4.8); Lymph % (Auto) 9.1 % (9.0-44.0); Mean Corpuscular HGB Conc 34.8 % (32.0-36.0); Mean Corpuscular Hemoglobin 36.1 pg (27.0-34.0); Mean Corpuscular Volume 103.8 fL (80.0-100.0); Mean Platelet Volume 8.4 fL (7.0-11.0); Mono % (Auto) 6.4 % (0.0-8.0); Neut # (Auto) 13.5 th/mm3 (1.8-7.7); Neut % (Auto) 84.3 % (16.0-70.0); Platelet Count 187 th/mm3 (150-450); Red Blood Count 2.71 mil/mm3 (4.00-5.30); Red Cell Distribution Width 16.8 % (11.6-17.2); White Blood Count 15.9 th/mm3 (4.0-11.0)
[2017-10-03 07:54] LABS: Activated Partial Thrombo Time 21.9 sec (24.3-30.1); Calcium 8.4 mg/dL (8.5-10.1); Chloride 108 meq/L (98-107); INR 1.3 Ratio; Prothrombin Time 13.4 sec (9.8-11.6); Sodium 145 meq/L (136-145)
[2017-10-03 07:56] LABS: Potassium 2.8 meq/L (3.5-5.1)
[2017-10-03 08:00] LABS: Alanine Aminotransferase 40 U/L (10-53); Albumin 3.5 g/dL (3.4-5.0); Alkaline Phosphatase 163 U/L (45-117); Anion Gap 19 meq/L (5-15); Aspartate Aminotransferase 119 U/L (15-37); Blood Urea Nitrogen 27 mg/dL (7-18); Carbon Dioxide 18.4 meq/L (21.0-32.0); Creatine Kinase 733 U/L (26-192); Glomerular Filtration Rate 15 mL/min (>89); Glucose,Random 122 mg/dL (74-106); Total Protein 8.1 g/dL (6.4-8.2)
--- NOTE | 2017-10-03 08:03 | CT ---
EXAM DATE: 10/03/2017 7:57 AM EDT AGE/SEX: 56 years / Female INDICATIONS: Found on floor lying on top of broken glass. Altered mental status. CLINICAL DATA: This is the patient's initial encounter. Patient reports that signs and symptoms have been present for 1 day and indicates a pain score of Nonresponsive. MEDICAL/SURGICAL HISTORY: None. None. RADIATION DOSE: 52.38 CTDI (mGy) COMPARISON: [facility] [place], CT HEAD W/O CONTRAST, 09/03/2017. . TECHNIQUE: CT of the head without contrast. Using automated exposure control and adjustment of the mA and/or kV according to patient size, radiation dose was kept as low as reasonably achievable to ob tain optimal diagnostic quality images. DICOM format image data is available electronically for revi ew and comparison. FINDINGS: Cerebrum: The ventricles are normal for age. No evidence of midline shift, mass lesion, hemorrhage o r acute infarction. No extraaxial fluid collections are seen. Posterior Fossa: The cerebellum and brainstem are intact. The 4th ventricle is midline. The cerebe llopontine angle is unremarkable. Extracranial: The visualized portion of the orbits is intact. Improved left preseptal hematoma. Skull: The calvaria is intact. No evidence of skull fracture. CONCLUSION: 1. No acute intracranial abnormality. . Electronically signed by: Yoshi Barnes MD 10/03/2017 8:02 AM EDT
[2017-10-03] MEDS ORDERED: Potassium Chlor 20 mEq Premix 20 MEQ/100 ML PIGGYBACK IV.SIG SCH (08:30)
[2017-10-03] MEDS ORDERED: Sod Chloride 0.9% Inj 1,000 ML IV.SIG SCH (08:30)
[2017-10-03] MEDS: Potassium Chlor 10 mEq Premix 10 MEQ/100 ML PIGGYBACK IV.SIG SCH ×4 (08:33→12:34)
[2017-10-03 08:52] LABS: Bilirubin,Urine Negative (Negative); Clarity,Urine Cloudy (Clear); Color,Urine Red (Yellw/Straw); Glucose,Urine (UA) Negative (Negative); Leukocyte Esterase,Urine Small (Negative); Nitrite,Urine Negative (Negative); Specific Gravity,Urine 1.025 (1.002-1.035)
[2017-10-03 08:53] LABS: RBC,Urine Innumerable /hpf (0-3); WBC,Urine 21-50 /hpf (0-5)
[2017-10-03 08:54] LABS: Amorphous Sediment,Urine Few /hpf
[2017-10-03 09:09] LABS: Barbiturate Screen,Urine Neg (Neg); Cocaine Screen,Urine Neg (Neg)
[2017-10-03 09:10] LABS: Amphetamine Screen,Urine Neg (Neg); Cannabinoid Screen,Urine Neg (Neg)
[2017-10-03 09:12] LABS: CKMB Percent 1.8 % (0.0-4.0); Creatine Kinase MB 13.4 ng/mL (0.5-3.6)
[2017-10-03 09:13] LABS: Opiate Screen,Urine Neg (Neg)
--- NOTE | 2017-10-03 09:18 | CT ---
EXAM DATE: 10/03/2017 8:09 AM EDT AGE/SEX: 56 years / Female INDICATIONS: Found on floor lying on top of broken glass. Altered mental status. CLINICAL DATA: This is the patient's initial encounter. Patient reports that signs and symptoms have been present for 1 day and indicates a pain score of Nonresponsive. MEDICAL/SURGICAL HISTORY: None. None. RADIATION DOSE: 26.64 CTDI (mGy) COMPARISON: [facility] [place], CT CERVICAL SPINE W/O CONTRAST, 09/03/2017. . TECHNIQUE: Contiguous axial images were obtained using helical multirow detector technique. The vol umetric data was post-processed with multiplanar reconstruction in oblique axial, sagittal, and coron al planes. Using automated exposure control and adjustment of the mA and/or kV according to patient s ize, radiation dose was kept as low as reasonably achievable to obtain optimal diagnostic quality tim ges. DICOM format image data is available electronically for review and comparison. FINDINGS: Alignment is normal. No prevertebral soft tissue swelling or compression deformity. Multilevel osteop hyte formation is seen greatest at C5. Moderate bilateral facet hypertrophic changes are identified g reatest on the left. The odontoid process is intact. No fractures are seen. Mild diffuse disc bulge i s seen at C5-6 with mild canal narrowing and effacement of the ventral thecal sac. CONCLUSION: 1. Degenerative changes without fracture or listhesis. Electronically signed by: David Reveles MD 10/03/2017 9:17 AM EDT
--- NOTE | 2017-10-03 10:16 | CT ---
EXAM DATE: 10/03/2017 10:01 AM EDT AGE/SEX: 56 years / Female INDICATIONS: Found on floor lying on top of broken glass. Altered mental status. Bruising all over b yenni. CLINICAL DATA: This is the patient's initial encounter. Patient reports that signs and symptoms have been present for 1 day and indicates a pain score of Nonresponsive. MEDICAL/SURGICAL HISTORY: None. None. RADIATION DOSE: 10.63 CTDI (mGy) ; Combined studies COMPARISON: [facility], CHEST 1V SINGLE AP, 10/03/2017. . TECHNIQUE: Multiple contiguous axial images were obtained through the chest without contrast. Image s were obtained in suspended respiration using multiple row detector helical technique. Using automa clinton exposure control and adjustment of the mA and/or kV according to patient size, radiation dose was kept as low as reasonably achievable to obtain optimal diagnostic quality images. DICOM format imag e data is available electronically for review and comparison. FINDINGS: Lungs are clear. No pleural or pericardial effusions are seen. Diffuse decreased density of the liver parenchyma is noted characteristic of steatosis. Bilateral breast implants are noted. There is no ad enopathy in the mediastinum or hilar regions. There is a right axillary lymph node measuring 9.2 mm i n short axis dimension and 1.7 cm in AP dimension which is nonspecific. It is asymmetric from the con tralateral side. There is some motion artifact identified. There are no definite fractures seen. CONCLUSION: 1. Prominent right axillary lymph node is identified and nonspecific as to etiology. 2. Hepatic steatosis. Electronically signed by: David Reveles MD 10/03/2017 10:15 AM EDT
--- NOTE | 2017-10-03 10:19 | CT ---
EXAM DATE: 10/03/2017 10:03 AM EDT AGE/SEX: 56 years / Female INDICATIONS: Found on floor lying on top of broken glass. Altered mental status. Bruising all over b yenni. CLINICAL DATA: This is the patient's initial encounter. Patient reports that signs and symptoms have been present for 1 day and indicates a pain score of Nonresponsive. MEDICAL/SURGICAL HISTORY: None. None. RADIATION DOSE: 10.63 CTDI (mGy) ; Combined studies COMPARISON: [facility], MRCP W/O CONTRAST, 05/27/2017. . TECHNIQUE: Multiple contiguous axial images were obtained through the abdomen. Images were obtained using multiple row detector helical technique. Using automated exposure control and adjustment of the mA and/or kV according to patient size, radiation dose was kept as low as reasonably achievable to o btain optimal diagnostic quality images. DICOM format image data is available electronically for rev iew and comparison. FINDINGS: Lateral breast implants are noted. Hepatomegaly and hepatic steatosis noted. Gallbladder, kidneys, ad renal glands, spleen, pancreas unremarkable. There is motion artifact seen. Urinary bladder uterus an d ovaries are normal in appearance. There are no dilated loops of bowel seen to suggest obstruction. There is no aneurysm or adenopathy. Lung bases are clear. Review of bone windows demonstrate no acute findings. There is a remote fracture off the tip of the right L4 transverse process. There is a ash te superior endplate concavity at L5 believed to be related to a Schmorl node. CONCLUSION: 1. There are no acute findings. 2. Hepatomegaly and hepatic steatosis. Electronically signed by: David Reveles MD 10/03/2017 10:18 AM EDT
[2017-10-03] MEDS ORDERED: Bisacodyl 10 MG Supp RECTAL PRN (10:46)
[2017-10-03] MEDS: Sod Chloride 0.9% Inj 1,000 ML IV.CONT SCH ×2 (11:08→21:20)
--- NOTE | 2017-10-03 16:24 | ECG ---
Date Performed: 10/03/2017 Time Performed: 07:35:39 PTAGE: 56 years EKG: Sinus rhythm BORDERLINE LEFT AXIS DEVIATION POSSIBLE RIGHT VENTRICULAR CONDUCTION DELAY NONSPECIFIC ST & T-WAVE A BNORMALITY Since the previous tracing, no significant change noted BORDERLINE ECG PREVIOUS TRACING : 05/25/2017 11.24 DOCTOR: Shon Toure Interpretating Date/Time 10/03/2017 16:20:06
[2017-10-03] MEDS ORDERED: Haloperidol Inj 5 MG/ML Ampul IV.PUSH PRN (18:28)
[2017-10-03] MEDS ORDERED: LORazepam 1 MG Tablet PO PRN (18:28)
--- NOTE | 2017-10-03 18:41 | P.HP ---
History of Present Illness Primary Care Physician: UNKNOWN Chief Complaint: Altered mentation History of Present Illness: 56-year-old female with known history of alcohol abuse, hypothyroidism, chronic back pain who currently cannot give much information in regards to her medical condition. Patient only continues to reiterate I felt, I tripped, pretty much with all questions answered as were the same. That she tripped and fell. ER documentation indicates that apparently the daughter have been trying to contact her since 2 in the morning and examined able to get through to her so she called 911 who presented to the patient's house and found last room and about the room and the patient have been down on the ground for unknown period. Patient was brought to the emergency department found to have multiple medical problems to include encephalopathy, acute renal failure, rhabdomyolysis. Patient does indicate that she quit drinking 5 days ago. Nursing staff indicates that the daughter also indicates that the patient has history of alcoholic benders and possibly her last drink was Monday. - Diagnosis (1) Sepsis (2) Encephalopathy (3) Leukocytosis (4) Urinary tract infection (5) Hypokalemia (6) Acute renal failure (7) Rhabdomyolysis (8) Metabolic acidosis Inpatient Certification: I certify that the inpatient services were ordered in accordance with Medicare regulations governing the order. This includes certification that hospital inpatient services are reasonable and necessary and in the case of services not specified as inpatient-only under 42 CFR 419.22(n), that they are appropriately provided as inpatient services in accordance to with the 2-midnight benchmark under 43 CFR 412.3(e) Estimated Total Length of Stay (Days): 3 Plans for Post Hospital Care: Home Review of Systems unobtainable due to mental status PMFSH - History History Provided By: Family Member - Medical History Medical History: Medical History (Last Updated 10/03/17 @ 18:16 by SHAMA Velásquez) Alcohol abuse Chronic back pain Depression Hypertension Hypothyroidism - Surgical History Surgical History: Surgical History (Last Updated 10/03/17 @ 18:14 by SHAMA Velásquez) History of esophagogastroduodenoscopy (EGD) History of tonsillectomy H/O breast augmentation - Family History Family History: Family History (Last Updated 10/03/17 @ 18:16 by SHAMA Velásquez) Other Unknown family medical history - Tobacco History Second Hand Smoke Exposure: No Smoking Status: Former smoker - Alcohol History How Often Do You Have a Drink Containing Alcohol: 4 or more times a week - Substance Use History Substance History: No History of Abuse - Substance Use Type Alcohol Status: Active Route Used: By Mouth - Immunization History Tetanus Immunization: Unable to Assess Tetanus Immunization Year if Known: 2016 Hx Influenza Vaccine This Season: Unable to Assess Medications and Allergies Active Medications: Active Medications Acetaminophen (Tylenol) 650 mg PO Q4H PRN PRN Reason: Headache, fever, pain 1-5 Al Hydroxide/Mg Hydroxide (Milk Of Magnesia Liq) 30 ml PO Q12H PRN PRN Reason: Mild Constipation Bisacodyl (Dulcolax Supp) 10 mg RECTAL DAILY PRN PRN Reason: SEVERE CONSITIPATION Sodium Chloride (Ns Inj) 1,000 mls @ 0 mls/hr IV.SIG [facility]US [facility] Last Infusion: 10/03/17 09:35 Dose: Infused Sodium Chloride (Ns Inj) 1,000 mls @ 100 mls/hr IV.CONT .Q10H [place] Last Admin: 10/03/17 11:08 Dose: 100 mls/hr Lactulose (Lactulose Liq) 30 ml PO DAILY PRN PRN Reason: SEVERE CONSITIPATION Ondansetron HCl (Zofran Inj) 4 mg IV.PUSH Q6H PRN PRN Reason: NAUSEA OR VOMITING Sennosides (Senokot) 17.2 mg PO Q12H PRN PRN Reason: Moderate Constipation Sodium Chloride (Ns Flush) 2 ml IV.FLUSH PRN PRN PRN Reason: FLUSH AFTER USING IV ACCESS Allergies Allergy/AdvReac Type Severity Reaction Status Date / Time No Known Allergies Allergy Unverified 10/03/17 07:09 Home Medications Medication Instructions Recorded Confirmed Type Unable to Obtain Home Meds 10/03/17 10/03/17 History Exam Vital signs: Vital Signs 10/03/17 07:01 10/03/17 07:10 10/03/17 08:35 Temperature 98.2 F Pulse Rate 76 83 Respiratory Rate 15 15 Blood Pressure 150/104 H 128/70 Pulse Oximetry 94 L 97 98 10/03/17 09:35 10/03/17 11:12 10/03/17 12:34 Temperature Pulse Rate 87 70 75 Respiratory Rate 15 18 18 Blood Pressure 114/65 123/77 132/73 Pulse Oximetry 100 10/03/17 13:47 10/03/17 14:00 10/03/17 14:05 Temperature 98.7 F Pulse Rate 77 80 72 Respiratory Rate 30 H 26 H Blood Pressure 131/63 147/73 H 167/78 H Pulse Oximetry 10/03/17 15:00 10/03/17 15:33 10/03/17 16:00 Temperature Pulse Rate 94 H 60 Respiratory Rate 25 H Blood Pressure 120/70 135/75 Pulse Oximetry 97 10/03/17 16:21 10/03/17 17:00 Temperature Pulse Rate 60 60 Respiratory Rate Blood Pressure 153/72 H 131/74 Pulse Oximetry Intake & Output 10/02/17 10/03/17 10/03/17 18:59 06:59 18:59 Intake Total 1601 / 1601 Balance 1601 / 1601 Weight 130 kg Intake: IV 1601 / 1601 KCl 10 mEq Premix Inj 10 meq In 400 / 400 100 ml @ 100 mls/hr IV.SIG Q1H [place] Rx#:[id number] NS Inj 1,000 ML @ Wide Open IV. 1000 / 1000 SIG BOLUS [place]IS[place] Rx#:[id number] Thiamine Inj 100 MG In NS Inj 101 / 101 100 ML @ 100 mls/hr IV.SIG ONCE ONE Rx#:[id number] Rocephin Inj 1,000 MG In NS Inj 100 / 100 100 ML @ 200 mls/hr IV.SIG ONCE ONE Rx#:[id number] Narrative: GENERAL: Well-developed, cachectic, in no acute distress. Patient is awake however she does not obviously have any orientation at this time. She just keeps reiterating the same thing over and over being that she tripped and fell. HEENT: Head is normocephalic patient has multiple bruises along and over her forehead. Facial features are symmetric. Eyes: Pupils equal round reactive to light. Extraocular muscles are intact. Conjunctivae were clear. Oropharyngeal: Patient's lips appear to be very cracked with dried blood noted on the upper and lower lips. Pharynx without any erythema edema. Tongue is midline without deviation. Buccal mucosa is moist without any masses or lesions NECK: Supple without any masses. Trachea midline no deviation. No JVD, no bruits are appreciated CARDIAC: Regular rhythm, regular rate. S1/S2 are heard. No murmurs gallops or rubs. LUNGS: Clear to auscultation bilaterally. No wheeze, rhonchi or rales. No use of accessory muscles on inspiration or expiration. ABDOMEN: Soft, nontender. Nondistended. Bowel sounds heard in all 4 quadrants. No organomegaly or masses. Negative rebound, negative guarding EXTREMITIES: No edema, pulses are equal bilaterally. No cyanosis or clubbing NEUROLOGY: Mood and affect appear appropriate. Cranial nerves II through XII grossly intact. Muscle strength 5/5 in upper and lower extremities bilaterally. Deep tendon reflexes are 2+ in upper and lower extremities bilaterally. SKIN: Patient does have multiple bruises strewn throughout her whole body with multiple bruises measuring approximately 2-3 cm around both of her knees in the. She does have a rather significant bruise on her right hip area. Bruises across her forehead. Bruises on her arms. Results - Labs CBC & Chem 7: 10/03/17 07:30 10/03/17 07:30 Labs: Laboratory Results - last 24 hr 10/03/17 10/03/17 10/03/17 07:30 07:30 07:30 CBC w Diff Auto diff final WBC 15.9 H RBC 2.71 L Hgb 9.8 L Hct 28.1 L MCV 103.8 H MCH 36.1 H MCHC 34.8 RDW 16.8 Plt Count 187 D MPV 8.4 Neut % (Auto) 84.3 H Lymph % (Auto) 9.1 [place] % (Auto) 6.4 Eos % (Auto) 0.0 Baso % (Auto) 0.2 Neut # (Auto) 13.5 H Lymph # (Auto) 1.4 [place] # (Auto) 1.0 H Eos # (Auto) 0.0 Baso # (Auto) 0.0 WBC Differential . Differential Comment . PT 13.4 H INR 1.3 APTT 21.9 L Sodium 145 Potassium 2.8 L* Chloride 108 H Carbon Dioxide 18.4 L Anion Gap 19 H BUN 27 H Creatinine 3.30 H Estimated GFR 15 L POC Glucose Random Glucose 122 H Lactic Acid Calcium 8.4 L Total Bilirubin 1.3 H AST 119 H ALT 40 Alkaline Phosphatase 163 H Ammonia Total Creatine Kinase 733 H CK-MB (CK-2) 13.4 H CK-MB (CK-2) % 1.8 Troponin I Less than 0.02 L Total Protein 8.1 Albumin 3.5 TSH 8.410 H Ur Collection Type Urine Color Urine Clarity Urine pH Ur Specific [place] Urine Protein Urine Glucose (UA) Urine Ketones Urine Occult Blood Urine Nitrate Urine Bilirubin Urine Urobilinogen Ur Leukocyte Esterase Urine RBC Urine WBC Ur Transition Epith Cell Ur Renal Epithelial Cell Amorphous Sediment Micro UA Comment Ur Microscopic Review Urine Culture Comments Urine Opiates Screen Ur Barbiturates Screen Ur Amphetamines Screen U Benzodiazepines Scrn Urine Cocaine Screen U Cannabinoids Screen Serum Alcohol Less than 3 10/03/17 10/03/17 10/03/17 07:30 07:30 07:38 CBC w Diff WBC RBC Hgb Hct MCV MCH MCHC RDW Plt Count MPV Neut % (Auto) Lymph % (Auto) [place] % (Auto) Eos % (Auto) Baso % (Auto) Neut # (Auto) Lymph # (Auto) [place] # (Auto) Eos # (Auto) Baso # (Auto) WBC Differential Differential Comment PT INR APTT Sodium Potassium Chloride Carbon Dioxide Anion Gap BUN Creatinine Estimated GFR POC Glucose 146 H Random Glucose Lactic Acid 1.6 Calcium Total Bilirubin AST ALT Alkaline Phosphatase Ammonia 35 H Total Creatine Kinase CK-MB (CK-2) CK-MB (CK-2) % Troponin I Total Protein Albumin TSH Ur Collection Type Urine Color Urine Clarity Urine pH Ur Specific [place] Urine Protein Urine Glucose (UA) Urine Ketones Urine Occult Blood Urine Nitrate Urine Bilirubin Urine Urobilinogen Ur Leukocyte Esterase Urine RBC Urine WBC Ur Transition Epith Cell Ur Renal Epithelial Cell Amorphous Sediment Micro UA Comment Ur Microscopic Review Urine Culture Comments Urine Opiates Screen Ur Barbiturates Screen Ur Amphetamines Screen U Benzodiazepines Scrn Urine Cocaine Screen U Cannabinoids Screen Serum Alcohol 10/03/17 10/03/17 08:05 08:05 CBC w Diff WBC RBC Hgb Hct MCV MCH MCHC RDW Plt Count MPV Neut % (Auto) Lymph % (Auto) [place] % (Auto) Eos % (Auto) Baso % (Auto) Neut # (Auto) Lymph # (Auto) [place] # (Auto) Eos # (Auto) Baso # (Auto) WBC Differential Differential Comment PT INR APTT Sodium Potassium Chloride Carbon Dioxide Anion Gap BUN Creatinine Estimated GFR POC Glucose Random Glucose Lactic Acid Calcium Total Bilirubin AST ALT Alkaline Phosphatase [place] Total Creatine Kinase CK-MB (CK-2) CK-MB (CK-2) % Troponin I Total Protein Albumin TSH Ur Collection Type Cath Urine Color Red H Urine Clarity Cloudy H Urine pH 6.0 Ur Specific [place] 1.025 Urine Protein 300 or greater H Urine Glucose (UA) Negative Urine Ketones 15 H Urine Occult Blood Large H Urine Nitrate Negative Urine Bilirubin Negative Urine Urobilinogen 1.0 Ur Leukocyte Esterase Small H Urine RBC Innumerable H Urine WBC 21-50 H Ur Transition Epith Cell 1-5 H Ur Renal Epithelial Cell 6-10 H Amorphous Sediment Few H Micro UA Comment Cath-culture ind Ur Microscopic Review Microscopic reviewed Urine Culture Comments Cath-cult indicated Urine Opiates Screen Neg Ur Barbiturates Screen Neg Ur Amphetamines Screen Neg U Benzodiazepines Scrn Neg Urine Cocaine Screen Neg U Cannabinoids Screen Neg Serum Alcohol - Imaging Impressions Cervical Spine CT 10/03/17 07:06 CONCLUSION: 1. Degenerative changes without fracture or listhesis. Chest X-Ray 10/03/17 07:06 CONCLUSION: 1. No acute cardiopulmonary disease. Head CT 10/03/17 07:06 CONCLUSION: 1. No acute intracranial abnormality. . Chest CT 10/03/17 09:17 CONCLUSION: 1. Prominent right axillary lymph node is identified and nonspecific as to etiology. 2. Hepatic steatosis. Abdomen/Pelvis CT 10/03/17 09:19 CONCLUSION: 1. There are no acute findings. 2. Hepatomegaly and hepatic steatosis. Caprini VTE Risk Assessment Caprini VTE Risk Assessment: Moderate/High Risk (score >= 2) Caprini Risk Assessment Model: Point Value = 1 Point Value = 2 Point Value = 3 Point Value = 5 Age 41-60 Minor surgery BMI > 25 kg/m2 Swollen legs Varicose veins or History of unexplained or recurrent spontaneous Oral contraceptives or hormone replacement Sepsis (< 1 month) Serious lung disease, including pneumonia (< 1 month) Abnormal pulmonary function Acute myocardial infarction Congestive heart failure (< 1 month) History of inflammatory bowel disease Medical patient at bed rest Age 61-74 Arthroscopic surgery Major open surgery (> 45 min) Laparoscopic surgery (> 45 min) Malignancy Confined to bed (> 72 hours) Immobilizing plaster cast Central venous access Age >= 75 History of VTE Family history of VTE Factor V Leiden Prothrombin [id number] Lupus anticoagulant Anticardiolipin antibodies Elevated serum homocysteine Heparin-induced thrombocytopenia Other congenital or acquired thrombophilia Stroke (< 1 month) Elective arthroplasty Hip, pelvis, or leg fracture Acute spinal cord injury (< 1 month) Prophylaxis Regimen: Total Risk Factor Score Risk Level Prophylaxis Regimen 0-1 Low Early ambulation 2 Moderate Order ONE of the following: *Sequential Compression Device (SCD) *Heparin 5000 units SQ BID 3-4 Higher Order ONE of the following medications: *Heparin 5000 units SQ TID *Enoxaparin/Lovenox 40 mg SQ daily (WT < 150 kg, CrCl > 30 mL/min) *Enoxaparin/Lovenox 30 mg SQ daily (WT < 150 kg, CrCl > 10-29 mL/min) *Enoxaparin/Lovenox 30 mg SQ BID (WT < 150 kg, CrCl > 30 mL/min) AND/OR *Sequential Compression Device (SCD) 5 or more Highest Order ONE of the following medications: *Heparin 5000 units SQ TID (Preferred with Epidurals) *Enoxaparin/Lovenox 40 mg SQ daily (WT < 150 kg, CrCl > 30 mL/min) *Enoxaparin/Lovenox 30 mg SQ daily (WT < 150 kg, CrCl > 10-29 mL/min) *Enoxaparin/Lovenox 30 mg SQ BID (WT < 150 kg, CrCl > 30 mL/min) AND *Sequential Compression Device (SCD) Assessment and Plan - Assessment (1) Sepsis Code(s): A41.9 - Sepsis, unspecified organism Status: Acute (2) Encephalopathy Code(s): G93.40 - Encephalopathy, unspecified Status: Acute (3) Leukocytosis Code(s): D72.829 - Elevated white blood cell count, unspecified Status: Acute (4) Urinary tract infection Code(s): N39.0 - Urinary tract infection, site not specified Status: Acute (5) Hypokalemia Code(s): E87.6 - Hypokalemia Status: Acute (6) Acute renal failure Code(s): N17.9 - Acute kidney failure, unspecified Status: Acute (7) Rhabdomyolysis Code(s): M62.82 - Rhabdomyolysis Status: Acute (8) Metabolic acidosis Code(s): E87.2 - Acidosis Status: Acute - Plan Sepsis -Patient meets criteria with leukocytosis, tachypnea, urinary tract infection -Patient was given Rocephin emergency department will continue that at this time -Continue follow urine culture for appropriate antibiotics -Chest x-ray does not indicate acute abnormality -Blood cultures are pending Encephalopathy, likely metabolic/hepatic from alcohol withdrawal -CT the brain did not indicate any acute abnormality -Laboratory studies indicate significant abnormalities to include acute renal failure, elevated ammonia level, elevated liver enzymes, rhabdomyolysis -Continue to monitor neurological function every 2 hours -Give lactulose 30 mL 1 -CIWA protocol Acute renal failure -Likely secondary to dehydration, rhabdomyolysis -continue IV hydration -CT the abdomen does not indicate any acute findings or obstructive process -Monitor renal function -Avoid nephrotoxins Metabolic acidosis -Likely secondary to renal failure, -Continue to follow anion gap -If no significant improvement may need sodium bicarb Rhabdomyolysis -Probably secondary to patient being down for prolonged period of time -Continue IV hydration, encourage p.o. intake -Monitor CPK level Elevated liver enzymes, hyperbilirubinemia -Likely due to chronic alcoholism -CT scan does show hepatomegaly with hepatic steatosis -Continue to follow liver enzymes Hypokalemia -Continue monitor and replete as needed Hypothyroidism -Patient was elevated TSH 8.4, previous TSH on 05/25 was 6.2 -Patient likely noncompliant with her medications DVT prevention -Sequential compression devices
[2017-10-03] MEDS ORDERED: hydrALAZINE HCl Inj 20 MG/ML Vial IV.PUSH PRN (18:42)
[2017-10-03 19:57] LABS: Calcium 7.7 mg/dL (8.5-10.1); Carbon Dioxide 18.1 meq/L (21.0-32.0); Potassium 3.7 meq/L (3.5-5.1)
[2017-10-03 20:17] LABS: CKMB Percent 1.4 % (0.0-4.0); Creatine Kinase MB 9.8 ng/mL (0.5-3.6)
[2017-10-03 22:41] LABS: Free T4 (Free Thyroxine) 1.07 ng/dL (0.76-1.46); Triiodothyronine (T3) Free 1.83 pg/mL (2.18-3.98)
[2017-10-04] MEDS: Sod Chloride 0.9% Inj 1,000 ML IV.CONT SCH ×2 (04:53→12:43)
[2017-10-04 05:12] LABS: Baso % (Auto) 0.4 % (0.0-2.0); Eos % (Auto) 0.2 % (0.0-4.0); Hematocrit 25.5 % (35.0-46.0); Hemoglobin 8.3 gm/dL (11.6-15.3); Lymph # (Auto) 1.5 th/mm3 (1.0-4.8); Lymph % (Auto) 24.6 % (9.0-44.0); Mean Corpuscular HGB Conc 32.7 % (32.0-36.0); Mean Corpuscular Hemoglobin 34.5 pg (27.0-34.0); Mean Corpuscular Volume 105.4 fL (80.0-100.0); Mono # (Auto) 0.6 th/mm3 (0.0-0.9); Mono % (Auto) 9.5 % (0.0-8.0); Neut # (Auto) 4.1 th/mm3 (1.8-7.7); Neut % (Auto) 65.3 % (16.0-70.0); Platelet Count 155 th/mm3 (150-450); Red Blood Count 2.42 mil/mm3 (4.00-5.30); Red Cell Distribution Width 16.6 % (11.6-17.2); White Blood Count 6.2 th/mm3 (4.0-11.0)
[2017-10-04 05:30] LABS: Albumin 2.7 g/dL (3.4-5.0); Calcium 7.3 mg/dL (8.5-10.1); Carbon Dioxide 19.1 meq/L (21.0-32.0); Total Protein 6.7 g/dL (6.4-8.2)
[2017-10-04 05:35] LABS: Potassium 2.4 meq/L (3.5-5.1)
[2017-10-04 05:53] LABS: CKMB Percent 1.3 % (0.0-4.0); Creatine Kinase MB 5.8 ng/mL (0.5-3.6)
[2017-10-04 05:56] LABS: Magnesium 1.6 mg/dL (1.5-2.5)
[2017-10-04] MEDS: Folic Acid 1 MG Tablet PO SCH (09:19)
[2017-10-04] MEDS: Potassium Chloride 25 MEQ Effervescent Tablet PO SCH ×2 (09:20→12:43)
[2017-10-04] MEDS: Potassium Chlor 20 mEq Premix 20 MEQ/100 ML PIGGYBACK IV.SIG SCH ×2 (10:18→16:44)
--- NOTE | 2017-10-04 13:00 | P.PN ---
Subjective Interval history: 56-year-old female who is seen and examined today for follow-up on altered mental status, alcohol withdrawal. Patient appears to be little more alert today than she was yesterday. Able to answer more questions. However still appears to be a little off with her timeframe. Vital signs are stable, patient remains afebrile. Physical Exam Vital signs: Vital Signs 10/03/17 13:47 10/03/17 14:00 10/03/17 14:05 Temperature 98.7 F Pulse Rate 77 80 72 Respiratory Rate 30 H 26 H Blood Pressure 131/63 147/73 H 167/78 H Pulse Oximetry 10/03/17 15:00 10/03/17 15:33 10/03/17 16:00 Temperature Pulse Rate 94 H 60 Respiratory Rate 25 H Blood Pressure 120/70 135/75 Pulse Oximetry 97 10/03/17 16:21 10/03/17 17:00 10/03/17 19:00 Temperature Pulse Rate 60 60 72 Respiratory Rate 33 H Blood Pressure 153/72 H 131/74 126/71 Pulse Oximetry 98 10/03/17 19:35 10/03/17 20:00 10/03/17 21:00 Temperature 98.3 F Pulse Rate 72 60 Respiratory Rate 16 16 Blood Pressure 149/87 H 113/66 Pulse Oximetry 98 99 98 10/03/17 22:00 10/03/17 23:00 10/04/17 00:00 Temperature 98 F Pulse Rate 62 58 L 54 L Respiratory Rate 16 11 L 10 L Blood Pressure 114/68 109/68 102/70 Pulse Oximetry 97 100 10/04/17 01:00 10/04/17 02:00 10/04/17 03:00 Temperature Pulse Rate 56 L 52 L 54 L Respiratory Rate 11 L 18 16 Blood Pressure 117/68 118/77 135/79 Pulse Oximetry 100 100 100 10/04/17 04:00 10/04/17 05:00 10/04/17 08:00 Temperature 97.4 F L Pulse Rate 61 72 58 L Respiratory Rate 16 16 Blood Pressure 111/74 127/88 97/53 L Pulse Oximetry 100 100 98 10/04/17 09:00 Temperature 98.6 F Pulse Rate Respiratory Rate Blood Pressure Pulse Oximetry Intake & Output 10/03/17 10/04/17 10/04/17 18:59 06:59 18:59 Intake Total 1601 / 1601 3800 / 3800 1460 / 1460 Output Total 500 / 500 Balance 1601 / 1601 3300 / 3300 1460 / 1460 Weight 130 kg Intake: IV 1601 / 1601 1999 / 1999 1100 / 1100 NS Inj 1,000 ML @ 150 mls/hr IV 1999 / 1999 1000 / 1000 .CONT .Q6H40M [facility] Rx#: [id number] KCl 10 mEq Premix Inj 10 meq In 400 / 400 100 ml @ 100 mls/hr IV.SIG Q1H [facility] Rx#:[id number] NS Inj 1,000 ML @ Wide Open IV. 1000 / 1000 SIG BOLUS [facility] Rx#:[id number] Thiamine Inj 100 MG In NS Inj 101 / 101 100 ML @ 100 mls/hr IV.SIG ONCE ONE Rx#:[id number] Rocephin Inj 1,000 MG In NS Inj 100 / 100 100 / 100 100 ML @ 200 mls/hr IV.SIG Q24H [facility] Rx#:[id number] Oral 420 / 420 360 / 360 Other 1380 / 1380 Output: Urine 500 / 500 Other: # Bowel Movements 0 Narrative: GENERAL: Well-developed, cachectic, in no acute distress. Patient is more alert today, still having difficulty with time placement. HEENT: Head is normocephalic patient has multiple bruises along and over her forehead. Facial features are symmetric. Eyes: Extraocular muscles are intact. Conjunctivae were clear. Oropharyngeal: Patient's lips appear to be very cracked with dried blood noted on the upper and lower lips. NECK: Supple without any masses. Trachea midline no deviation. No JVD, CARDIAC: Regular rhythm, regular rate. S1/S2 are heard. No murmurs gallops or rubs. LUNGS: Clear to auscultation bilaterally. No wheeze, rhonchi or rales. No use of accessory muscles on inspiration or expiration. ABDOMEN: Soft, nontender. Nondistended. Bowel sounds heard in all 4 quadrants. No organomegaly or masses. Negative rebound, negative guarding EXTREMITIES: No edema, pulses are equal bilaterally. No cyanosis or clubbing NEUROLOGY: Mood and affect appear appropriate. Cranial nerves II through XII grossly intact. Muscle strength 5/5 in upper and lower extremities bilaterally. Deep tendon reflexes are 2+ in upper and lower extremities bilaterally. SKIN: Patient does have multiple bruises strewn throughout her whole body with multiple bruises measuring approximately 2-3 cm around both of her knees in the. She does have a rather significant bruise on her right hip area. Bruises across her forehead. Bruises on her arms. - Urinary Catheter Management Straight Cath placed during this visit: yes Reason for continuing: Not indwelling catheter Insertion date: 10/03/17 Insertion time: 08:05 Results - Labs CBC & Chem 7: 10/04/17 05:00 10/04/17 05:00 Laboratory Results - last 24 hr 10/03/17 10/03/17 10/04/17 19:15 19:15 02:46 CBC w Diff WBC RBC Hgb Hct MCV MCH MCHC RDW Plt Count MPV Neut % (Auto) Lymph % (Auto) [place] % (Auto) Eos % (Auto) Baso % (Auto) Neut # (Auto) Lymph # (Auto) [place] # (Auto) Eos # (Auto) Baso # (Auto) WBC Differential Differential Comment Sodium 149 H Potassium 3.7 D Chloride 115 H Carbon Dioxide 18.1 L Anion Gap 16 H BUN 25 H Creatinine 2.10 H Estimated GFR 25 L POC Glucose 76 Random Glucose 77 Calcium 7.7 L Prot Corrected Calcium Magnesium Total Bilirubin AST ALT Alkaline Phosphatase Ammonia Total Creatine Kinase 698 H CK-MB (CK-2) 9.8 H CK-MB (CK-2) % 1.4 Total Protein Albumin Free T4 1.07 Free T3 1.83 L 10/04/17 10/04/17 10/04/17 05:00 05:00 05:00 CBC w Diff Auto diff final WBC 6.2 D RBC 2.42 L Hgb 8.3 L Hct 25.5 L MCV 105.4 H MCH 34.5 H MCHC 32.7 RDW 16.6 Plt Count 155 MPV 7.0 Neut % (Auto) 65.3 Lymph % (Auto) 24.6 [place] % (Auto) 9.5 H Eos % (Auto) 0.2 Baso % (Auto) 0.4 Neut # (Auto) 4.1 Lymph # (Auto) 1.5 [place] # (Auto) 0.6 Eos # (Auto) 0.0 Baso # (Auto) 0.0 WBC Differential . Differential Comment . Sodium 149 H Potassium 2.4 L* D Chloride 117 H Carbon Dioxide 19.1 L Anion Gap 13 BUN 21 H Creatinine 1.30 H Estimated GFR 43 L POC Glucose Random Glucose 80 Calcium 7.3 L* Prot Corrected Calcium 7.5 L Magnesium 1.6 Total Bilirubin 1.0 AST 108 H ALT 34 Alkaline Phosphatase 131 H Ammonia 42 H Total Creatine Kinase 444 H CK-MB (CK-2) 5.8 H CK-MB (CK-2) % 1.3 Total Protein 6.7 D Albumin 2.7 L D Free T4 Free T3 10/04/17 10/04/17 07:47 11:49 CBC w Diff WBC RBC Hgb Hct MCV MCH MCHC RDW Plt Count MPV Neut % (Auto) Lymph % (Auto) [place] % (Auto) Eos % (Auto) Baso % (Auto) Neut # (Auto) Lymph # (Auto) [place] # (Auto) Eos # (Auto) Baso # (Auto) WBC Differential Differential Comment Sodium Potassium Chloride Carbon Dioxide Anion Gap BUN Creatinine Estimated GFR POC Glucose 87 102 Random Glucose Calcium Prot Corrected Calcium Magnesium Total Bilirubin AST ALT Alkaline Phosphatase Ammonia Total Creatine Kinase CK-MB (CK-2) CK-MB (CK-2) % Total Protein Albumin Free T4 Free T3 Microbiology 10/03/17 09:40 Blood - Peripheral Aerobic Blood Culture - Preliminary No growth in 1 day 10/03/17 09:40 Blood - Peripheral Anaerobic Blood Culture - Preliminary No growth in 1 day 10/03/17 09:30 Blood - Peripheral Aerobic Blood Culture - Preliminary No growth in 1 day 10/03/17 09:30 Blood - Peripheral Anaerobic Blood Culture - Preliminary No growth in 1 day Assessment and Plan - Assessment (1) Sepsis Code(s): A41.9 - Sepsis, unspecified organism Status: Acute (2) Encephalopathy Code(s): G93.40 - Encephalopathy, unspecified Status: Acute (3) Leukocytosis Code(s): D72.829 - Elevated white blood cell count, unspecified Status: Acute (4) Urinary tract infection Code(s): N39.0 - Urinary tract infection, site not specified Status: Acute (5) Hypokalemia Code(s): E87.6 - Hypokalemia Status: Acute (6) Acute renal failure Code(s): N17.9 - Acute kidney failure, unspecified Status: Acute (7) Rhabdomyolysis Code(s): M62.82 - Rhabdomyolysis Status: Acute (8) Metabolic acidosis Code(s): E87.2 - Acidosis Status: Acute - Plan Sepsis -Patient meets criteria with leukocytosis, tachypnea, urinary tract infection -Patient was given Rocephin emergency department will continue that at this time -Continue follow urine culture for appropriate antibiotics -Chest x-ray does not indicate acute abnormality -Blood cultures are negative for 1 day Encephalopathy, likely metabolic/hepatic from alcohol withdrawal, improving -CT the brain did not indicate any acute abnormality -Laboratory studies indicate significant abnormalities to include acute renal failure, elevated ammonia level, elevated liver enzymes, rhabdomyolysis -Continue to monitor neurological function every 2 hours -Start lactulose 30 mL's twice daily -[facility] protocol Acute renal failure, improving -Likely secondary to dehydration, rhabdomyolysis -Improving significantly with IV hydration -CT the abdomen does not indicate any acute findings or obstructive process -Monitor renal function -Avoid nephrotoxins Metabolic acidosis, resolved -Likely secondary to renal failure, -Continue to follow anion gap -If no significant improvement may need sodium bicarb Rhabdomyolysis, improving -Probably secondary to patient being down for prolonged period of time -Continue IV hydration, encourage p.o. intake -Monitor CPK level Elevated liver enzymes, hyperbilirubinemia, improving -Likely due to chronic alcoholism -CT scan does show hepatomegaly with hepatic steatosis -Continue to follow liver enzymes Hypokalemia -Continue monitor and replete as needed Hypothyroidism -Patient was elevated TSH 8.4, previous TSH on 05/25 was 6.2 -Patient likely noncompliant with her medications -Start levothyroxine 25 mcg daily DVT prevention -Sequential compression devices
[2017-10-04] MEDS: Potassium Chlor 10 mEq Premix 10 MEQ/100 ML PIGGYBACK IV.SIG SCH ×5 (18:03→21:25)
[2017-10-05 04:57] LABS: Baso % (Auto) 0.5 % (0.0-2.0); Eos # (Auto) 0.1 th/mm3 (0.0-0.4); Eos % (Auto) 0.9 % (0.0-4.0); Hematocrit 25.2 % (35.0-46.0); Hemoglobin 8.4 gm/dL (11.6-15.3); Lymph # (Auto) 1.8 th/mm3 (1.0-4.8); Lymph % (Auto) 31.4 % (9.0-44.0); Mean Corpuscular HGB Conc 33.1 % (32.0-36.0); Mean Corpuscular Hemoglobin 34.7 pg (27.0-34.0); Mean Corpuscular Volume 104.8 fL (80.0-100.0); Mean Platelet Volume 7.4 fL (7.0-11.0); Mono # (Auto) 0.8 th/mm3 (0.0-0.9); Mono % (Auto) 13.9 % (0.0-8.0); Neut # (Auto) 2.9 th/mm3 (1.8-7.7); Neut % (Auto) 53.3 % (16.0-70.0); Platelet Count 189 th/mm3 (150-450); Red Blood Count 2.41 mil/mm3 (4.00-5.30); Red Cell Distribution Width 16.1 % (11.6-17.2); White Blood Count 5.6 th/mm3 (4.0-11.0)
[2017-10-05] MEDS: Acetaminophen 325 MG Tablet PO PRN (05:16)
[2017-10-05 06:01] LABS: Albumin 2.6 g/dL (3.4-5.0); Calcium 7.2 mg/dL (8.5-10.1); Potassium 3.4 meq/L (3.5-5.1); Total Protein 6.5 g/dL (6.4-8.2)
[2017-10-05 06:30] LABS: CKMB Percent 0.8 % (0.0-4.0); Creatine Kinase MB 2.1 ng/mL (0.5-3.6)
[2017-10-05] MEDS: Folic Acid 1 MG Tablet PO SCH (09:31)
--- NOTE | 2017-10-05 14:53 | P.PN ---
Subjective Interval history: 56-year-old female who is seen and examined today for follow-up on multiple medical issues secondary to alcohol abuse, withdrawal. Patient is doing much better. She is out of bed at this time. She is able speak in full sentences. She still required Ativan last night for a CIWA of 9. Vital signs are stable. Patient remains afebrile Physical Exam Vital signs: Vital Signs 10/04/17 16:00 10/04/17 19:46 10/04/17 20:00 Temperature 98.7 F 99.1 F Pulse Rate 58 L 100 H Respiratory Rate 18 Blood Pressure 136/87 Pulse Oximetry 98 100 10/05/17 00:00 10/05/17 04:00 10/05/17 07:52 Temperature 98.8 F 98.3 F Pulse Rate 80 67 Respiratory Rate 16 16 Blood Pressure 134/87 Pulse Oximetry 99 99 100 10/05/17 08:00 Temperature Pulse Rate 58 L Respiratory Rate Blood Pressure Pulse Oximetry 98 Intake & Output 10/04/17 10/05/17 10/05/17 18:59 06:59 18:59 Intake Total 4240 / 4240 2019 / 2019 1000 / 1000 Output Total 2700 / 2700 1999 Balance 1540 / 1540 20 / 20 1000 / 1000 Intake: IV 1300 / 1300 1300 / 1300 1000 / 1000 NS + KCl 20 mEq Inj 1,000 ML @ 1000 / 1000 1000 / 1000 125 mls/hr IV.CONT .Q8H [facility] Rx# :[id number] NS Inj 1,000 ML @ 150 mls/hr IV 1000 / 1000 .CONT .Q6H40M [facility] Rx#: [id number] KCl 10 mEq Premix Inj 10 meq In 100 / 100 300 / 300 100 ml @ 100 mls/hr IV.SIG Q1H [facility] Rx#:[id number] KCl 20 mEq Premix Inj 20 meq In 100 / 100 100 ml @ 50 mls/hr IV.SIG Q2H [facility] Rx#:[id number] Rocephin Inj 1,000 MG In NS Inj 100 / 100 100 ML @ 200 mls/hr IV.SIG Q24H [facility] Rx#:[id number] Oral 1560 / 1560 720 / 720 Other 1380 / 1380 Output: Urine 1400 / 1400 Stool 1300 / 1300 Urine Amount (Catheter) 1999 Female External 1999 Other: Date of Last Bowel Movement 10/04/17 10/04/17 10/05/17 # Bowel Movements 5 1 Narrative: GENERAL: Well-developed, cachectic, in no acute distress. Patient is more alert today, she is orientated this time speaking in full sentences HEENT: Head is normocephalic patient has multiple bruises along and over her forehead. Facial features are symmetric. Eyes: Extraocular muscles are intact. Conjunctivae were clear. Oropharyngeal: Patient's lips appear to be very cracked with dried blood noted on the upper and lower lips. NECK: Supple without any masses. Trachea midline no deviation. No JVD, CARDIAC: Regular rhythm, regular rate. S1/S2 are heard. No murmurs gallops or rubs. LUNGS: Clear to auscultation bilaterally. No wheeze, rhonchi or rales. No use of accessory muscles on inspiration or expiration. ABDOMEN: Soft, nontender. Nondistended. Bowel sounds heard in all 4 quadrants. No organomegaly or masses. Negative rebound, negative guarding EXTREMITIES: No edema, pulses are equal bilaterally. No cyanosis or clubbing NEUROLOGY: Mood and affect appear appropriate. Cranial nerves II through XII grossly intact. Moving all extremities, speech is clear SKIN: Patient does have multiple bruises strewn throughout her whole body with multiple bruises measuring approximately 2-3 cm around both of her knees in the. She does have a rather significant bruise on her right hip area. Bruises across her forehead. Bruises on her arms. - Urinary Catheter Management Straight Cath placed during this visit: yes Reason for continuing: Not indwelling catheter Insertion date: 10/03/17 Insertion time: 08:05 Female External Cath placed during this visit: no Results - Labs CBC & Chem 7: 10/05/17 04:40 10/05/17 04:40 Laboratory Results - last 24 hr 10/04/17 10/04/17 10/05/17 15:26 21:06 04:40 CBC w Diff Slide review pending WBC 5.6 RBC 2.41 L Hgb 8.4 L Hct 25.2 L MCV 104.8 H MCH 34.7 H MCHC 33.1 RDW 16.1 Plt Count 189 MPV 7.4 Neut % (Auto) 53.3 Lymph % (Auto) 31.4 [place] % (Auto) 13.9 H Eos % (Auto) 0.9 Baso % (Auto) 0.5 Neut # (Auto) 2.9 Lymph # (Auto) 1.8 [place] # (Auto) 0.8 Eos # (Auto) 0.1 Baso # (Auto) 0.0 WBC Differential . Diff Scan Auto diff confirmed Differential Comment . Sodium Potassium Chloride Carbon Dioxide Anion Gap BUN Creatinine Estimated GFR POC Glucose 117 H 117 H Random Glucose Calcium Prot Corrected Calcium Total Bilirubin AST ALT Alkaline Phosphatase Ammonia Total Creatine Kinase CK-MB (CK-2) CK-MB (CK-2) % Total Protein Albumin 10/05/17 10/05/17 10/05/17 04:40 04:40 08:26 CBC w Diff WBC RBC Hgb Hct MCV MCH MCHC RDW Plt Count MPV Neut % (Auto) Lymph % (Auto) [place] % (Auto) Eos % (Auto) Baso % (Auto) Neut # (Auto) Lymph # (Auto) [place] # (Auto) Eos # (Auto) Baso # (Auto) WBC Differential Diff Scan Differential Comment Sodium 137 D Potassium 3.4 L D Chloride 108 H D Carbon Dioxide 17.0 L Anion Gap 12 BUN 9 Creatinine 0.69 Estimated GFR 89 POC Glucose 109 Random Glucose 89 Calcium 7.2 L* Prot Corrected Calcium 7.5 L Total Bilirubin 1.0 AST 130 H ALT 42 Alkaline Phosphatase 144 H Ammonia 41 H Total Creatine Kinase 254 H CK-MB (CK-2) 2.1 CK-MB (CK-2) % 0.8 Total Protein 6.5 Albumin 2.6 L 10/05/17 13:30 CBC w Diff WBC RBC Hgb Hct MCV MCH MCHC RDW Plt Count MPV Neut % (Auto) Lymph % (Auto) [place] % (Auto) Eos % (Auto) Baso % (Auto) Neut # (Auto) Lymph # (Auto) [place] # (Auto) Eos # (Auto) Baso # (Auto) WBC Differential Diff Scan Differential Comment Sodium Potassium Chloride Carbon Dioxide Anion Gap BUN Creatinine Estimated GFR POC Glucose 90 Random Glucose Calcium Prot Corrected Calcium Total Bilirubin AST ALT Alkaline Phosphatase Ammonia Total Creatine Kinase CK-MB (CK-2) CK-MB (CK-2) % Total Protein Albumin Microbiology 10/03/17 09:40 Blood - Peripheral Aerobic Blood Culture - Preliminary No growth in 2 days 10/03/17 09:40 Blood - Peripheral Anaerobic Blood Culture - Preliminary No growth in 2 days 10/03/17 09:30 Blood - Peripheral Aerobic Blood Culture - Preliminary No growth in 2 days 10/03/17 09:30 Blood - Peripheral Anaerobic Blood Culture - Preliminary No growth in 2 days 10/03/17 08:05 Clean Catch Urine Urine Culture - Final Escherichia coli - Procedures None Assessment and Plan - Assessment (1) Sepsis Code(s): A41.9 - Sepsis, unspecified organism Status: Acute (2) Encephalopathy Code(s): G93.40 - Encephalopathy, unspecified Status: Acute (3) Leukocytosis Code(s): D72.829 - Elevated white blood cell count, unspecified Status: Acute (4) Urinary tract infection Code(s): N39.0 - Urinary tract infection, site not specified Status: Acute (5) Hypokalemia Code(s): E87.6 - Hypokalemia Status: Acute (6) Acute renal failure Code(s): N17.9 - Acute kidney failure, unspecified Status: Acute (7) Rhabdomyolysis Code(s): M62.82 - Rhabdomyolysis Status: Acute (8) Metabolic acidosis Code(s): E87.2 - Acidosis Status: Acute - Plan Sepsis, resolved -Patient meets criteria with leukocytosis, tachypnea, urinary tract infection -Patient was given Rocephin emergency department will continue that at this time -Continue follow urine culture which indicates pansensitive E. coli -Chest x-ray does not indicate acute abnormality -Blood cultures are negative for 2 day Encephalopathy, likely metabolic/hepatic from alcohol withdrawal, improving -CT the brain did not indicate any acute abnormality -Laboratory studies indicate significant abnormalities to include acute renal failure, elevated ammonia level, elevated liver enzymes, rhabdomyolysis -Continue to monitor neurological function every 2 hours -Continue lactulose 30 mL's twice daily -[facility] protocol Acute renal failure, improving -Likely secondary to dehydration, rhabdomyolysis -Improving significantly with IV hydration -CT the abdomen does not indicate any acute findings or obstructive process -Monitor renal function -Avoid nephrotoxins Metabolic acidosis, resolved -Likely secondary to renal failure, -Continue to follow anion gap -If no significant improvement may need sodium bicarb Rhabdomyolysis, improving -Probably secondary to patient being down for prolonged period of time -Continue IV hydration, encourage p.o. intake -Monitor CPK level Elevated liver enzymes, hyperbilirubinemia, improving -Likely due to chronic alcoholism -CT scan does show hepatomegaly with hepatic steatosis -Continue to follow liver enzymes Hypokalemia -Continue monitor and replete as needed Hypothyroidism -Patient was elevated TSH 8.4, previous TSH on 05/25 was 6.2 -Patient likely noncompliant with her medications -Continue levothyroxine 25 mcg daily DVT prevention -Sequential compression devices Discharge Planning: Anticipate discharge home tomorrow if patient continues to improve.
[2017-10-06 06:57] LABS: Baso % (Auto) 0.9 % (0.0-2.0); Eos % (Auto) 0.3 % (0.0-4.0); Hematocrit 29.3 % (35.0-46.0); Hemoglobin 9.5 gm/dL (11.6-15.3); Lymph # (Auto) 1.2 th/mm3 (1.0-4.8); Lymph % (Auto) 25.7 % (9.0-44.0); Mean Corpuscular HGB Conc 32.4 % (32.0-36.0); Mean Corpuscular Hemoglobin 34.2 pg (27.0-34.0); Mean Corpuscular Volume 105.6 fL (80.0-100.0); Mean Platelet Volume 8.1 fL (7.0-11.0); Mono # (Auto) 0.7 th/mm3 (0.0-0.9); Mono % (Auto) 14.4 % (0.0-8.0); Neut # (Auto) 2.7 th/mm3 (1.8-7.7); Neut % (Auto) 58.7 % (16.0-70.0); Platelet Count 231 th/mm3 (150-450); Red Blood Count 2.77 mil/mm3 (4.00-5.30); Red Cell Distribution Width 15.9 % (11.6-17.2); White Blood Count 4.6 th/mm3 (4.0-11.0)
[2017-10-06 07:24] LABS: Alanine Aminotransferase 44 U/L (10-53); Albumin 2.7 g/dL (3.4-5.0); Alkaline Phosphatase 152 U/L (45-117); Anion Gap 13 meq/L (5-15); Aspartate Aminotransferase 129 U/L (15-37); Blood Urea Nitrogen 5 mg/dL (7-18); Calcium 7.2 mg/dL (8.5-10.1); Chloride 108 meq/L (98-107); Creatine Kinase 166 U/L (26-192); Glomerular Filtration Rate Greater Than 89 mL/min (>89); Glucose,Random 80 mg/dL (74-106); Potassium 3.2 meq/L (3.5-5.1); Sodium 138 meq/L (136-145); Total Protein 6.9 g/dL (6.4-8.2)
[2017-10-06 07:55] LABS: Creatine Kinase MB 1.7 ng/mL (0.5-3.6)
[2017-10-06] MEDS: Folic Acid 1 MG Tablet PO SCH (08:51)
[2017-10-06] MEDS ORDERED: Calcium Chloride Inj 1 GM in Dextrose 5% in Water Inj 100 ML IV.SIG ONE ×2 (09:00)
[2017-10-06] MEDS: rifAXIMin 550 MG Tablet PO SCH ×2 (09:05→22:41)
--- NOTE | 2017-10-06 11:49 | P.PN ---
Subjective Interval history: 56-year-old female who is seen and examined today in follow-up for alcohol withdrawal, patient doing much better today. Patient has been transferred down to medical floor. She is more coherent.. Physical therapy and again the patient is go to rehab initially. Patient states that she does not undergo rehab that she is going to go home. She states that her daughter is going to come live with her. Vital signs are stable, patient is afebrile Physical Exam Vital signs: Vital Signs 10/05/17 12:00 10/05/17 16:00 10/05/17 18:00 Temperature 98.3 F Pulse Rate 96 H 84 86 Respiratory Rate 23 16 Blood Pressure 125/90 142/91 H Pulse Oximetry 10/05/17 20:00 10/05/17 21:34 10/06/17 00:00 Temperature 99.1 F 99.3 F 98.4 F Pulse Rate 87 96 H 78 Respiratory Rate 16 16 16 Blood Pressure 144/97 H 155/96 H 143/84 H Pulse Oximetry 100 100 100 10/06/17 08:00 10/06/17 11:02 Temperature 98.4 F Pulse Rate 83 Respiratory Rate 18 Blood Pressure 140/95 H Pulse Oximetry 100 99 Intake & Output 10/05/17 10/06/17 10/06/17 18:59 06:59 18:59 Intake Total 3060 / 3060 1999 / 1999 100 / 100 Output Total 800 / 800 500 / 500 Balance 2260 / 2260 1500 / 1500 100 / 100 Weight 59.6 kg Intake: IV 2099 / 2099 100 / 100 NS + KCl 20 mEq Inj 1,000 ML @ 1999 125 mls/hr IV.CONT .Q8H [facility] Rx# :[id number] Rocephin Inj 1,000 MG In NS Inj 100 / 100 100 / 100 100 ML @ 200 mls/hr IV.SIG Q24H [facility] Rx#:[id number] Oral 960 / 960 Output: Urine 800 / 800 Urine Amount (Catheter) 500 / 500 Female External 500 / 500 Other: Date of Last Bowel Movement 10/05/17 # Bowel Movements 5 8 Narrative: GENERAL: Well-developed, cachectic, in no acute distress. Patient is alert and orientated HEENT: Head is normocephalic patient has multiple bruises along and over her forehead. Facial features are symmetric. Eyes: Extraocular muscles are intact. Conjunctivae were clear. Oropharyngeal: Patient's lips appear to be very cracked with dried blood noted on the upper and lower lips. NECK: Supple without any masses. Trachea midline no deviation. No JVD, CARDIAC: Regular rhythm, regular rate. S1/S2 are heard. No murmurs gallops or rubs. LUNGS: Clear to auscultation bilaterally. No wheeze, rhonchi or rales. No use of accessory muscles on inspiration or expiration. ABDOMEN: Soft, nontender. Nondistended. Bowel sounds heard in all 4 quadrants. No organomegaly or masses. Negative rebound, negative guarding EXTREMITIES: No edema, pulses are equal bilaterally. No cyanosis or clubbing NEUROLOGY: Mood and affect appear appropriate. Cranial nerves II through XII grossly intact. Moving all extremities, speech is clear SKIN: Patient does have multiple bruises strewn throughout her whole body with multiple bruises measuring approximately 2-3 cm around both of her knees in the. She does have a rather significant bruise on her right hip area. Bruises across her forehead. Bruises on her arms. - Urinary Catheter Management Straight Cath placed during this visit: yes Reason for continuing: Not indwelling catheter Insertion date: 10/03/17 Insertion time: 08:05 Female External Cath placed during this visit: no Results - Labs CBC & Chem 7: 10/06/17 05:20 10/06/17 05:20 Laboratory Results - last 24 hr 10/05/17 10/05/17 10/05/17 13:30 17:22 20:40 CBC w Diff WBC RBC Hgb Hct MCV MCH MCHC RDW Plt Count MPV Neut % (Auto) Lymph % (Auto) [place] % (Auto) Eos % (Auto) Baso % (Auto) Neut # (Auto) Lymph # (Auto) [place] # (Auto) Eos # (Auto) Baso # (Auto) WBC Differential Differential Comment Sodium Potassium Chloride Carbon Dioxide Anion Gap BUN Creatinine Estimated GFR POC Glucose 90 112 H 95 Random Glucose Calcium Prot Corrected Calcium Total Bilirubin AST ALT Alkaline Phosphatase Ammonia Total Creatine Kinase CK-MB (CK-2) Total Protein Albumin 10/06/17 10/06/17 10/06/17 05:20 05:20 05:20 CBC w Diff Auto diff final WBC 4.6 RBC 2.77 L Hgb 9.5 L Hct 29.3 L MCV 105.6 H MCH 34.2 H MCHC 32.4 RDW 15.9 Plt Count 231 MPV 8.1 Neut % (Auto) 58.7 Lymph % (Auto) 25.7 [place] % (Auto) 14.4 H Eos % (Auto) 0.3 Baso % (Auto) 0.9 Neut # (Auto) 2.7 Lymph # (Auto) 1.2 [place] # (Auto) 0.7 Eos # (Auto) 0.0 Baso # (Auto) 0.0 WBC Differential . Differential Comment . Sodium 138 Potassium 3.2 L Chloride 108 H Carbon Dioxide 17.0 L Anion Gap 13 BUN 5 L Creatinine 0.53 Estimated GFR Greater than 89 POC Glucose Random Glucose 80 Calcium 7.2 L* Prot Corrected Calcium 7.3 L* Total Bilirubin 0.9 AST 129 H ALT 44 Alkaline Phosphatase 152 H Ammonia 40 H Total Creatine Kinase 166 CK-MB (CK-2) 1.7 Total Protein 6.9 Albumin 2.7 L Microbiology 10/03/17 09:40 Blood - Peripheral Aerobic Blood Culture - Preliminary No growth in 3 days 10/03/17 09:40 Blood - Peripheral Anaerobic Blood Culture - Preliminary No growth in 3 days 10/03/17 09:30 Blood - Peripheral Aerobic Blood Culture - Preliminary No growth in 3 days 10/03/17 09:30 Blood - Peripheral Anaerobic Blood Culture - Preliminary No growth in 3 days 10/03/17 08:05 Clean Catch Urine Urine Culture - Final Escherichia coli - Procedures None Assessment and Plan - Assessment (1) Sepsis Code(s): A41.9 - Sepsis, unspecified organism Status: Acute (2) Encephalopathy Code(s): G93.40 - Encephalopathy, unspecified Status: Acute (3) Leukocytosis Code(s): D72.829 - Elevated white blood cell count, unspecified Status: Acute (4) Urinary tract infection Code(s): N39.0 - Urinary tract infection, site not specified Status: Acute (5) Hypokalemia Code(s): E87.6 - Hypokalemia Status: Acute (6) Acute renal failure Code(s): N17.9 - Acute kidney failure, unspecified Status: Acute (7) Rhabdomyolysis Code(s): M62.82 - Rhabdomyolysis Status: Acute (8) Metabolic acidosis Code(s): E87.2 - Acidosis Status: Acute - Plan Sepsis, resolved -Patient meets criteria with leukocytosis, tachypnea, urinary tract infection -Patient was on Rocephin, will change to Ceftin for completion of antibiotics for her urinary tract infection -Continue follow urine culture which indicates pansensitive E. coli -Chest x-ray does not indicate acute abnormality -Blood cultures are negative for 3 day Encephalopathy, likely metabolic/hepatic from alcohol withdrawal, improving -CT the brain did not indicate any acute abnormality -Laboratory studies indicate significant abnormalities to include acute renal failure, elevated ammonia level, elevated liver enzymes, rhabdomyolysis -Continue to monitor neurological function every 2 hours -Discontinue lactulose, start rifaximin -Discontinue CIWA protocol Acute renal failure, improving -Likely secondary to dehydration, rhabdomyolysis -Improving significantly with IV hydration -CT the abdomen does not indicate any acute findings or obstructive process -Monitor renal function -Avoid nephrotoxins Metabolic acidosis, resolved -Likely secondary to renal failure, -Continue to follow anion gap -If no significant improvement may need sodium bicarb Rhabdomyolysis, improving -Probably secondary to patient being down for prolonged period of time -Continue IV hydration, encourage p.o. intake -Monitor CPK level Elevated liver enzymes, hyperbilirubinemia, improving -Likely due to chronic alcoholism -CT scan does show hepatomegaly with hepatic steatosis -Continue to follow liver enzymes Electrolyte abnormalities with hypocalcemia, hypokalemia -Continue monitor and replete as needed Hypothyroidism -Patient was elevated TSH 8.4, previous TSH on 05/25 was 6.2 -Patient likely noncompliant with her medications -Continue levothyroxine 25 mcg daily DVT prevention -Sequential compression devices Discharge Planning: Anticipate discharge home tomorrow
--- NOTE | 2017-10-06 15:11 | P.DCO ---
- Physical Therapy Order: Evaluate and treat, Improve ambulation, Strength and gait training - Occupational Therapy Order: Evaluate and treat, Improve ADL - Home Health Nursing Order: Medical education, Signs/symptoms of disease process, Nursing assessment with vital signs - Certification I have seen patient Arlet Espana on 10/06/17. My clinical findings support the need for the requested home health care services because: Deconditioned with increased weakness, Limited ability to care for self I certify that my clinical findings support that this patient is homebound because: Unsteady gait/balance, Unsafe to leave home unassisted
[2017-10-07] MEDS: Acetaminophen 325 MG Tablet PO PRN ×2 (01:27→08:29)
--- NOTE | 2017-10-07 07:46 | P.DS ---
Date of admission: 10/03/17 10:53 Primary care physician: UNKNOWN Attending physician on discharge: Lee Castañeda Anticipated date of discharge: 10/07/17 Brief History from admission: 56-year-old female with known history of alcohol abuse, hypothyroidism, chronic back pain who currently cannot give much information in regards to her medical condition. Patient only continues to reiterate I felt, I tripped, pretty much with all questions answered as were the same. That she tripped and fell. ER documentation indicates that apparently the daughter have been trying to contact her since 2 in the morning and examined able to get through to her so she called 911 who presented to the patient's house and found last room and about the room and the patient have been down on the ground for unknown period. Patient was brought to the emergency department found to have multiple medical problems to include encephalopathy, acute renal failure, rhabdomyolysis. Patient does indicate that she quit drinking 5 days ago. Nursing staff indicates that the daughter also indicates that the patient has history of alcoholic benders and possibly her last drink was Monday. DS: Diagnosis - Discharge Diagnosis (1) Physical deconditioning Status: Acute (2) Encephalopathy Status: Acute (3) Rhabdomyolysis Status: Acute (4) Leukocytosis Status: Acute (5) Urinary tract infection Status: Acute (6) Hypokalemia Status: Acute (7) Acute renal failure Status: Acute (8) Metabolic acidosis Status: Acute (9) Sepsis Status: Acute DS: Medications - Discharge Medications Prescriptions: cefuroxime axetil 250 mg PO Q12HR #14 tab folic acid 1 mg PO DAILY #30 tab levothyroxine 25 mcg PO DAILY@0600 #30 tab rifaximin [Xifaxan] 550 mg PO Q12HR #60 tab thiamine HCl (vitamin B1) 100 mg PO DAILY #30 tab DS: Summary Hospital Course: 56-year-old female who originally presented the hospital because of altered mental status, alcohol withdrawal who was found to have significant abnormalities with encephalopathy, rhabdomyolysis, electrolyte disturbances. Patient was originally admitted to the ICU with [facility] protocol. Apparently the patient had just gotten out of a alcohol treatment program and started drinking again. Patient was with alcohol for approximately 3-5 days, exact time is unknown due to patient's mentation on presentation. Patient tolerated treatment well with IV fluids, Ativan administration. Patient was found to have urinary tract infection in which she was started on Rocephin. Patient's labs were monitored on a daily basis and electrolytes were replaced as needed. CPK was monitored during the patient's stay which significant improved on a daily basis. Patient did have hepatic encephalopathy in which she was started on lactulose, patient has significant amount of stools and she was changed to rifaximin. Stools have improved. Electrolytes have stabilized. Patient clinically improved at this time. Case management has been involved in the case. Patient's daughter anticipates pursuing a [place] act in order for the patient to continue her alcohol abuse treatment. Patient clinically stable this time. She is alert and orientated. Discharged to the daughter's care. - Time Spent with Patient Total time spent providing and/or coordinating discharge services: Greater than 30 minutes - Quality: VTE Deep Vein Thrombosis/Pulmonary Embolism Present on Admission: No Exam Vital signs: Vital Signs 10/06/17 08:00 10/06/17 11:02 10/06/17 12:00 Temperature 98.4 F 98.1 F Pulse Rate 83 85 Respiratory Rate 18 18 Blood Pressure 140/95 H 151/97 H Pulse Oximetry 100 99 100 10/06/17 16:00 10/06/17 20:00 10/07/17 00:00 Temperature 98.5 F 99.2 F 99.7 F H Pulse Rate 93 H 93 H 81 Respiratory Rate 18 16 16 Blood Pressure 138/89 138/92 H 139/73 Pulse Oximetry 100 98 100 Intake & Output 10/06/17 10/07/17 10/07/17 18:59 06:59 18:59 Intake Total 1934 / 1935 1000 / 1000 Balance 1934 / 1934 1000 / 1000 Weight 58.5 kg Intake: IV 1210 / 1210 1000 / 1000 NS + KCl 20 mEq Inj 1,000 ML @ 1000 / 1000 1000 / 1000 75 mls/hr IV.CONT .[id number] [facility] Rx#:[id number] Calcium Chloride Inj 1 GM In 110 / 110 D5W Inj 100 ML @ 110 mls/hr IV. SIG ONCE ONE Rx#:[id number] Rocephin Inj 1,000 MG In NS Inj 100 / 100 100 ML @ 200 mls/hr IV.SIG Q24H [facility] Rx#:[id number] Oral 725 / 725 Other: # Voids 4 2 Date of Last Bowel Movement 10/05/17 # Bowel Movements 0 Narrative: GENERAL: Well-developed, cachectic, in no acute distress. Patient is alert and orientated HEENT: Head is normocephalic patient has multiple bruises along and over her forehead. Facial features are symmetric. Eyes: Extraocular muscles are intact. Conjunctivae were clear. Oropharyngeal: Patient's lips appear to be very cracked with dried blood noted on the upper and lower lips. NECK: Supple without any masses. Trachea midline no deviation. No JVD, CARDIAC: Regular rhythm, regular rate. S1/S2 are heard. No murmurs gallops or rubs. LUNGS: Clear to auscultation bilaterally. No wheeze, rhonchi or rales. No use of accessory muscles on inspiration or expiration. ABDOMEN: Soft, nontender. Nondistended. Bowel sounds heard in all 4 quadrants. No organomegaly or masses. Negative rebound, negative guarding EXTREMITIES: No edema, pulses are equal bilaterally. No cyanosis or clubbing NEUROLOGY: Mood and affect appear appropriate. Cranial nerves II through XII grossly intact. Moving all extremities, speech is clear SKIN: Patient does have multiple bruises strewn throughout her whole body with multiple bruises measuring approximately 2-3 cm around both of her knees in the. She does have a rather significant bruise on her right hip area. Bruises across her forehead. Bruises on her arms. Results Procedures completed during hospitalization: None Labs on day of discharge: Labs from last 24 hours 10/06/17 05:20 CK-MB (CK-2) 1.7 Preliminary micro results at discharge 10/03/17 09:40 Aerobic Blood Culture - Preliminary Blood - Peripheral No growth in 3 days Anaerobic Blood Culture - Preliminary No growth in 3 days 10/03/17 09:30 Aerobic Blood Culture - Preliminary Blood - Peripheral No growth in 3 days Anaerobic Blood Culture - Preliminary No growth in 3 days - Impressions ITS Impressions Cervical Spine CT 10/03/17 07:06 CONCLUSION: 1. Degenerative changes without fracture or listhesis. Chest X-Ray 10/03/17 07:06 CONCLUSION: 1. No acute cardiopulmonary disease. Head CT 10/03/17 07:06 CONCLUSION: 1. No acute intracranial abnormality. . Chest CT 10/03/17 09:17 CONCLUSION: 1. Prominent right axillary lymph node is identified and nonspecific as to etiology. 2. Hepatic steatosis. Abdomen/Pelvis CT 10/03/17 09:19 CONCLUSION: 1. There are no acute findings. 2. Hepatomegaly and hepatic steatosis. Discharge Plan - Discharge Disposition Patient Disposition: /Home Health Service - Discharge Condition Condition: Stable - Discharge Order Discharge Orders: Discharge Order (Routine); Ordered 10/07/17 Ordered By: Migue Dumont - Discharge Details Anticipated Discharge Date: 10/07/17 - Physicians Team Primary Care Provider: UNKNOWN, Attending Provider: Lee Castañeda
[2017-10-07] MEDS: Folic Acid 1 MG Tablet PO SCH (08:29)
[2017-10-07] MEDS: rifAXIMin 550 MG Tablet PO SCH (08:31)
== END 2017-10-07 13:37 | disposition home health service (06) ==
LOC: PHED 07:00 → PHEDA 10:53 → PHICU 13:34 → PH3 10-05 20:58
PROVIDERS: ADMIT Hospitalist; ATTEND Hospitalist